=== PATIENT | male | born 1960 | race Caucasian/White ===

== ENCOUNTER 2017-01-22 22:17 | Inpatient (IN) ==
[2017-01-22] MEDS ORDERED: NOREPINEPHRINE 4 MG/4 ML VIAL IV ONE (22:49)
--- NOTE | 2017-01-22 23:06 | Emergency Department Note ---
Hunter Schaffer Brittany, am scribing for, and in the presence of, Storm Gutierrez MD 23:02. Matt Schaffer Robert M, MD, personally performed the services described in this documentation, ascribed by Taina Harrison in my presence, and it is both accurate and complete 304 . Arrival - Arrival Chief Complaint: Urogenital - Male Stated Complaint: Sepsis, UTI ED Nursing Triage Note: transferred from [facility] with diagnosis of sepsis, uti. patient was diagnosed with uti earlier this week and put on bactrim. antibiotic changed yesterday to cipro due to failed treatment. ems reports temp of 100 and given motrin prior to transfer. 97.8 at time of triage. Mode of Arrival: Stretcher Limitations: No Limitations Source: Patient, Significant other, RN Notes Reviewed - History of Present Illness HPI Narrative: Patient is a 56 y/o white male presenting to the ED by EMS from [facility] for further evaluation of Sepsis. Patient states that over the past week he began to experience generalized weakness with which he was bedridden for 3 days. The following Thursday he went to work as scheduled but after becoming dizzy and weaker he left to seek medical attention at primary care clinic. He then left after not being able to get seen. He reports from there he stayed home the following day due to worsening of symptoms even becoming disoriented and experiencing worsening of weakness. He states he had also had some difficulty with urination and considered possible UTI, but due to history of urinary and bowel problems s/p back injury a few years ago he was unsure about etiology of problem. He reports he was seen in clinic later that day and was diagnosed with a UTI after having a WBC count of 17,000 and placed on Bactrim. Patient states two days later he presented back to the clinic due and placed on Cipro due to Bactrim not being effective and was told his WBC count had increased to 19,000. After experiencing an increase in fatigue, weakness, and not feeling any better he presented to [facility] ER and was found to be septic with a WBC count of 29,000. In room patient is hypotensive with a blood pressure of 76/36 mmHg. Patient is mentating clearly and is oriented to person, place, and time He has no other complaint/pain. Allergies/Adverse Reactions: Allergies Allergy/AdvReac Type Severity Reaction Status Date / Time No Known Allergies Allergy Verified 07/24/15 08:32 Review of System - Review of System 12 point system: reviewed and no additional remarkable complaints except as stated - Review of System Constitutional: Present: fever, weakness Genitourinary male: Present: as per HPI, dysuria Medical,Surgical,& Family Hx - Medical History Cardio: History of: Hypertension, Cardiovascular Problems (vena cava implant) Musculoskeletal: History of: Back/Neck Problems (back surgery 2016) - Social History Smoking Status: Never smoker Frequency of Alcohol Use: None Type of Drug Use: None Exam Vital Signs: Vital Signs Temperature 97.8 F 01/22/17 22:17 Pulse Rate 96 H 01/22/17 22:17 Respiratory Rate 20 01/22/17 22:17 Blood Pressure 88/54 01/22/17 22:17 O2 Sat by Pulse Oximetry 95 01/22/17 22:17 - General General appearance: alert, in no apparent distress, obese (morbidly) - Head Head exam: Present: atraumatic, normocephalic, normal inspection - Eye Eye exam: Present: normal appearance, PERRL, EOMI - ENT ENT exam: Present: normal exam, normal oropharynx, mucous membranes moist - Neck Neck exam: Present: normal inspection, full ROM, trachea midline - Chest Chest inspection: Present: normal inspection, symmetric chest wall rise - Respiratory Respiratory exam: Present: normal lung sounds bilaterally. Absent: rales, rhonchi, wheezes - Cardiovascular Cardiovascular exam: Present: regular rate, normal rhythm, normal heart sounds. Absent: murmur, rubs, gallop - Abdominal Exam Abdominal exam: Present: soft, tenderness (dull paraumbilical tenderness), normal bowel sounds. Absent: distention - Extremities Exam Extremities exam: Present: normal inspection - Back Exam Back exam: Present: normal inspection - Neurological Exam Neurological exam: Present: alert, oriented X3 (patient is mentating clearly and is oriented to person, place, and time), CN II-XII intact. Absent: motor sensory deficit - Psychiatric Psychiatric exam: Present: normal affect - Skin Skin exam: Present: warm, dry, intact, normal color. Absent: diaphoresis Course - Consultations Consultation #1: Dr. Monika Jones will evaluate and admit the patient to the hospitalist service. He will be admitted to the ICU. He requests I place a central line. Time: 23:05 Procedures - Central Line Placement Right IJ Consent Obtained: verbal consent Time Out Performed: No Patient Placed on Monitor/Pulse Ox: Yes MD Prep: mask, gown, gloves Central Line Prep: Chlorhexidine scrub Local Anesthetic: lidocaine 1% Amount of anesthesia used (mL): 5 Ultrasound Used for Placement: Yes Central Line Lumen Inserted: triple Post Procedure: sutured in place, good blood return, all ports aspirated, flushed, capped, sterile dressing applied Post Procedure X-Ray: tip of catheter in good position Patient Tolerated Procedure: well, no complications Complications: none Critical Care Time Critical Care Time: Yes Total Critical Care Time: 43 Disposition Clinical Impression: Sepsis, Urinary tract infection Case discussed with: patient, patient's family Disposition: Still a Patient Condition: Stable Time of Disposition: 23:19
[2017-01-22] MEDS ORDERED: MORPHINE 2 MG/1 ML SYRINGE IV PRN (23:52)
[2017-01-22] MEDS ORDERED: ALBUTEROL/IPRATROPIUM 3 ML NEB RESP TX PRN (23:52)
[2017-01-22] MEDS ORDERED: ONDANSETRON 4 MG/2 ML VIAL IV PRN (23:52)
[2017-01-22] MEDS ORDERED: SODIUM CHLORIDE 0.9% 4,500 ML IV ONE (23:58)
[2017-01-23] MEDS: NOREPINEPHRINE 8 MG in SODIUM CHLORIDE 0.9% 242 ML IV SCH
--- NOTE | 2017-01-23 00:14 | Hospitalist History & Physical ---
Assessment and Plan - Time spent with patient Time spent with patient: Greater than 30 minutes (1) Sepsis Status: Acute Assessment and plan: Sepsis secondary to urinary tract infection and prostatitis related to urinary retention. I suspect gram-negative bacteremia given his degree of lactic acidosis and hypotension . The patient has received 4 L of IV fluid resuscitation. A central line was placed in the emergency department. Current Visit: Yes Qualifiers: Sepsis type: sepsis due to unspecified organism Qualified Code(s): A41.9 - Sepsis, unspecified organism (2) Urinary tract infection Status: Acute Assessment and plan: Urine culture and blood culture obtained. Patient started on Merrem and Levaquin. Urology consult. Current Visit: Yes Qualifiers: Urinary tract infection type: site unspecified Hematuria presence: without hematuria Qualified Code(s): N39.0 - Urinary tract infection, site not specified (3) NAJMA (acute kidney injury) Status: Acute Assessment and plan: Due to sepsis and hypotension with prerenal azotemia. IV fluids given. Avoid nephrotoxic medications. Follow-up a.m. labs. Current Visit: Yes (4) Lactic acidosis Status: Acute Current Visit: Yes (5) Prostatitis Status: Acute Assessment and plan: Consult urology. Continue fluoroquinolones and Merrem. Current Visit: Yes Qualifiers: Prostatitis type: acute Qualified Code(s): N41.0 - Acute prostatitis (6) Urinary retention Status: Chronic Assessment and plan: Nursing staff was unable to pass a Caruso despite 2 attempts and a coud catheter. Dr. Cleveland in the emergency department to evaluate patient and perform a dilatation and Caruso placement. The patient has a history of back pain and neuropathy and has an element of chronic urinary retention although not usually this bad. A bladder scan performed in the emergency department showed a residual urine of greater than 1000 cc. Current Visit: Yes (7) Chronic back pain Status: Chronic Current Visit: Yes Qualifiers: Back pain location: low back pain (8) Neuropathy Status: Chronic Current Visit: Yes (9) Hypertension Status: Chronic Current Visit: Yes Qualifiers: Hypertension type: essential hypertension Qualified Code(s): I10 - Essential (primary) hypertension History of Present Illness History of present illness: Mr. Gloria is a 56 year old male Allergies Allergy/AdvReac Type Severity Reaction Status Date / Time No Known Allergies Allergy Verified 07/24/15 08:32 Medical,Surgical,& Family Hx - Medical History Cardio: History of: Hypertension, Cardiovascular Problems (vena cava implant) Musculoskeletal: History of: Back/Neck Problems (back surgery 2016) - Social History Smoking Status: Never smoker Frequency of Alcohol Use: None Type of Drug Use: None 12 point system: reviewed and no additional remarkable complaints except as stated - Constitutional Constitutional: Present: as per HPI, chills, fatigue, fever(s), lethargy, malaise - Genitourinary Genitourinary: Present: as per HPI, difficulty urinating, dysuria, other (Pain in the perineal area posterior to the scrotum.). Absent: hematuria Exam - Constitutional Vitals: Period Temp Pulse Resp BP Sys/Mccray Pulse Ox Last 24 Hr 97.8 F 96 20 88/54 95 Exam: Constitutional System: Severe distress. No tremulousness. Hypotensive and tachycardic. Morbidly obese Head: Normocephalic, atraumatic. Ears, Nose and Throat System: No pain or tenderness. No epistaxis or discharge Eyes System: Pupils equal, round, and reactive. Extraocular muscles intact. Neck: Supple, without adenopathy, No jugular venous distention. No thyromegaly, neck mass, or prior surgery apparent. Respiratory System: Chest clear to auscultation. Cardiovascular System: Heart with regular rate and rhythm. No murmur. GI System: Abdomen soft, nontender. Normo active bowel sounds present. Musculoskeletal System: limbs with no pedal edema. Full distal pulses. Neurological System: No discernable sensory deficit. No aphasia Psychiatric System: Conversation is rational Results - Labs Lab Results: I have reviewed the past 24 hour labs Labs: The labs from the outside facility were reviewed.
[2017-01-23] MEDS ORDERED: PROMETHAZINE 25 MG/1 ML VIAL ONE (01:21)
[2017-01-23] MEDS ORDERED: PROMETHAZINE 25 MG/1 ML VIAL IM ONE (01:22)
[2017-01-23] MEDS ORDERED: MEPERIDINE 50 MG/1 ML VIAL IM ONE (01:22)
[2017-01-23] MEDS ORDERED: MEPERIDINE 50 MG/1 ML VIAL ONE (01:22)
--- NOTE | 2017-01-23 01:59 | Urology Consultation ---
History of Present Illness - Data of Consult Consult date: 01/22/17 - Consult Narrative History of present illness: Mr. Gloria is a 56 year old white male with past history of urethral stricture was seen with Urinary Tract Infection and Sepsis. He was dilated with 22 Turkmen with Baptiste followers and a 16 Anthony was passed. He has a posterior urethral stricture and had over 1000 cc's of residual urine. I will leave anthony in for now. CC: Chloe Vital MD - Home Medications and Allergies Allergies/Adverse Reactions: Allergies Allergy/AdvReac Type Severity Reaction Status Date / Time No Known Allergies Allergy Verified 07/24/15 08:32
[2017-01-23 03:10] LABS: Apearance,Urine CLEAR (Clear); Bacteria,Urine Occasional /HPF (Few); Bilirubin,Urine Negative (Negative); Blood, Urine Small mg/dL (Negative); Glucose,Urine (UA) Negative (Negative); Ketones,Urine Negative (Negative); Mucus,Urine Occasional /LPF (Occasional); Nitrite,Urine Negative (Negative); Protein,Urine Negative; RBC,Urine 27 /HPF (0-4); Urine Color Yellow (Yellow); Urine Specific Gravity 1.018 (1.001-1.035); Urine Urobilinogen < 2.0 EU/DL (0.2-1.0); WBC,Urine 5 /HPF (0-6)
[2017-01-23] MEDS: MEROPENEM 1,000 MG in SODIUM CHLORIDE 0.9% 100 ML IV SCH ×3 (03:49→16:22)
[2017-01-23] MEDS: LEVOFLOXACIN INJ 750 MG in PREMIX 1 EACH IV SCH (03:49)
[2017-01-23] MEDS: SODIUM CHLORIDE 0.9% 1,000 ML IV SCH ×3 (03:50→19:30)
[2017-01-23 04:29] LABS: Basophils # 0.1 10*3/uL (0.0-0.2); Basophils % 0.2 % (0.0-0.8); Eosinophils # 0.1 10*3/uL (0.0-0.87); Eosinophils % 0.3 % (0.00-10.9); Hematocrit 31.7 VOL% (42.0-52.0); Hemoglobin 9.9 GM/DL (14.0-18.0); Immature Granulocytes % 0.9 %; Immature Granulocytes Absolute 0.27 #; Lymphocytes # 0.9 10*3/uL (1.4-4.0); Lymphocytes % 3.2 % (21.2-54.2); Mean Corpuscular HGB Conc 31.2 GM/DL (32-36); Mean Corpuscular Hemoglobin 25 PG (27-34); Mean Corpuscular Volume 81.1 FL (87-102); Mean Platelet Volume 11.6 FL (9.6-12.0); Monocytes % 3.5 % (1.7-12.7); Neutrophils # 26.6 10*3/uL (1.4-7.4); Neutrophils % 91.9 % (38.7-73.9); Platelet Count 273 T/CUMM (130-400); Red Blood Count 3.91 MC/CUMM (3.8-5.5); Red Cell Distribution Width 13.9 % (9.3-17.3)
[2017-01-23 05:03] LABS: Albumin 2.7 G/DL (3.4-5.0); Bilirubin,Total 0.5 MG/DL (0.2-1.0); Calcium 7.6 MG/DL (8.5-10.1); Magnesium 2.1 MG/DL (1.8-2.4); Osmolality,Calculated 282.7 MOS/KG (273-304); Potassium 4.3 MMOL/L (3.5-5.1); Total Protein 5.8 G/DL (6.4-8.3)
[2017-01-23 05:24] LABS: Band Neutrophils 10 % (0-10); Eosinophils 1 % (0-10); Lymphocytes 3 % (20-55); Segmented Neutrophils 83 % (50-85); Total Cells Counted 100
[2017-01-23 05:25] LABS: Elliptocytes Few; Hypochromasia 1+; Platelet Estimate Adequate
--- NOTE | 2017-01-23 07:15 | XRay Report ---
XR chest 1V portable Indication: Catheter placement Comparison: None available Findings: The heart and mediastinum are normal in size and configuration. Right internal jugular catheter is present with tip overlying superior vena cava. The pulmonary vascularity is normal in caliber. No lung infiltrates, effusions, pneumothorax or other abnormality is demonstrated. Impression: Catheter appears within normal limits. No other interval changes. PROCEDURE INTERPRETED AT [facility] [place] DEPARTMENT OF RADIOLOGY Final Report Signed by: Dr. Melvin Santiago
--- NOTE | 2017-01-23 07:39 | Urology Progress Note ---
Urology - PN: Subj Interval history: The patient's urine is clear post urethral dilatation. His creatinine is normal and his urinalysis shows 5 WBCs. He was previously diagnosed in [place] earlier this week with a urinary tract infection is been on antibiotic so that may be the reason that there is no evidence of infection at this time. I will leave the Caruso catheter in for now but it can come out as needed. The patient did have over thousand cc residual urine when catheterized last night Exam - Constitutional Vitals: Period Temp Pulse Resp BP Sys/Mccray Pulse Ox Last 24 Hr 99.7 F-99.9 F 99-112 18-25 68-112/51-68 96-100 Results - Labs CBC & BMP: 01/23/17 04:18 01/23/17 04:18
[2017-01-23] MEDS: ACETAMINOPHEN 325 MG TABLET PO PRN (07:48)
--- NOTE | 2017-01-23 08:32 | Physician Query Form ---
CLICK EDIT DOCUMENT TO SELECT QUERY ANSWER --> OK --> SIGN Amanda Gutierrez RN, CCDS Certified Clinical Senior Product Marketing Manager W) [phone] (f) [phone] [email or web address] PROVIDERS: Make your selection(s) from the choices in EACH section by typing an "x" and enter comments in the comment section. Please use your independent medical judgment in providing your response. This request does not imply that any particular answer is desired or expected. CLINICAL INDICATORS: (Providers should not edit this section) The medical record indicates that the patient was admitted with sepsis due to UTI, BP in the ER was 88/54/ later would drop to 68/53, and "received 4 L of IV fluid resuscitation". Please clarify which, if any, of the following is the etiology of the above symptoms and treatment rendered: (x ) Septic shock ( ) Hypovolemic shock ( ) Cardiogenic shock ( ) Hemorrhagic shock ( ) Traumatic shock ( ) Shock due to, please specify etiology: ( ) Shock, unknown etiology ( ) Drug induced, please specify substance: ( ) Iatrogenic Hypotension ( ) Orthostatic Hypotension ( ) Hypotension, unknown etiology ( ) Other, please specify: ( ) Clinically unable to determine COMMENTS: Use of terms such as suspected, likely, or probable (associated with a specific diagnosis that is being evaluated, monitored, or treated as if it exists) are acceptable and can be restated in the discharge summary if not ruled out. MTDD
[2017-01-23] MEDS: ENOXAPARIN 40 MG/0.4 ML SYRINGE SUBCUT SCH (09:07)
[2017-01-23] MEDS: PANTOPRAZOLE 40 MG TABLET PO SCH (09:08)
--- NOTE | 2017-01-23 12:36 | Hospitalist Progress Note ---
Assessment and Plan - Time spent with patient Time spent with patient: Greater than 30 minutes (1) Sepsis Status: Acute Assessment and plan: Chest x-ray clear, this is felt to be secondary to UTI. UA is not very telling given that he was in previous antibiotics. Continue antibiotics. Will add vancomycin to regimen. Current Visit: Yes Qualifiers: Sepsis type: sepsis due to unspecified organism Qualified Code(s): A41.9 - Sepsis, unspecified organism (2) Urinary tract infection Status: Acute Assessment and plan: Continue antibiotics. Current Visit: Yes Qualifiers: Urinary tract infection type: site unspecified Hematuria presence: without hematuria Qualified Code(s): N39.0 - Urinary tract infection, site not specified (3) Prostatitis Status: Acute Assessment and plan: Urology is on board. Current Visit: Yes Qualifiers: Prostatitis type: acute Qualified Code(s): N41.0 - Acute prostatitis Hospitalist: Subjective Interval history: Patient states he is doing a little better however still very diaphoretic does not feel well. He was admitted overnight with urinary tract infection and sepsis. Blood pressures are soft this morning with the systolics in the upper 80s. Exam - Constitutional Vitals: Period Temp Pulse Resp BP Sys/Mccray Pulse Ox Last 24 Hr 99.5 F-102.0 F 97-112 18-25 68-112/50-68 92-100 General appearance: no acute distress - Head Head exam: Present: normocephalic, atraumatic - Eye Eye exam: Present: EOMI Pupils: Present: WERNER - ENT ENT exam: Present: normal exam - Neck Neck exam: Present: normal inspection - Respiratory Respiratory exam: Present: clear to auscultation bilaterally. Absent: rhonchi, wheezes - Cardiovascular Cardiovascular exam: Present: regular rate and rhythm. Absent: gallop, rubs, systolic murmur - GI/Abdominal GI/Abdominal exam: Present: normal bowel sounds, soft. Absent: distended, firm , guarding, tenderness, rebound - Extremities Exam Extremities exam: Present: normal inspection. Absent: calf tenderness, edema Results - Labs CBC & BMP: 01/23/17 04:18 01/23/17 04:18 Lab Results: I have reviewed the past 24 hour labs
[2017-01-23] MEDS: VANCOMYCIN INJ 2,500 MG in SODIUM CHLORIDE 0.9% 500 ML IV SCH (14:55)
[2017-01-23] MEDS ORDERED: ZALEPLON 5 MG CAPSULE PO PRN (22:16)
[2017-01-24] MEDS: MEROPENEM 1,000 MG in SODIUM CHLORIDE 0.9% 100 ML IV SCH ×4 (00:30→23:30)
[2017-01-24] MEDS: LEVOFLOXACIN INJ 750 MG in PREMIX 1 EACH IV SCH ×2 (00:30→23:00)
[2017-01-24] MEDS: SODIUM CHLORIDE 0.9% 1,000 ML IV SCH ×4 (00:48→20:17)
[2017-01-24] MEDS: NOREPINEPHRINE 8 MG in SODIUM CHLORIDE 0.9% 242 ML IV SCH (00:48)
[2017-01-24] MEDS: VANCOMYCIN INJ 2,500 MG in SODIUM CHLORIDE 0.9% 500 ML IV SCH ×2 (02:23→14:14)
[2017-01-24 08:29] LABS: Basophils # 0.1 10*3/uL (0.0-0.2); Basophils % 0.4 % (0.0-0.8); Eosinophils # 0.2 10*3/uL (0.0-0.87); Eosinophils % 1.1 % (0.00-10.9); Hematocrit 31.4 VOL% (42.0-52.0); Hemoglobin 9.6 GM/DL (14.0-18.0); Immature Granulocytes % 0.5 %; Immature Granulocytes Absolute 0.06 #; Lymphocytes # 0.9 10*3/uL (1.4-4.0); Lymphocytes % 6.8 % (21.2-54.2); Mean Corpuscular HGB Conc 30.6 GM/DL (32-36); Mean Corpuscular Hemoglobin 25 PG (27-34); Mean Corpuscular Volume 82.8 FL (87-102); Monocytes # 0.9 10*3/uL (0.11-0.8); Neutrophils # 11.2 10*3/uL (1.4-7.4); Neutrophils % 84.2 % (38.7-73.9); Platelet Count 207 T/CUMM (130-400); Red Blood Count 3.79 MC/CUMM (3.8-5.5); Red Cell Distribution Width 13.7 % (9.3-17.3); White Blood Count 13.3 T/CUMM (4-12)
[2017-01-24] MEDS: ENOXAPARIN 40 MG/0.4 ML SYRINGE SUBCUT SCH (08:50)
[2017-01-24] MEDS: PANTOPRAZOLE 40 MG TABLET PO SCH (08:50)
[2017-01-24 08:56] LABS: Calcium 7.5 MG/DL (8.5-10.1); Osmolality,Calculated 277.5 MOS/KG (273-304); Potassium 4.2 MMOL/L (3.5-5.1)
--- NOTE | 2017-01-24 10:22 | Hospitalist Progress Note ---
Assessment and Plan - Time spent with patient Time spent with patient: Greater than 30 minutes (1) Sepsis Status: Acute Assessment and plan: Resolved. Cultures are negative thus far. Current Visit: Yes Qualifiers: Sepsis type: sepsis due to unspecified organism Qualified Code(s): A41.9 - Sepsis, unspecified organism (2) Urinary tract infection Status: Acute Assessment and plan: Continue antibiotics. Current Visit: Yes Qualifiers: Urinary tract infection type: site unspecified Hematuria presence: without hematuria Qualified Code(s): N39.0 - Urinary tract infection, site not specified (3) Prostatitis Status: Acute Assessment and plan: Urology is on board. Current Visit: Yes Qualifiers: Prostatitis type: acute Qualified Code(s): N41.0 - Acute prostatitis Hospitalist: Subjective Interval history: Reports feeling a little better. Fever is improving. Blood pressure has normalized. Exam - Constitutional Vitals: Period Temp Pulse Resp BP Sys/Mccray Pulse Ox Last 24 Hr 98.2 F-99.1 F 74-93 12-22 86-135/48-88 92-100 General appearance: no acute distress - Head Head exam: Present: normocephalic, atraumatic - Eye Eye exam: Present: EOMI Pupils: Present: WERNER - ENT ENT exam: Present: normal exam - Neck Neck exam: Present: normal inspection - Respiratory Respiratory exam: Present: clear to auscultation bilaterally. Absent: rhonchi, wheezes - Cardiovascular Cardiovascular exam: Present: regular rate and rhythm. Absent: gallop, rubs, systolic murmur - GI/Abdominal GI/Abdominal exam: Present: normal bowel sounds, soft. Absent: distended, firm , guarding, tenderness, rebound - Extremities Exam Extremities exam: Present: normal inspection. Absent: calf tenderness, edema Results - Labs CBC & BMP: 01/24/17 08:19 01/24/17 08:19 Lab Results: I have reviewed the past 24 hour labs
[2017-01-24] MEDS ORDERED: hydrALAZINE 20 MG/1 ML VIAL IV ONE (11:46)
[2017-01-24] MEDS ORDERED: hydrALAZINE 20 MG/1 ML VIAL IV PRN (11:48)
[2017-01-24] MEDS: GABAPENTIN 600 MG TABLET PO SCH ×2 (12:00→20:05)
[2017-01-24] MEDS: BISACODYL 5 MG TABLET PO PRN (12:00)
[2017-01-25] MEDS: VANCOMYCIN INJ 2,500 MG in SODIUM CHLORIDE 0.9% 500 ML IV SCH ×2 (03:00→14:32)
[2017-01-25] MEDS: GABAPENTIN 600 MG TABLET PO SCH ×3 (03:55→20:45)
[2017-01-25 06:05] LABS: Basophils # 0.1 10*3/uL (0.0-0.2); Basophils % 0.4 % (0.0-0.8); Eosinophils # 0.2 10*3/uL (0.0-0.87); Eosinophils % 1.7 % (0.00-10.9); Hematocrit 29.4 VOL% (42.0-52.0); Hemoglobin 9.1 GM/DL (14.0-18.0); Immature Granulocytes % 0.6 %; Immature Granulocytes Absolute 0.09 #; Lymphocytes # 1.6 10*3/uL (1.4-4.0); Lymphocytes % 11.4 % (21.2-54.2); Mean Corpuscular Hemoglobin 25 PG (27-34); Mean Corpuscular Volume 80.5 FL (87-102); Mean Platelet Volume 12.1 FL (9.6-12.0); Monocytes # 1.2 10*3/uL (0.11-0.8); Monocytes % 8.4 % (1.7-12.7); Neutrophils # 10.9 10*3/uL (1.4-7.4); Neutrophils % 77.5 % (38.7-73.9); Platelet Count 221 T/CUMM (130-400); Red Blood Count 3.65 MC/CUMM (3.8-5.5); Red Cell Distribution Width 13.6 % (9.3-17.3); White Blood Count 14.1 T/CUMM (4-12)
[2017-01-25 06:40] LABS: Calcium 7.5 MG/DL (8.5-10.1); Osmolality,Calculated 277.4 MOS/KG (273-304); Potassium 4.1 MMOL/L (3.5-5.1)
[2017-01-25] MEDS: SODIUM CHLORIDE 0.9% 1,000 ML IV SCH ×4 (08:24→23:48)
[2017-01-25] MEDS: PANTOPRAZOLE 40 MG TABLET PO SCH (08:25)
[2017-01-25] MEDS: ENOXAPARIN 40 MG/0.4 ML SYRINGE SUBCUT SCH (08:25)
[2017-01-25] MEDS: MEROPENEM 1,000 MG in SODIUM CHLORIDE 0.9% 100 ML IV SCH ×3 (09:34→23:45)
--- NOTE | 2017-01-25 12:29 | Hospitalist Progress Note ---
Assessment and Plan - Time spent with patient Time spent with patient: Greater than 30 minutes (1) Sepsis Status: Acute Assessment and plan: Resolved. Cultures are negative thus far. Current Visit: Yes Qualifiers: Sepsis type: sepsis due to unspecified organism Qualified Code(s): A41.9 - Sepsis, unspecified organism (2) Urinary tract infection Status: Acute Assessment and plan: Continue antibiotics. Current Visit: Yes Qualifiers: Urinary tract infection type: site unspecified Hematuria presence: without hematuria Qualified Code(s): N39.0 - Urinary tract infection, site not specified (3) Prostatitis Status: Acute Assessment and plan: Urology is on board. Current Visit: Yes Qualifiers: Prostatitis type: acute Qualified Code(s): N41.0 - Acute prostatitis (4) Testicular abnormality Status: Acute Assessment and plan: Urology is on board in the meantime will order a testicular ultrasound. Current Visit: Yes Hospitalist: Subjective Interval history: Patient reports swelling testicles. Otherwise no complaints. No overnight events and no fevers. Exam - Constitutional Vitals: Period Temp Pulse Resp BP Sys/Mccray Pulse Ox Last 24 Hr 97.5 F-99 F 80-95 18-22 104-144/60-106 93-97 General appearance: normal weight, no acute distress - Head Head exam: Present: normal inspection, normocephalic, atraumatic - Eye Eye exam: Present: EOMI Pupils: Present: WERNER - ENT ENT exam: Present: normal exam - Neck Neck exam: Present: normal inspection - Respiratory Respiratory exam: Present: clear to auscultation bilaterally. Absent: rhonchi, wheezes - Cardiovascular Cardiovascular exam: Present: regular rate and rhythm. Absent: gallop, rubs, systolic murmur - GI/Abdominal GI/Abdominal exam: Present: normal bowel sounds, soft. Absent: distended, firm , guarding, tenderness, rebound - Extremities Exam Extremities exam: Present: normal inspection, other (Testicle left is swollen and tender with erythema surrounding scrotum. Scrotum is general edematous). Absent: calf tenderness, edema Results - Labs CBC & BMP: 01/25/17 04:00 01/25/17 05:46 Lab Results: I have reviewed the past 24 hour labs
--- NOTE | 2017-01-25 13:49 | Ultrasound Report ---
History: Testicular swelling and pain Date: 01/25/2017 Study: Scrotal ultrasound to include duplex Comparison exam: No previous similar study Real-time ultrasound images were captured and archived. Grayscale, color Doppler, and pulse wave Doppler images are submitted. The right testicle measures 31 x 25 x 31 mm; the left measures 44 x 34 x 37 mm. There is no intrinsic testicular mass. There is color Doppler flow to either testicle without evidence of torsion. There is mild to moderate left hydrocele with some internal septation. There is enlargement of the left epididymis compatible with changes of epididymitis. The head of the left epididymis measures 13 x 8 x 16 mm as compared to 10 x 10 x 11 mm on the right. There is soft tissue swelling about the scrotum. Impression: Evidence of epididymitis on the left. Complex mild to moderate left hydrocele. Scrotal soft tissue edema PROCEDURE INTERPRETED AT [facility] DEPARTMENT OF RADIOLOGY Final Report Signed by: Dr. Karina Salinas
--- NOTE | 2017-01-25 14:48 | Urology Progress Note ---
Urology - PN: Subj Interval history: The patient has developed pain and swelling in the left testicle and ultrasound compatible with left epididymitis. The patient's urine culture is negative and this probably reflects the antibiotics he was on prior to admission. I am going to DC his Caruso catheter today and continue Flomax. We will start intermittent catheterization as needed Exam - Constitutional Vitals: Period Temp Pulse Resp BP Sys/Mccray Pulse Ox Last 24 Hr 97.5 F-99 F 80-95 18-20 118-144/69-85 93-97 Results - Labs CBC & BMP: 01/25/17 04:00 01/25/17 05:46
[2017-01-25] MEDS: TAMSULOSIN 0.4 MG CAPSULE PO SCH (20:43)
[2017-01-25] MEDS: LEVOFLOXACIN INJ 750 MG in PREMIX 1 EACH IV SCH (23:44)
[2017-01-26] MEDS: VANCOMYCIN INJ 2,500 MG in SODIUM CHLORIDE 0.9% 500 ML IV SCH ×2 (03:01→15:03)
[2017-01-26] MEDS: GABAPENTIN 600 MG TABLET PO SCH ×3 (03:08→21:32)
--- NOTE | 2017-01-26 07:48 | Urology Progress Note ---
Urology - PN: Subj Interval history: The patient is afebrile but he still has a slightly elevated white count. The catheter was removed yesterday and the patient has incontinence which could be overflow incontinence. He has not been catheterized so on the recommended we start in and out caths for residual urine to evaluate his bladder emptying. The patient's urine culture here is negative and he was originally seen by family doctor in [place] who started him on Bactrim initially and then changed him to Cipro. I am going to contact their office to see if a urine culture was done. Exam - Constitutional Vitals: Period Temp Pulse Resp BP Sys/Mccray Pulse Ox Last 24 Hr 97.5 F-99.5 F 42-93 18-20 109-138/69-82 92-98 Results - Labs CBC & BMP: 01/25/17 04:00 01/25/17 05:46
[2017-01-26] MEDS: MEROPENEM 1,000 MG in SODIUM CHLORIDE 0.9% 100 ML IV SCH ×3 (09:10→23:36)
[2017-01-26] MEDS: TAMSULOSIN 0.4 MG CAPSULE PO SCH ×2 (09:15→21:32)
[2017-01-26] MEDS: FINASTERIDE 5 MG TABLET PO SCH (09:15)
[2017-01-26] MEDS: PANTOPRAZOLE 40 MG TABLET PO SCH (09:15)
[2017-01-26] MEDS: SODIUM CHLORIDE 0.9% 1,000 ML IV SCH ×2 (09:17→16:02)
[2017-01-26] MEDS: ENOXAPARIN 40 MG/0.4 ML SYRINGE SUBCUT SCH (09:17)
[2017-01-26 09:19] LABS: Basophils # 0.1 10*3/uL (0.0-0.2); Basophils % 0.4 % (0.0-0.8); Eosinophils # 0.4 10*3/uL (0.0-0.87); Eosinophils % 2.4 % (0.00-10.9); Hematocrit 32.8 VOL% (42.0-52.0); Immature Granulocytes % 0.8 %; Immature Granulocytes Absolute 0.12 #; Lymphocytes # 1.5 10*3/uL (1.4-4.0); Mean Corpuscular HGB Conc 30.5 GM/DL (32-36); Mean Corpuscular Hemoglobin 25 PG (27-34); Mean Corpuscular Volume 81.6 FL (87-102); Mean Platelet Volume 11.3 FL (9.6-12.0); Monocytes % 6.7 % (1.7-12.7); Neutrophils # 11.8 10*3/uL (1.4-7.4); Neutrophils % 79.7 % (38.7-73.9); Platelet Count 235 T/CUMM (130-400); Red Blood Count 4.02 MC/CUMM (3.8-5.5); Red Cell Distribution Width 13.5 % (9.3-17.3); White Blood Count 14.8 T/CUMM (4-12)
[2017-01-26 09:44] LABS: Osmolality,Calculated 276.8 MOS/KG (273-304)
--- NOTE | 2017-01-26 12:08 | Hospitalist Progress Note ---
Assessment and Plan - Time spent with patient Time spent with patient: Greater than 30 minutes (1) Urinary tract infection Status: Acute Assessment and plan: Continue antibiotics. Current Visit: Yes Qualifiers: Urinary tract infection type: site unspecified Hematuria presence: without hematuria Qualified Code(s): N39.0 - Urinary tract infection, site not specified (2) Prostatitis Status: Acute Assessment and plan: Urology is on board. Current Visit: Yes Qualifiers: Prostatitis type: acute Qualified Code(s): N41.0 - Acute prostatitis (3) Acute epididymitis Status: Acute Assessment and plan: Continue current treatment. Current Visit: Yes Hospitalist: Subjective Interval history: Complains of urine incontinence. Exam - Constitutional Vitals: Period Temp Pulse Resp BP Sys/Mccray Pulse Ox Last 24 Hr 98.0 F-99.5 F 42-93 18-20 109-138/69-87 92-98 General appearance: no acute distress - Head Head exam: Present: normocephalic, atraumatic - Eye Eye exam: Present: EOMI Pupils: Present: WERNER - ENT ENT exam: Present: normal exam - Neck Neck exam: Present: normal inspection - Respiratory Respiratory exam: Present: clear to auscultation bilaterally. Absent: rhonchi, wheezes - Cardiovascular Cardiovascular exam: Present: regular rate and rhythm. Absent: gallop, rubs, systolic murmur - GI/Abdominal GI/Abdominal exam: Present: normal bowel sounds, soft. Absent: distended, firm , guarding, tenderness, rebound - Extremities Exam Extremities exam: Present: normal inspection, other (Testicle swollen however improved from yesterday). Absent: calf tenderness, edema Results - Labs CBC & BMP: 01/26/17 09:07 01/26/17 09:07 Lab Results: I have reviewed the past 24 hour labs
[2017-01-26] MEDS: ACETAMINOPHEN 325 MG TABLET PO PRN (12:42)
[2017-01-27] MEDS: SODIUM CHLORIDE 0.9% 1,000 ML IV SCH ×3 (00:05→16:50)
[2017-01-27] MEDS: VANCOMYCIN INJ 2,500 MG in SODIUM CHLORIDE 0.9% 500 ML IV SCH ×2 (02:36→15:00)
[2017-01-27] MEDS: GABAPENTIN 600 MG TABLET PO SCH ×3 (04:22→20:03)
[2017-01-27 04:32] LABS: Basophils % 0.3 % (0.0-0.8); Eosinophils # 0.5 10*3/uL (0.0-0.87); Eosinophils % 3.2 % (0.00-10.9); Hematocrit 29.5 VOL% (42.0-52.0); Hemoglobin 8.7 GM/DL (14.0-18.0); Immature Granulocytes % 1.3 %; Immature Granulocytes Absolute 0.19 #; Lymphocytes # 2.1 10*3/uL (1.4-4.0); Lymphocytes % 14.5 % (21.2-54.2); Mean Corpuscular HGB Conc 29.5 GM/DL (32-36); Mean Corpuscular Hemoglobin 24 PG (27-34); Mean Corpuscular Volume 82.2 FL (87-102); Mean Platelet Volume 11.6 FL (9.6-12.0); Monocytes # 1.2 10*3/uL (0.11-0.8); Monocytes % 8.5 % (1.7-12.7); Neutrophils # 10.5 10*3/uL (1.4-7.4); Neutrophils % 72.2 % (38.7-73.9); Platelet Count 259 T/CUMM (130-400); Red Blood Count 3.59 MC/CUMM (3.8-5.5); Red Cell Distribution Width 13.6 % (9.3-17.3); White Blood Count 14.6 T/CUMM (4-12)
[2017-01-27 05:27] LABS: Calcium 7.7 MG/DL (8.5-10.1); Osmolality,Calculated 282.1 MOS/KG (273-304)
--- NOTE | 2017-01-27 07:48 | Urology Progress Note ---
Urology - PN: Subj Interval history: The patient is in urinary retention with large residual urines. This could be BPH or neurogenic bladder. The patient needs to learn self-catheterization so he can do this post discharge. I got the records from his family doctor and when he was seen Thursday of last week he had an elevated white count but he had a negative urinalysis negative urine culture and a negative CT of the abdomen without contrast. I think the epididymitis that he has now was due to the dilatation and the Caruso catheter. Exam - Constitutional Vitals: Period Temp Pulse Resp BP Sys/Mccray Pulse Ox Last 24 Hr 97.2 F-98.9 F 82-92 18-20 124-148/68-89 93-99 Results - Labs CBC & BMP: 01/27/17 04:00 01/27/17 04:00
[2017-01-27] MEDS: MEROPENEM 1,000 MG in SODIUM CHLORIDE 0.9% 100 ML IV SCH ×2 (08:34→17:48)
[2017-01-27] MEDS: TAMSULOSIN 0.4 MG CAPSULE PO SCH ×2 (08:35→20:03)
[2017-01-27] MEDS: FINASTERIDE 5 MG TABLET PO SCH (08:35)
[2017-01-27] MEDS: PANTOPRAZOLE 40 MG TABLET PO SCH (08:35)
[2017-01-27] MEDS: ENOXAPARIN 40 MG/0.4 ML SYRINGE SUBCUT SCH (08:35)
--- NOTE | 2017-01-27 11:59 | Hospitalist Progress Note ---
Assessment and Plan - Time spent with patient Time spent with patient: Greater than 30 minutes (1) Urinary tract infection Status: Acute Assessment and plan: Continue antibiotics. Current Visit: Yes Qualifiers: Urinary tract infection type: site unspecified Hematuria presence: without hematuria Qualified Code(s): N39.0 - Urinary tract infection, site not specified (2) Prostatitis Status: Acute Assessment and plan: Urology is on board. Current Visit: Yes Qualifiers: Prostatitis type: acute Qualified Code(s): N41.0 - Acute prostatitis (3) Acute epididymitis Status: Acute Assessment and plan: Continue current treatment. Current Visit: Yes Hospitalist: Subjective Interval history: Complains of continued pain in his scrotum. No overnight events. Exam - Constitutional Vitals: Period Temp Pulse Resp BP Sys/Mccray Pulse Ox Last 24 Hr 97.2 F-98.9 F 69-89 18-20 126-148/68-89 93-99 General appearance: no acute distress - Head Head exam: Present: normocephalic, atraumatic - Eye Eye exam: Present: EOMI Pupils: Present: WERNER - ENT ENT exam: Present: normal exam - Neck Neck exam: Present: normal inspection - Respiratory Respiratory exam: Present: clear to auscultation bilaterally. Absent: rhonchi, wheezes - Cardiovascular Cardiovascular exam: Present: regular rate and rhythm. Absent: gallop, rubs, systolic murmur - GI/Abdominal GI/Abdominal exam: Present: normal bowel sounds, soft. Absent: distended, firm , guarding, tenderness, rebound - Extremities Exam Extremities exam: Present: normal inspection, other (Swollen scrotum). Absent: calf tenderness, edema Results - Labs CBC & BMP: 01/27/17 04:00 01/27/17 04:00 Lab Results: I have reviewed the past 24 hour labs
[2017-01-27] MEDS: BISACODYL 5 MG TABLET PO PRN (17:49)
[2017-01-27] MEDS: LEVOFLOXACIN INJ 750 MG in PREMIX 1 EACH IV SCH ×2 (23:52)
[2017-01-28] MEDS: MEROPENEM 1,000 MG in SODIUM CHLORIDE 0.9% 100 ML IV SCH ×2 (02:20→09:11)
[2017-01-28] MEDS: VANCOMYCIN INJ 2,500 MG in SODIUM CHLORIDE 0.9% 500 ML IV SCH (02:21)
[2017-01-28] MEDS: GABAPENTIN 600 MG TABLET PO SCH ×3 (04:16→20:26)
--- NOTE | 2017-01-28 08:04 | Urology Progress Note ---
Urology - PN: Subj Interval history: The patient is afebrile but still has a slightly elevated white count. The patient is having trouble with self-catheterization because of his obesity and his is going to come to the hospital today so the nurses can instruct her. Intermittent catheters have been ordered to be sent to his house. The patient 's urine cultures negative as was his urine culture prior to admission. He has one blood culture that is positive for gram-negative rods and I would recommend that we use this culture to select antibiotic therapy for epididymitis post discharge. Whenever the patient can do self-catheterization and we have the final blood blood culture report is okay with me to discharge the patient Exam - Constitutional Vitals: Period Temp Pulse Resp BP Sys/Mccray Pulse Ox Last 24 Hr 7.9 F-98.9 F 74-95 17-20 133-144/73-90 92-100 Results - Labs CBC & BMP: 01/27/17 04:00 01/27/17 04:00
[2017-01-28] MEDS: ENOXAPARIN 40 MG/0.4 ML SYRINGE SUBCUT SCH (09:01)
[2017-01-28] MEDS: PANTOPRAZOLE 40 MG TABLET PO SCH (09:01)
[2017-01-28] MEDS: TAMSULOSIN 0.4 MG CAPSULE PO SCH ×2 (09:01→20:21)
[2017-01-28] MEDS: FINASTERIDE 5 MG TABLET PO SCH (09:01)
[2017-01-28] MEDS ORDERED: CELECOXIB 200 MG CAPSULE PO PRN (17:45)
[2017-01-28] MEDS ORDERED: traMADol 50 MG TABLET PO PRN (17:45)
[2017-01-28] MEDS ORDERED: KETOROLAC 30 MG/1 ML VIAL IV PRN (17:48)
--- NOTE | 2017-01-28 17:52 | Hospitalist Progress Note ---
Assessment and Plan (1) Sepsis Status: Resolved Assessment and plan: Sepsis secondary to urinary tract infection and prostatitis related to urinary retention. I suspect gram-negative bacteremia given his degree of lactic acidosis and hypotension Final cultures are pending. The patient has improved since admission with IV fluids and IV antibiotics. Current Visit: Yes Qualifiers: Sepsis type: sepsis due to unspecified organism Qualified Code(s): A41.9 - Sepsis, unspecified organism (2) Urinary tract infection Status: Acute Assessment and plan: Urine culture and blood culture obtained. Patient started on Merrem and Levaquin. Seen in consultation by urology. Change antibiotics to oral Cipro. Follow final cultures. Current Visit: Yes Qualifiers: Urinary tract infection type: site unspecified Hematuria presence: without hematuria Qualified Code(s): N39.0 - Urinary tract infection, site not specified (3) NAJMA (acute kidney injury) Status: Resolved Current Visit: Yes (4) Lactic acidosis Status: Resolved Current Visit: Yes (5) Prostatitis Status: Acute Assessment and plan: Continue antibiotics Current Visit: Yes Qualifiers: Prostatitis type: acute Qualified Code(s): N41.0 - Acute prostatitis (6) Urinary retention Status: Chronic Assessment and plan: The patient is unable to perform self catheterization within and out caths. He has significantly high residuals of close to 1000 cc with each catheterization. He had his is elected for indwelling Caruso catheter placement with clamping and unclamping to simulate bladder training at home. He will follow- up as an outpatient with urology. Current Visit: Yes (7) Chronic back pain Status: Chronic Current Visit: Yes Qualifiers: Back pain location: low back pain (8) Neuropathy Status: Chronic Current Visit: Yes (9) Hypertension Status: Chronic Current Visit: Yes Qualifiers: Hypertension type: essential hypertension Qualified Code(s): I10 - Essential (primary) hypertension Hospitalist: Subjective Interval history: Patient seen and examined. No acute events overnight. Case discussed with nursing staff. Labs reviewed. Case D/W patient and at the bedside. They expressed a fear and discomfort with being discharged home today. The patient is unable to self cath himself and his works a full-time job. I do not think self in and out cathing at home will be a good option for this patient who is morbidly obese and is unable to see his penis. They have elected for an indwelling Caruso catheter placement with bladder training and clamping and unclamping education. They plan to follow-up with urology after this hospitalization. Antibiotics will be switched to oral route. Final cultures to be resulted tomorrow. The patient had gram negative rods on preliminary cultures. He no longer has a fever but his white count has persisted at 14,000. Exam - Constitutional Vitals: Period Temp Pulse Resp BP Sys/Mccray Pulse Ox Last 24 Hr 7.9 F-98.9 F 80-95 18-20 133-147/73-93 92-95 Exam: Constitutional System: No distress. No tremulousness. Head: Normocephalic, atraumatic. Ears, Nose and Throat System: No pain or tenderness. No epistaxis or discharge Eyes System: Pupils equal, round, and reactive. Extraocular muscles intact. Neck: Supple, without adenopathy, No jugular venous distention. No thyromegaly, neck mass, or prior surgery apparent. Respiratory System: Chest clear to auscultation. Cardiovascular System: Heart with regular rate and rhythm. No murmur. GI System: Abdomen soft, nontender. Normo active bowel sounds present. Musculoskeletal System: limbs with no pedal edema. Full distal pulses. Neurological System: No discernable sensory deficit. No aphasia Psychiatric System: Conversation is rational Genitourinary: Swollen scrotum and firm left epididymis with swelling and pain. Results - Labs CBC & BMP: 01/27/17 04:00 01/27/17 04:00 Lab Results: I have reviewed the past 24 hour labs Specialty Discharge - Follow Up or Referrals Follow up with: Storm Cleveland MD [Physician] - (Follow up in 3 weeks)
[2017-01-28] MEDS ORDERED: GABAPENTIN 300 MG CAPSULE PO SCH (18:00)
[2017-01-28] MEDS: FUROSEMIDE 40 MG/4 ML VIAL IV SCH (18:09)
[2017-01-28] MEDS: CIPROFLOXACIN 500 MG TABLET PO SCH (20:21)
[2017-01-28] MEDS: METHOCARBAMOL 750 MG TABLET PO SCH (20:21)
[2017-01-28] MEDS: POTASSIUM CHLORIDE 20 MEQ TABLET PO SCH (20:21)
[2017-01-28] MEDS: OMEGA 3 ACID ETHYL ESTERS 1 GM CAPSULE PO SCH (20:21)
[2017-01-29] MEDS: GABAPENTIN 600 MG TABLET PO SCH ×2 (05:28→12:57)
--- NOTE | 2017-01-29 07:41 | Urology Progress Note ---
Urology - PN: Subj Interval history: The patient has a Caruso catheter in now and wants to go home with the Caruso rather than intermittent catheterization. I think his will be able to help him with intermittent catheterization. Catheters have been ordered and should be at his home. Patient will call me when he wants to remove the Caruso and go back to intermittent catheterization and I will have a home health nurse go out and take his Caruso out and help him with intermittent catheterization. He reports the testicular swelling has decreased. The patient has a positive blood culture with gram-negative rods and this final culture report is still pending. I would recommend that we use this report to guide antibiotic therapy as this was the only culture that was positive. It is okay with me to discharge the patient as needed Exam - Constitutional Vitals: Period Temp Pulse Resp BP Sys/Mccray Pulse Ox Last 24 Hr 97.0 F-99.1 F 75-98 20-20 110-147/55-93 91-94 Results - Labs CBC & BMP: 01/27/17 04:00 01/27/17 04:00 Specialty Discharge - Follow Up or Referrals Follow up with: Storm Cleveland MD [Physician] - (Follow up in 3 weeks)
[2017-01-29] MEDS ORDERED: LISINOPRIL/HCTZ 20-12.5 MG TABLET PO SCH (09:00)
[2017-01-29] MEDS ORDERED: FINASTERIDE 5 MG TABLET PO SCH (09:00)
[2017-01-29] MEDS ORDERED: ATORVASTATIN 40 MG TABLET PO SCH (09:00)
[2017-01-29] MEDS: ENOXAPARIN 40 MG/0.4 ML SYRINGE SUBCUT SCH (09:40)
[2017-01-29] MEDS: POTASSIUM CHLORIDE 20 MEQ TABLET PO SCH (09:41)
[2017-01-29] MEDS: FUROSEMIDE 40 MG/4 ML VIAL IV SCH (09:41)
[2017-01-29] MEDS: CIPROFLOXACIN 500 MG TABLET PO SCH (09:41)
[2017-01-29] MEDS: FINASTERIDE 5 MG TABLET PO SCH (09:41)
[2017-01-29] MEDS: TAMSULOSIN 0.4 MG CAPSULE PO SCH (09:41)
[2017-01-29] MEDS: METHOCARBAMOL 750 MG TABLET PO SCH (09:42)
[2017-01-29] MEDS: PANTOPRAZOLE 40 MG TABLET PO SCH (09:42)
[2017-01-29] MEDS: OMEGA 3 ACID ETHYL ESTERS 1 GM CAPSULE PO SCH (09:42)
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
[2017-01-29 14:01] VITALS: BP 128/78
== END 2017-01-29 15:12 | disposition home or self-care (01) | DRG 871 ==
LOC: N.ED 22:17 → N.EDINP 23:52 → SUATTDRO 23:52 → N.CC 01-23 01:20 → N.2E 01-24 12:44
PROVIDERS: ADMIT Internal Medicine; ATTEND Family Medicine

== ENCOUNTER 2017-02-16 19:15 | Inpatient (IN) ==
[2017-02-16] MEDS ORDERED: ONDANSETRON 4 MG/2 ML VIAL IV STA (19:37)
[2017-02-16] MEDS ORDERED: SODIUM CHLORIDE 0.9% 1,000 ML IV STA (19:37)
[2017-02-16] MEDS ORDERED: LEVOFLOXACIN INJ 750 MG in PREMIX 1 EACH IV STA (19:40)
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
[2017-02-16 20:11] LABS: Basophils # 0.1 10*3/uL (0.0-0.2); Basophils % 0.6 % (0.0-0.8); Eosinophils # 0.5 10*3/uL (0.0-0.87); Eosinophils % 3.2 % (0.00-10.9); Hematocrit 32.7 VOL% (42.0-52.0); Hemoglobin 10.1 GM/DL (14.0-18.0); Immature Granulocytes % 0.6 %; Immature Granulocytes Absolute 0.09 #; Lymphocytes # 1.5 10*3/uL (1.4-4.0); Lymphocytes % 9.5 % (21.2-54.2); Mean Corpuscular HGB Conc 30.9 GM/DL (32-36); Mean Corpuscular Hemoglobin 24 PG (27-34); Mean Platelet Volume 11.3 FL (9.6-12.0); Monocytes # 1.2 10*3/uL (0.11-0.8); Monocytes % 7.5 % (1.7-12.7); Neutrophils # 12.6 10*3/uL (1.4-7.4); Neutrophils % 78.6 % (38.7-73.9); Platelet Count 385 T/CUMM (130-400); Red Blood Count 4.14 MC/CUMM (3.8-5.5); Red Cell Distribution Width 13.6 % (9.3-17.3); White Blood Count 16.1 T/CUMM (4-12)
--- NOTE | 2017-02-16 20:14 | EKG Report ---
Stationary ECG Study [facility] ER Test Date: 02/16/2017 8:13:11 PM Pat Name: ALEJANDRO MENA Department: Room: Gender: M [employer]: : 1960 Requested by: Jeferson Valiente Order Number: [id number] Reading MD: MEDHAT MCCLURE Intervals [place] Rate: 92 P: 41 MD: 177 QRS: 7 QRSD: 114 T: 14 QT: 347 QTc: 396 Interpretive Statements SINUS RHYTHM INFERIOR MYOCARDIAL INFARCTION, PROBABLY OLD Electronically Signed On 02-17-17 18:16:26 CDT by MEDHAT MCCLURE [email or web address]
[2017-02-16 20:19] LABS: Apearance,Urine CLOUDY (Clear); Bacteria,Urine Few /HPF (Few); Bilirubin,Urine Small mg/dL (Negative); Blood, Urine Large mg/dL (Negative); Glucose,Urine (UA) Negative (Negative); Ketones,Urine Negative (Negative); Nitrite,Urine Negative (Negative); Protein,Urine 30 MG/DL; RBC,Urine 175 /HPF (0-4); Urine Color Yellow (Yellow); Urine Specific Gravity 1.028 (1.001-1.035); WBC,Urine 53 /HPF (0-6)
[2017-02-16 20:29] LABS: Alanine Aminotransferase 28 U/L (16-61); Alkaline Phosphatase 75 U/L (45-117); Amylase 19 U/L (25-115); Aspartate Amino Transferase 14 U/L (0-37); Blood Urea Nitrogen 17 MG/DL (7-18); Calcium 8.7 MG/DL (8.5-10.1); Glucose 108 MG/DL (74-106); Osmolality,Calculated 279.5 MOS/KG (273-304); Potassium 4.4 MMOL/L (3.5-5.1); Sodium 139 MMOL/L (136-145); Troponin I Only < 0.015 NG/ML (0.00-0.045)
[2017-02-16 20:57] LABS: Lactic Acid 0.9 MMOL/L (0.4-2.0)
[2017-02-16] MEDS ORDERED: ONDANSETRON 4 MG/2 ML VIAL ONE (21:08)
[2017-02-16] MEDS ORDERED: LEVOFLOXACIN INJ 150 ML IV ONE (21:08)
[2017-02-16] MEDS ORDERED: DEXTROSE 50% 25 GM/50 ML VIAL IV PRN (21:13)
[2017-02-16] MEDS ORDERED: ONDANSETRON 4 MG/2 ML VIAL IV PRN (21:13)
[2017-02-16] MEDS ORDERED: ACETAMINOPHEN 325 MG TABLET PO PRN (21:13)
[2017-02-16] MEDS ORDERED: GLUCAGON 1 MG VIAL IM PRN (21:13)
[2017-02-16] MEDS ORDERED: ENOXAPARIN 40 MG/0.4 ML SYRINGE SUBCUT SCH (21:30)
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
[2017-02-16] MEDS: SODIUM CHLORIDE 0.9% 1,000 ML IV SCH (23:33)
[2017-02-17] MEDS ORDERED: MORPHINE 2 MG/1 ML SYRINGE IV PRN (00:27)
[2017-02-17] MEDS ORDERED: traMADol 50 MG TABLET PO PRN (04:25)
[2017-02-17] MEDS: GABAPENTIN 600 MG TABLET PO SCH ×4 (04:45→21:39)
[2017-02-17 06:42] LABS: Basophils # 0.1 10*3/uL (0.0-0.2); Basophils % 0.6 % (0.0-0.8); Eosinophils # 0.5 10*3/uL (0.0-0.87); Eosinophils % 3.7 % (0.00-10.9); Hematocrit 29.3 VOL% (42.0-52.0); Hemoglobin 8.7 GM/DL (14.0-18.0); Immature Granulocytes % 0.4 %; Immature Granulocytes Absolute 0.06 #; Lymphocytes # 1.7 10*3/uL (1.4-4.0); Lymphocytes % 12.6 % (21.2-54.2); Mean Corpuscular HGB Conc 29.7 GM/DL (32-36); Mean Corpuscular Hemoglobin 24 PG (27-34); Mean Corpuscular Volume 80.9 FL (87-102); Mean Platelet Volume 11.5 FL (9.6-12.0); Monocytes # 1.2 10*3/uL (0.11-0.8); Neutrophils # 9.8 10*3/uL (1.4-7.4); Neutrophils % 73.7 % (38.7-73.9); Platelet Count 340 T/CUMM (130-400); Red Blood Count 3.62 MC/CUMM (3.8-5.5); Red Cell Distribution Width 13.6 % (9.3-17.3); White Blood Count 13.3 T/CUMM (4-12)
[2017-02-17 07:25] LABS: Albumin 2.4 G/DL (3.4-5.0); Bilirubin,Total 0.9 MG/DL (0.2-1.0); Calcium 8.2 MG/DL (8.5-10.1); Osmolality,Calculated 279.4 MOS/KG (273-304); Potassium 4.3 MMOL/L (3.5-5.1); Total Protein 5.8 G/DL (6.4-8.3)
[2017-02-17] MEDS ORDERED: INSULIN LISPRO 100 UNIT/ML SUBCUT SCH (07:30)
--- NOTE | 2017-02-17 08:04 | Urology Consultation ---
History of Present Illness - Consult Narrative History of present illness: Mr. Gloria is a 56 year old male The patient is known to me. He has a past history of BPH and urinary retention and he has been at home on Flomax twice a day and Proscar. Catheters were delivered to his house in a home health nurse was supposed to go to the patient' s home remove the Caruso and instructed on intermittent catheterization but he says that she never arrived he has had a Caruso catheter and is now developed a left epididymitis. The Caruso is out and he continues medical management and will start intermittent catheterization patient needs a urine culture and continue present antibiotics until this resolves his back. He does have an elevated white count CC: Domitila Bernardo MD - Home Medications and Allergies Home Medications: Home Medications Medication Instructions Recorded Confirmed Type Acetaminophen Tab [Tylenol Tab] 500 mg PO Q6HR PRN 01/23/17 02/16/17 History Atorvastatin [Lipitor] 40 mg PO DAILY 01/23/17 02/16/17 History Celecoxib [Celebrex] 200 mg PO DAILY PRN 01/23/17 02/16/17 History Furosemide 20 mg PO DAILY 01/23/17 02/16/17 History Lisinopril/Hydrochlorothiazide 1 each PO DAILY 01/23/17 02/16/17 History [Lisinopril-Hctz 20-12.5 mg Tab] Methocarbamol Tab [Robaxin Tab] 750 mg PO TID 01/23/17 02/16/17 History [place] 3 Acid Ethyl Esters [Lovaza] 2 gm PO BID 01/23/17 02/16/17 History Tramadol HCl [Tramadol Tab] 1 tablet PO TID PRN 01/23/17 02/16/17 History Finasteride [Proscar] 5 mg PO DAILY tablet 01/29/17 02/16/17 Rx Gabapentin Cap/Tab [Neurontin 600 mg PO Q8H tablet 01/29/17 02/16/17 Rx Cap/Tab] Tamsulosin [Flomax] 0.4 mg PO BID capsule 01/29/17 02/16/17 Rx Allergies/Adverse Reactions: Allergies Allergy/AdvReac Type Severity Reaction Status Date / Time No Known Allergies Allergy Verified 07/24/15 08:32 Exam - Constitutional Vitals: Period Temp Pulse Resp BP Sys/Mccray Pulse Ox Last 24 Hr 98.4 F-99.7 F 77-90 18-20 132-150/84-94 94-94 Results - Labs CBC & BMP: 02/17/17 05:44 02/17/17 05:44
[2017-02-17] MEDS: TAMSULOSIN 0.4 MG CAPSULE PO SCH ×2 (08:54→21:39)
[2017-02-17] MEDS: OMEGA 3 ACID ETHYL ESTERS 1 GM CAPSULE PO SCH ×2 (08:54→21:38)
[2017-02-17] MEDS: SODIUM CHLORIDE 0.9% 1,000 ML IV SCH ×2 (08:54→17:22)
[2017-02-17] MEDS: FINASTERIDE 5 MG TABLET PO SCH (08:54)
[2017-02-17] MEDS: METHOCARBAMOL 750 MG TABLET PO SCH ×3 (08:54→21:39)
[2017-02-17] MEDS: ATORVASTATIN 40 MG TABLET PO SCH (08:54)
[2017-02-17] MEDS: metroNIDAZOLE 500 MG TABLET PO SCH ×3 (08:54→21:38)
--- NOTE | 2017-02-17 12:14 | Hospitalist Progress Note ---
Assessment and Plan (1) Antibiotic-associated diarrhea Status: Acute Assessment and plan: C. difficile-negative .This is slowly resolving Will get x3 of the test Current Visit: Yes (2) Urinary tract infection Status: Acute Assessment and plan: UC-negative so far. Urology wants him to do In and Out cath continue current management follow BC Current Visit: No Qualifiers: Urinary tract infection type: site unspecified Hematuria presence: without hematuria Qualified Code(s): N39.0 - Urinary tract infection, site not specified (3) Urinary retention Status: Chronic Assessment and plan: due to BPH -Urology is following. In and Out catheter Current Visit: No (4) Chronic back pain Status: Chronic Assessment and plan: on meds. will consult PT and pain management Current Visit: No Qualifiers: Back pain location: low back pain (5) Neuropathy Status: Chronic Assessment and plan: continue with meds and PT Current Visit: No Hospitalist: Subjective Interval history: Patient seen, he looked diaphoretic, complained of some chills but no fever.His last episode of diarrhea was around 2am. Stool for C. difficile was negative.He states he didnt have a good night and was hurting all over. Exam - Constitutional Vitals: Period Temp Pulse Resp BP Sys/Mccray Pulse Ox Last 24 Hr 97.6 F-99.7 F 77-90 18-20 117-150/70-94 94-99 General appearance: no acute distress, other (sweaty) - Respiratory Respiratory exam: Present: clear to auscultation bilaterally - Cardiovascular Cardiovascular exam: Present: regular rate and rhythm - GI/Abdominal GI/Abdominal exam: Present: normal bowel sounds - Extremities Exam Extremities exam: Present: normal inspection Results - Labs CBC & BMP: 02/17/17 05:44 02/17/17 05:44 Lab Results: I have reviewed the past 24 hour labs
[2017-02-17] MEDS ORDERED: ENOXAPARIN 40 MG/0.4 ML SYRINGE SUBCUT SCH (12:30)
[2017-02-17] MEDS: LEVOFLOXACIN INJ 750 MG in PREMIX 1 EACH IV SCH (21:39)
[2017-02-18] MEDS: GABAPENTIN 600 MG TABLET PO SCH ×4 (05:46→19:33)
[2017-02-18] MEDS: SODIUM CHLORIDE 0.9% 1,000 ML IV SCH ×3 (05:50→23:05)
[2017-02-18 06:06] LABS: Basophils # 0.1 10*3/uL (0.0-0.2); Basophils % 0.5 % (0.0-0.8); Eosinophils # 0.5 10*3/uL (0.0-0.87); Eosinophils % 3.3 % (0.00-10.9); Hematocrit 28.6 VOL% (42.0-52.0); Hemoglobin 8.7 GM/DL (14.0-18.0); Immature Granulocytes % 0.6 %; Immature Granulocytes Absolute 0.08 #; Lymphocytes # 1.7 10*3/uL (1.4-4.0); Lymphocytes % 11.9 % (21.2-54.2); Mean Corpuscular HGB Conc 30.4 GM/DL (32-36); Mean Corpuscular Hemoglobin 24 PG (27-34); Mean Corpuscular Volume 80.1 FL (87-102); Mean Platelet Volume 11.1 FL (9.6-12.0); Monocytes # 1.3 10*3/uL (0.11-0.8); Monocytes % 8.8 % (1.7-12.7); Neutrophils # 10.8 10*3/uL (1.4-7.4); Neutrophils % 74.9 % (38.7-73.9); Platelet Count 310 T/CUMM (130-400); Red Blood Count 3.57 MC/CUMM (3.8-5.5); Red Cell Distribution Width 13.6 % (9.3-17.3); White Blood Count 14.4 T/CUMM (4-12)
[2017-02-18 06:32] LABS: Calcium 8.1 MG/DL (8.5-10.1); Osmolality,Calculated 280.3 MOS/KG (273-304); Potassium 4.5 MMOL/L (3.5-5.1)
--- NOTE | 2017-02-18 07:44 | Urology Progress Note ---
Urology - PN: Subj Interval history: The patient is voiding very little on his own but I think you will be able to do self-catheterization and can go home without a Caruso. Preliminary urine culture is negative at 12 hours. Final report is pending. He has no fever but his white count is still elevated. Recommended we do a scrotal ultrasound and continue present antibiotics pending final urine culture report. Blood cultures are negative Exam - Constitutional Vitals: Period Temp Pulse Resp BP Sys/Mccray Pulse Ox Last 24 Hr 97.6 F-99.7 F 78-90 20-20 110-131/58-75 94-99 Results - Labs CBC & BMP: 02/18/17 05:16 02/18/17 05:16
[2017-02-18] MEDS: OMEGA 3 ACID ETHYL ESTERS 1 GM CAPSULE PO SCH ×2 (09:10→21:35)
[2017-02-18] MEDS: FINASTERIDE 5 MG TABLET PO SCH (09:10)
[2017-02-18] MEDS: METHOCARBAMOL 750 MG TABLET PO SCH ×3 (09:10→21:35)
[2017-02-18] MEDS: TAMSULOSIN 0.4 MG CAPSULE PO SCH ×2 (09:10→21:35)
[2017-02-18] MEDS: CELECOXIB 200 MG CAPSULE PO PRN (09:10)
[2017-02-18] MEDS: ATORVASTATIN 40 MG TABLET PO SCH (09:10)
[2017-02-18] MEDS: metroNIDAZOLE 500 MG TABLET PO SCH ×3 (09:10→21:35)
--- NOTE | 2017-02-18 09:12 | Ultrasound Report ---
Exam: US scrotum Date: 02/18/2017 7:44 AM Comparison: 01/25/2017 Indication: Testicular pain and swelling Technique:[Duplex scanning of the scrotum using B-mode/Craven scale imaging and Doppler spectral analysis and color flow. Ultrasound images were captured and stored.] Findings: The right testicle measures 45 x 21 x 21 mm. The left testicle measures 46 x 25 x 23 mm. Color flow documented in the testicles with no testicular masses. Right head of epididymis measures 8 x 11 mm. Left head of the epididymis measures 8 x 11 mm. Increased blood flow noted in the enlarged epididymis and left testicle. Smaller left hydrocele. Impression: Persistent left epididymo-orchitis. Smaller left hydrocele. PROCEDURE INTERPRETED AT [facility] DEPARTMENT OF RADIOLOGY Final Report Signed by: Dr. Angie Gutierrez
--- NOTE | 2017-02-18 19:08 | Hospitalist Progress Note ---
Assessment and Plan (1) Antibiotic-associated diarrhea Status: Acute Assessment and plan: C. difficile-negative .This is slowly resolving.Follow test GI to see Current Visit: Yes (2) Urinary tract infection Status: Acute Assessment and plan: UC and BC -negative so far. Urology wants him to do In and Out cath continue current management Current Visit: No Qualifiers: Urinary tract infection type: site unspecified Hematuria presence: without hematuria Qualified Code(s): N39.0 - Urinary tract infection, site not specified (3) Urinary retention Status: Chronic Assessment and plan: due to BPH -Urology is following. In and Out catheter Current Visit: No (4) Chronic back pain Status: Chronic Assessment and plan: on meds. will consult PT and pain management to see Xrays of the back Current Visit: No Qualifiers: Back pain location: low back pain (5) Neuropathy Status: Chronic Assessment and plan: continue with meds and PT Current Visit: No (6) Rectal bleed Status: Acute Assessment and plan: GI to see, continue to hold Lovenox CBC in am Current Visit: Yes Hospitalist: Subjective Interval history: Patient seen. He had an episode of rectal bleed this afternoon. Exam - Constitutional Vitals: Period Temp Pulse Resp BP Sys/Mccray Pulse Ox Last 24 Hr 97.9 F-99.7 F 77-90 18-20 102-123/58-73 94-98 General appearance: no acute distress - Head Head exam: Present: normal inspection - Respiratory Respiratory exam: Present: clear to auscultation bilaterally - Cardiovascular Cardiovascular exam: Present: regular rate and rhythm - GI/Abdominal GI/Abdominal exam: Present: normal bowel sounds - Extremities Exam Extremities exam: Present: normal inspection Results - Labs CBC & BMP: 02/18/17 05:16 02/18/17 05:16 Lab Results: I have reviewed the past 24 hour labs
--- NOTE | 2017-02-18 20:05 | XRay Report ---
XR lumbar spine AP/LAT Indication: Back pain Comparison: None available Findings: No fracture is seen. Vertebral body heights and alignment are normal. There is fusion from L3 through L5. Remaining disc space heights are well-maintained. No significant degenerative change is present. Impression: Lumbar fusion appears within normal limits. No other significant abnormality. PROCEDURE INTERPRETED AT [facility] DEPARTMENT OF RADIOLOGY Final Report Signed by: Dr. Melvin Santiago
[2017-02-18] MEDS: LEVOFLOXACIN INJ 750 MG in PREMIX 1 EACH IV SCH (21:32)
[2017-02-18] MEDS: ZALEPLON 5 MG CAPSULE PO PRN ×2 (22:42→23:41)
[2017-02-19] MEDS: GABAPENTIN 600 MG TABLET PO SCH ×4 (03:30→20:27)
[2017-02-19 05:52] LABS: Basophils # 0.1 10*3/uL (0.0-0.2); Basophils % 0.5 % (0.0-0.8); Eosinophils # 0.5 10*3/uL (0.0-0.87); Eosinophils % 3.4 % (0.00-10.9); Hematocrit 27.8 VOL% (42.0-52.0); Hemoglobin 8.4 GM/DL (14.0-18.0); Immature Granulocytes % 0.6 %; Immature Granulocytes Absolute 0.08 #; Lymphocytes # 1.4 10*3/uL (1.4-4.0); Lymphocytes % 9.4 % (21.2-54.2); Mean Corpuscular HGB Conc 30.2 GM/DL (32-36); Mean Corpuscular Hemoglobin 24 PG (27-34); Mean Corpuscular Volume 79.7 FL (87-102); Mean Platelet Volume 11.5 FL (9.6-12.0); Monocytes # 1.3 10*3/uL (0.11-0.8); Monocytes % 8.8 % (1.7-12.7); Neutrophils # 11.1 10*3/uL (1.4-7.4); Neutrophils % 77.3 % (38.7-73.9); Platelet Count 304 T/CUMM (130-400); Red Blood Count 3.49 MC/CUMM (3.8-5.5); Red Cell Distribution Width 13.6 % (9.3-17.3); White Blood Count 14.4 T/CUMM (4-12)
[2017-02-19 06:24] LABS: Osmolality,Calculated 280.3 MOS/KG (273-304); Potassium 3.9 MMOL/L (3.5-5.1)
--- NOTE | 2017-02-19 07:46 | Urology Progress Note ---
Urology - PN: Subj Interval history: The patient has a low-grade temperature and continues to have slightly elevated white count. Scrotal ultrasound shows epididymoorchitis with no evidence of abscess. His scrotal swelling seems to be worse today and his urine cultures negative. I am going to consult infectious disease for antibiotic selection in view of his negative culture Exam - Constitutional Vitals: Period Temp Pulse Resp BP Sys/Mccray Pulse Ox Last 24 Hr 98.2 F-100.4 F 77-100 18-20 102-131/58-81 94-97 Results - Labs CBC & BMP: 02/19/17 05:04 02/19/17 05:04
[2017-02-19] MEDS: FINASTERIDE 5 MG TABLET PO SCH (09:11)
[2017-02-19] MEDS: TAMSULOSIN 0.4 MG CAPSULE PO SCH ×2 (09:11→20:24)
[2017-02-19] MEDS: METHOCARBAMOL 750 MG TABLET PO SCH ×3 (09:11→20:24)
[2017-02-19] MEDS: OMEGA 3 ACID ETHYL ESTERS 1 GM CAPSULE PO SCH ×2 (09:11→20:24)
[2017-02-19] MEDS: ATORVASTATIN 40 MG TABLET PO SCH (09:11)
[2017-02-19] MEDS: metroNIDAZOLE 500 MG TABLET PO SCH (09:11)
[2017-02-19] MEDS: CELECOXIB 200 MG CAPSULE PO PRN (09:11)
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
[2017-02-19] MEDS: SODIUM CHLORIDE 0.9% 1,000 ML IV SCH ×2 (10:14→19:15)
[2017-02-19] MEDS: PIPERACILLIN/TAZOBACTAM 3,375 MG in SODIUM CHLORIDE 0.9% 100 ML IV SCH ×2 (10:15→18:31)
--- NOTE | 2017-02-19 12:07 | Pain Management Progress Note ---
Pain - Subjective Interval history: 56 yo admitted with UTI, chronic low back pain. Developed GI bleed 02/18/17. Has not seen Dr Galindo since 06/2015. Meds: Ultram Neurontin Robaxin Prescriptions written by Teresa Armando SUPERVISOR SUNGLASSE[employer]arun Winters MS. Discussed with Sun Larry DIRECTOR OF RETAIL ANALYTICS with [facility]. Recommend for this acute setting to start Duragesic 12ug/hr, change patch every [address] Galindo will see patient Thursday 02/22. Exam - Constitutional Vitals: Period Temp Pulse Resp BP Sys/Mccray Pulse Ox Last 24 Hr 98.2 F-100.4 F 75-100 18-20 106-131/68-81 92-97 Results - Labs CBC & BMP: 02/19/17 05:04 02/19/17 05:04
--- NOTE | 2017-02-19 13:05 | Hospitalist Progress Note ---
Assessment and Plan (1) Antibiotic-associated diarrhea Status: Acute Assessment and plan: C. difficile-negative . Diarrhea is resolving.Continue Flagyl Current Visit: Yes (2) Urinary tract infection Status: Acute Assessment and plan: UC and BC -negative so far. Urology wants him to do In and Out cath continue current management Current Visit: No Qualifiers: Urinary tract infection type: site unspecified Hematuria presence: without hematuria Qualified Code(s): N39.0 - Urinary tract infection, site not specified (3) Urinary retention Status: Chronic Assessment and plan: due to BPH -Urology is following. In and Out catheter Current Visit: No (4) Chronic back pain Status: Chronic Assessment and plan: Xrays showed lumbar fusion with no acute changes. will continue with PT and follow pain management's recommendations Current Visit: No Qualifiers: Back pain location: low back pain (5) Neuropathy Status: Chronic Assessment and plan: continue with meds and PT Current Visit: No (6) Rectal bleed Status: Acute Assessment and plan: GI to see, continue to hold Lovenox. Monitor CBC, will transfuse with Hb less than 8.0 CBC in am Current Visit: Yes (7) Acute epididymo-orchitis Status: Acute Assessment and plan: Patient spiked a temp of 100.4 this am Scrotal USS showed persistent left epididymo-orchitis and smaller left hydrocoele. Plan Switch IV Levaquin to Zosyn Follow repeat cultures Current Visit: Yes Hospitalist: Subjective Interval history: Patient seen this am. He states he had a horrible night, he couldnt sleep all night. He was given some pills that didnt help but states that trazodone has helped in the past.Xray of his lumbar spine showed fusion with no acute changes. Scrotal USS showed persistent left epididymo-orchitis and smaller left hydrocoele.He spiked a temp of 100.4 this am, his Levaquin has been switched to Zosyn and blood has been sent again for cultures. Exam - Constitutional Vitals: Period Temp Pulse Resp BP Sys/Mccray Pulse Ox Last 24 Hr 98.2 F-100.4 F 75-100 18-20 107-131/68-81 92-97 General appearance: no acute distress - Head Head exam: Present: normal inspection - Respiratory Respiratory exam: Present: clear to auscultation bilaterally - Cardiovascular Cardiovascular exam: Present: regular rate and rhythm - GI/Abdominal GI/Abdominal exam: Present: normal bowel sounds, other (swollen and red scrotom) - Extremities Exam Extremities exam: Present: normal inspection Results - Labs CBC & BMP: 02/19/17 05:04 02/19/17 05:04 Lab Results: I have reviewed the past 24 hour labs
[2017-02-19] MEDS ORDERED: POLYETHYLENE GLYCOL POWDER 255 GM BOTTLE PO ONE (18:00)
[2017-02-20] MEDS: ACETAMINOPHEN 500 MG TABLET PO PRN
[2017-02-20] MEDS: PIPERACILLIN/TAZOBACTAM 3,375 MG in SODIUM CHLORIDE 0.9% 100 ML IV SCH ×3 (01:11→18:28)
[2017-02-20] MEDS ORDERED: MAGNESIUM CITRATE 300 ML BOTTLE PO ONE ×3 (02:30→06:11)
[2017-02-20] MEDS: GABAPENTIN 600 MG TABLET PO SCH ×3 (03:51→20:55)
[2017-02-20 07:42] LABS: Basophils # 0.1 10*3/uL (0.0-0.2); Basophils % 0.4 % (0.0-0.8); Eosinophils # 0.6 10*3/uL (0.0-0.87); Hematocrit 30.5 VOL% (42.0-52.0); Hemoglobin 9.4 GM/DL (14.0-18.0); Immature Granulocytes % 0.6 %; Immature Granulocytes Absolute 0.12 #; Lymphocytes # 1.3 10*3/uL (1.4-4.0); Lymphocytes % 6.8 % (21.2-54.2); Mean Corpuscular HGB Conc 30.8 GM/DL (32-36); Mean Corpuscular Hemoglobin 24 PG (27-34); Mean Platelet Volume 11.7 FL (9.6-12.0); Monocytes # 1.4 10*3/uL (0.11-0.8); Monocytes % 7.6 % (1.7-12.7); Neutrophils # 15.3 10*3/uL (1.4-7.4); Neutrophils % 81.6 % (38.7-73.9); Platelet Count 363 T/CUMM (130-400); Red Blood Count 3.91 MC/CUMM (3.8-5.5); Red Cell Distribution Width 13.7 % (9.3-17.3); White Blood Count 18.8 T/CUMM (4-12)
--- NOTE | 2017-02-20 07:50 | Urology Progress Note ---
Urology - PN: Subj Interval history: The patient still has low-grade temperature of 100. His white count is elevated. Scrotal swelling is about the same. Infectious disease consultation is pending for antibiotic selection in view of negative cultures Exam - Constitutional Vitals: Period Temp Pulse Resp BP Sys/Mccray Pulse Ox Last 24 Hr 98.0 F-100.9 F 75-105 18-20 117-145/69-91 92-98 Results - Labs CBC & BMP: 02/20/17 06:40 02/19/17 05:04
[2017-02-20] MEDS: SODIUM CHLORIDE 0.9% 1,000 ML IV SCH (08:00)
[2017-02-20] MEDS: TAMSULOSIN 0.4 MG CAPSULE PO SCH ×2 (09:44→20:54)
[2017-02-20] MEDS: ATORVASTATIN 40 MG TABLET PO SCH (09:45)
[2017-02-20] MEDS: METHOCARBAMOL 750 MG TABLET PO SCH ×3 (09:45→20:55)
[2017-02-20] MEDS: OMEGA 3 ACID ETHYL ESTERS 1 GM CAPSULE PO SCH ×2 (09:45→20:55)
[2017-02-20] MEDS: FINASTERIDE 5 MG TABLET PO SCH (09:45)
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
--- NOTE | 2017-02-20 13:12 | Gastrointestinal Progress Note ---
Assessment and Plan (1) Rectal bleed Status: Acute Assessment and plan: 02/20-colonoscopy to be rescheduled until Thursday due to poor prep. Continue a clear liquid diet throughout the weekend and reprepped on Thursday. Plan an addendum to followed by Dr. Salinas. 02/19-sudden onset on yesterday of bright red rectal bleeding mixed in with dark red clots. Also rectal bleeding/oozing without bowel movement. Abdominal pain to epigastric region as well as lower quadrants. Hemoglobin trending down from 10.1 on admission to 8.4 nail. Stool studies negative for Clostridium difficile. Daily Celebrex use. Plan an addendum to followed by Dr. Salinas Current Visit: Yes Gastroenterology - PN: Subj Interval history: CC: Rectal bleed Patient seen awake and alert with at bedside. He is for colonoscopy this morning however his prep was incomplete. We will continue patient at this time a clear liquid diet and reprepped him on Thursday afternoon for colonoscopy on Thursday unless he begins to rebleed again. At that point will reevaluate. Patient's and nursing staff bedside and they have not seen any further bleeding during the colon prep. Hemoglobin is stable at 9.4. He has required no blood products at this time. Denies any abdominal pain however he is having some nausea. Abdomen is soft, nontender. ROS: Denies shortness of breath or chest pain Exam (Progress Note) - Constitutional Vitals: Period Temp Pulse Resp BP Sys/Mccray Pulse Ox Last 24 Hr 98.0 F-100.9 F 79-105 18-20 117-145/68-91 90-98 - Other Additional findings: General appearance: no acute distress, over weight - Head Head exam: Present: normal inspection, normocephalic - Eye Eye exam: Present: other (Lids and conjunctive are unremarkable). Absent: scleral icterus - ENT ENT exam: Present: normal exam, normal oropharynx - Neck Neck exam: Present: normal inspection - Respiratory Respiratory exam: Present: clear to auscultation bilaterally. Absent: rales, rhonchi, wheezes - Cardiovascular Cardiovascular exam: Present: regular rate and rhythm. Absent: diastolic murmur , JVD, systolic murmur - GI/Abdominal GI/Abdominal exam: Present: normal bowel sounds, soft. Absent: ascites, distended, mass, organomegaly, tenderness - Extremities Exam Extremities exam: Present: normal inspection, full ROM - Back Exam Back exam: Present: normal inspection - Neurological Exam Neurological exam: Present: alert, oriented X3 - Psychiatric Psychiatric exam: Present: normal affect, normal mood - Skin Skin exam: Present: normal color, warm, dry Results - Labs CBC & BMP: 02/20/17 06:40 02/19/17 05:04 Lab Results: I have reviewed the past 24 hour labs
--- NOTE | 2017-02-20 14:09 | Hospitalist Progress Note ---
Assessment and Plan (1) Urinary tract infection Status: Acute Assessment and plan: Patient is current on Zosyn and Levaquin. Because of fear of C. difficile the regular been driven by a quinolone which usually are very restive strains, I will discontinue the Levaquin. Azithromycin 500 mg IV once a day would be good placement especially since there is concern about a possible Campylobacter causing enteritis. Continue the Zosyn typical infection according causing epididymitis including Ureaplasma mycoplasma etc. will succumbed to azithromycin Current Visit: No Qualifiers: Urinary tract infection type: site unspecified Hematuria presence: without hematuria Qualified Code(s): N39.0 - Urinary tract infection, site not specified (2) Antibiotic-associated diarrhea Status: Acute Assessment and plan: Repeat C. difficile on the stool besides the other stool workup ordered. Current Visit: Yes (3) Acute epididymo-orchitis Status: Acute Assessment and plan: Give patient azithromycin as mentioned above. Outpatient clinic. May need to do an ultrasound of the scrotal contents if nothing changes. Current Visit: Yes Hospitalist: Subjective Interval history: Patient has been seen interviewed and examined and chart has been reviewed. Surface encounter with the patient a 56-year-old gentleman who controls in the hospital with what he described as septic shock secondary to urinary tract infection. He also did have a epididymal information at that time. Patient was sent home on ciprofloxacin because but this time with diarrhea what is thought to be antibiotic associated colitis. What I noticed that the first C. difficile was negative obtained yesterday. Plan to repeat it today. To check for white cells and stool. He is being prepped for colonoscopy looked at his stools that were left in the diaper that he seemed to be loose stools are not bloody. Will check for blood repeat his C. difficile on this and because he is having exquisite abdominal pain thing should also be looking for a typical infections including Campylobacter. Stool cultures also be sent to evaluate for typical pathogens. Given to me that he still did not look bloody. Exam - Constitutional Vitals: Period Temp Pulse Resp BP Sys/Mccray Pulse Ox Last 24 Hr 98.0 F-100.9 F 79-105 18-20 117-145/68-91 90-98 General appearance: normal weight - Head Head exam: Present: normocephalic, atraumatic - Eye Eye exam: Present: EOMI Pupils: Present: WERNER - ENT ENT exam: Present: normal exam - Neck Neck exam: Present: normal inspection - Respiratory Respiratory exam: Present: clear to auscultation bilaterally - Cardiovascular Cardiovascular exam: Present: regular rate and rhythm - GI/Abdominal GI/Abdominal exam: Present: other (Generalized tenderness in the pelvic this tenderness proceeded the diarrhea) - Extremities Exam Extremities exam: Present: full ROM - Neurological Exam Neurological exam: Present: alert, oriented X3, CN II-XII intact - Psychiatric Psychiatric exam: Present: normal affect - Skin Skin exam: Present: normal color, warm, dry Results - Labs CBC & BMP: 02/20/17 06:40 02/19/17 05:04 Lab Results: I have reviewed the past 24 hour labs (Noted leukocytosis may be secondary to the infection or colitis, electrolytes are optimal)
[2017-02-20 14:48] LABS: HIV Antigen/Antibody Result Nonreactive (Nonreactive)
[2017-02-20] MEDS: AZITHROMYCIN INJ 500 MG in SODIUM CHLORIDE 0.9% 250 ML IV SCH (14:57)
[2017-02-20 15:33] LABS: Apearance,Urine CLEAR (Clear); Bilirubin,Urine Negative (Negative); Blood, Urine Small mg/dL (Negative); Glucose,Urine (UA) Negative (Negative); Ketones,Urine Negative (Negative); Mucus,Urine Occasional /LPF (Occasional); Nitrite,Urine Negative (Negative); Protein,Urine Negative; RBC,Urine <1 /HPF (0-4); Urine Color Yellow (Yellow); Urine Specific Gravity 1.006 (1.001-1.035); Urine Urobilinogen < 2.0 EU/DL (0.2-1.0); WBC,Urine 2 /HPF (0-6)
--- NOTE | 2017-02-20 15:59 | Pain Management Progress Note ---
Pain - Subjective Interval history: Visited with patient. He stated that Duragesic not started. Stated [place] is relieving pain. Took once today. Recommend pain management remain as is unless he complains of pain 7/10, not relieved by po pain meds or pt needs to stop po pain meds due to GI condition. Exam - Constitutional Vitals: Period Temp Pulse Resp BP Sys/Mccray Pulse Ox Last 24 Hr 98.0 F-100.9 F 79-105 18-20 117-145/68-91 90-98 Results - Labs CBC & BMP: 02/20/17 06:40 02/19/17 05:04
[2017-02-21] MEDS: SODIUM CHLORIDE 0.9% 1,000 ML IV SCH ×2 (02:12→22:22)
[2017-02-21] MEDS: PIPERACILLIN/TAZOBACTAM 3,375 MG in SODIUM CHLORIDE 0.9% 100 ML IV SCH ×3 (02:13→18:31)
[2017-02-21] MEDS: OMEGA 3 ACID ETHYL ESTERS 1 GM CAPSULE PO SCH ×2 (08:39→21:24)
[2017-02-21] MEDS: METHOCARBAMOL 750 MG TABLET PO SCH ×3 (08:39→21:24)
[2017-02-21] MEDS: FINASTERIDE 5 MG TABLET PO SCH (08:39)
[2017-02-21] MEDS: GABAPENTIN 600 MG TABLET PO SCH ×3 (08:39→21:24)
[2017-02-21] MEDS: TAMSULOSIN 0.4 MG CAPSULE PO SCH ×2 (08:39→21:24)
[2017-02-21] MEDS: ATORVASTATIN 40 MG TABLET PO SCH (08:39)
--- NOTE | 2017-02-21 13:54 | Urology Progress Note ---
Urology - PN: Subj Interval history: The patient is afebrile but his white count is up. Examination testicles shows no improvement Exam - Constitutional Vitals: Period Temp Pulse Resp BP Sys/Mccray Pulse Ox Last 24 Hr 97.8 F-99.7 F 86-99 18-20 110-147/58-76 92-98 Results - Labs CBC & BMP: 02/20/17 06:40 02/19/17 05:04
[2017-02-21] MEDS: AZITHROMYCIN INJ 500 MG in SODIUM CHLORIDE 0.9% 250 ML IV SCH (15:13)
--- NOTE | 2017-02-21 15:43 | Hospitalist Progress Note ---
Assessment and Plan (1) Urinary tract infection Status: Acute Assessment and plan: Patient is current on Zosyn and Levaquin. Because of fear of C. difficile the regular been driven by a quinolone which usually are very restive strains, I will discontinue the Levaquin. Azithromycin 500 mg IV once a day would be good placement especially since there is concern about a possible Campylobacter causing enteritis. Continue the Zosyn typical infection according causing epididymitis including Ureaplasma mycoplasma etc. will succumbed to azithromycin Current Visit: No Qualifiers: Urinary tract infection type: site unspecified Hematuria presence: without hematuria Qualified Code(s): N39.0 - Urinary tract infection, site not specified (2) Antibiotic-associated diarrhea Status: Acute Assessment and plan: Repeat C. difficile on the stool besides the other stool workup ordered. Current Visit: Yes (3) Acute epididymo-orchitis Status: Acute Assessment and plan: Give patient azithromycin as mentioned above. Outpatient clinic. May need to do an ultrasound of the scrotal contents if nothing changes. Current Visit: Yes Hospitalist: Subjective Interval history: Patient seen interviewed and examined. I noticed that the patient is incontinent of stool. Those plans to screen his colon for colonoscopy yesterday. However does have problems of dyscontrol of his rectal sphincter is his back surgery and has had stool incontinence. The diarrhea that he has now since GoLYTELY making it worse. This is my second encounter with this gentleman who is a 56-year-old gentleman admitted to the hospital with what is described as septic shock due to urinary tract infection. Has a history of epididymitis and UTI a few weeks prior to this admission and was sent home with ciprofloxacin wanted to come back to the hospital to perfuse diarrhea was suspected to be secondary to C. difficile however C difficile antigens have been negative twice. He was planned for colonoscopy yesterday however he was not cleaned well so that was postponed. Patient still has significant abdominal pain that is diffuse in location. Stool culture was sent yesterday alongside C. difficile and WBC evaluation. He has scrotal swelling, and ultrasound was done on the unfortunately I cannot locate the report on that. I put him on azithromycin and continued P penicillin tazobactam yesterday. Exam - Constitutional Vitals: Period Temp Pulse Resp BP Sys/Mccray Pulse Ox Last 24 Hr 97.8 F-99.7 F 86-99 18-20 110-147/58-76 92-98 General appearance: over weight - Head Head exam: Present: normocephalic, atraumatic - Eye Eye exam: Present: EOMI Pupils: Present: WERNER - ENT ENT exam: Present: normal exam - Neck Neck exam: Present: normal inspection - Cardiovascular Cardiovascular exam: Present: regular rate and rhythm - GI/Abdominal GI/Abdominal exam: Present: normal bowel sounds, soft, other (Diffuse tendon) - Extremities Exam Extremities exam: Present: full ROM - Neurological Exam Neurological exam: Present: alert, oriented X3, CN II-XII intact - Skin Skin exam: Present: warm, dry (Scrotal edema) Results - Labs CBC & BMP: 02/20/17 06:40 02/19/17 05:04 Lab Results: I have reviewed the past 24 hour labs (Noted leukocytosis remains, no fevers)
[2017-02-22] MEDS: SODIUM CHLORIDE 0.9% 1,000 ML IV SCH ×3 (01:25→06:48)
[2017-02-22] MEDS: PIPERACILLIN/TAZOBACTAM 3,375 MG in SODIUM CHLORIDE 0.9% 100 ML IV SCH ×3 (01:25→18:51)
[2017-02-22] MEDS: GABAPENTIN 600 MG TABLET PO SCH ×3 (04:03→20:32)
[2017-02-22] MEDS: ACETAMINOPHEN 500 MG TABLET PO PRN (06:47)
[2017-02-22] MEDS: METHOCARBAMOL 750 MG TABLET PO SCH ×3 (08:20→20:32)
[2017-02-22] MEDS: OMEGA 3 ACID ETHYL ESTERS 1 GM CAPSULE PO SCH ×2 (08:20→20:42)
[2017-02-22] MEDS: TAMSULOSIN 0.4 MG CAPSULE PO SCH ×2 (08:20→20:33)
[2017-02-22] MEDS: ATORVASTATIN 40 MG TABLET PO SCH (08:20)
[2017-02-22] MEDS: FINASTERIDE 5 MG TABLET PO SCH (08:20)
--- NOTE | 2017-02-22 10:36 | Urology Progress Note ---
Urology - PN: Subj Interval history: The patient had no temperature elevation yesterday. Continue present IV antibiotics Exam - Constitutional Vitals: Period Temp Pulse Resp BP Sys/Mccray Pulse Ox Last 24 Hr 98.2 F-99.2 F 84-95 18-95 118-143/65-74 92-94 Results - Labs CBC & BMP: 02/20/17 06:40 02/19/17 05:04
[2017-02-22] MEDS ORDERED: BISACODYL 5 MG TABLET PO ONE (12:00)
[2017-02-22] MEDS ORDERED: POLYETHYLENE GLYCOL POWDER 255 GM BOTTLE PO ONE ×2 (12:00→18:00)
--- NOTE | 2017-02-22 12:20 | Hospitalist Progress Note ---
Assessment and Plan (1) Urinary tract infection Status: Acute Assessment and plan: Patient is current on Zosyn. I will repeat a urinalysis and urine culture. Patient has finished a course of azithromycin. C. difficile was negative; admission is concerned about use of quinolones invasive diarrhea and suspicion of C. difficile for that reason Levaquin was discontinued. Gentleman has a history of prostatitis most likely chronic prostatitis. May need to be on a typical coverage for long time (approximately 3 weeks). Have to invoke use of Levaquin again. If urine is positive this will have to be an antibiotic to be included. Did grow an anaerobic gram-negative dorothy on previous admission however the system could not pursue identifying that organism because it was "nonviable growth" it is possible that this was a fastidious gram-negative organism that he may need more treatment. Will therefore resume use of levofloxacin and follow the patient clinically. Current Visit: No Qualifiers: Urinary tract infection type: site unspecified Hematuria presence: without hematuria Qualified Code(s): N39.0 - Urinary tract infection, site not specified (2) Antibiotic-associated diarrhea Status: Acute Assessment and plan: C. difficile analysis is negative twice. Doubt this is C. difficile infection. Stool cultures also nondiagnostic there was an element of information to the still with presence of white cells. Is interesting that in the background of use of azithromycin the abdominal pain has subsided; Campylobacter will therefore be suggested. Specifically check for Campylobacter antigen on the stool. Current Visit: Yes (3) Acute epididymo-orchitis Status: Acute Assessment and plan: I spoke to the patient at length today. He was informed that on the previous admission did have acute prostatitis. With that there was swelling of the scrotum subsequently. Had been admitted to the hospital with septic shock he did grow a gram-negative dorothy that was identified as an anaerobic gram-negative dorothy. Cannot subsequently identify this organism fully because it was nonviable. I have elected to resume use of levofloxacin and follow the patient clinically. Is being planned for a colonoscopy tomorrow. And in the process status of the prostate may be assessed. Ultrasound of the scrotum done on 18 February shows persistent epididymoorchitis. Current Visit: Yes Hospitalist: Subjective Interval history: Patient has been seen interviewed and examined and chart has been reviewed. He states that he still having significant swelling in his scrotal area. Gentleman was admitted to the hospital this time with diarrhea he has been C. difficile negative. Because of the stool is negative for stool pathogen. Has a prior to admission on the late part of January with what looked like a lower infection" involving the prostate but then he developed swelling of the scrotal contents at that time. What I noticed now is mostly edema. On the previous admission he did grow an anaerobic gram-negative dorothy that could not be identified subsequently. Notation is that "there was nonviable growth." Exam - Constitutional Vitals: Period Temp Pulse Resp BP Sys/Mccray Pulse Ox Last 24 Hr 98.2 F-99.2 F 84-95 18-95 121-143/65-74 92-94 General appearance: over weight - Head Head exam: Present: normocephalic - Eye Eye exam: Present: EOMI Pupils: Present: WERNER - ENT ENT exam: Present: normal exam - Neck Neck exam: Present: normal inspection - Cardiovascular Cardiovascular exam: Present: regular rate and rhythm - GI/Abdominal GI/Abdominal exam: Present: normal bowel sounds, soft, other (There is tender to palpate) - Extremities Exam Extremities exam: Present: other (This could not be done well with the patient just lies down he says he cannot sit up due to pain in the prostate area) - Neurological Exam Neurological exam: Present: alert, oriented X3, CN II-XII intact - Psychiatric Psychiatric exam: Present: normal affect, normal mood - Skin Skin exam: Present: normal color, warm, dry, other (Scrotal edema) Results - Labs CBC & BMP: 02/20/17 06:40 02/19/17 05:04 Lab Results: I have reviewed the past 24 hour labs (Morning labs will be done tomorrow)
[2017-02-22] MEDS: LEVOFLOXACIN INJ 750 MG in PREMIX 1 EACH IV SCH (14:06)
[2017-02-22] MEDS ORDERED: MAGNESIUM CITRATE 300 ML BOTTLE PO ONE (22:30)
[2017-02-23] MEDS: PIPERACILLIN/TAZOBACTAM 3,375 MG in SODIUM CHLORIDE 0.9% 100 ML IV SCH ×3 (02:32→17:22)
[2017-02-23] MEDS: ACETAMINOPHEN 500 MG TABLET PO PRN (04:10)
[2017-02-23] MEDS: GABAPENTIN 600 MG TABLET PO SCH ×3 (05:02→21:21)
[2017-02-23] MEDS ORDERED: MAGNESIUM CITRATE 300 ML BOTTLE PO ONE ×2 (06:00→07:56)
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
[2017-02-23 06:22] LABS: Basophils # 0.1 10*3/uL (0.0-0.2); Basophils % 0.4 % (0.0-0.8); Eosinophils # 0.7 10*3/uL (0.0-0.87); Eosinophils % 4.4 % (0.00-10.9); Hematocrit 28.7 VOL% (42.0-52.0); Hemoglobin 8.6 GM/DL (14.0-18.0); Immature Granulocytes % 0.8 %; Immature Granulocytes Absolute 0.12 #; Lymphocytes # 1.5 10*3/uL (1.4-4.0); Lymphocytes % 9.6 % (21.2-54.2); Mean Corpuscular Hemoglobin 24 PG (27-34); Mean Corpuscular Volume 79.3 FL (87-102); Mean Platelet Volume 11.2 FL (9.6-12.0); Monocytes % 6.6 % (1.7-12.7); Neutrophils # 11.9 10*3/uL (1.4-7.4); Neutrophils % 78.2 % (38.7-73.9); Platelet Count 358 T/CUMM (130-400); Red Blood Count 3.62 MC/CUMM (3.8-5.5); Red Cell Distribution Width 13.8 % (9.3-17.3); White Blood Count 15.3 T/CUMM (4-12)
[2017-02-23 06:39] LABS: Calcium 8.2 MG/DL (8.5-10.1); Magnesium 2.5 MG/DL (1.8-2.4); Osmolality,Calculated 278.3 MOS/KG (273-304); Potassium 3.9 MMOL/L (3.5-5.1)
--- NOTE | 2017-02-23 07:32 | Urology Progress Note ---
Urology - PN: Subj Interval history: The patient is afebrile. His white count is down and the testicle feels less indurated Exam - Constitutional Vitals: Period Temp Pulse Resp BP Sys/Mccray Pulse Ox Last 24 Hr 98.4 F-98.6 F 83-104 18-21 114-140/65-87 92-97 Results - Labs CBC & BMP: 02/23/17 05:35 02/23/17 05:35
[2017-02-23] MEDS ORDERED: BISACODYL 5 MG TABLET PO ONE (07:35)
--- NOTE | 2017-02-23 09:49 | Gastrointestinal Progress Note ---
Assessment and Plan (1) Rectal bleed Status: Acute Assessment and plan: 02/23-Continued poor prep, reschedule colonoscopy for tomorrow. Continue prep today. No reports of bleeding. Hgb down at 8.6. Plan and addendum to follow by Dr Salinas. 02/20-colonoscopy to be rescheduled until Thursday due to poor prep. Continue a clear liquid diet throughout the weekend and reprepped on Thursday afternoon. Plan an addendum to followed by Dr. Salinas. 02/19-sudden onset on yesterday of bright red rectal bleeding mixed in with dark red clots. Also rectal bleeding/oozing without bowel movement. Abdominal pain to epigastric region as well as lower quadrants. Hemoglobin trending down from 10.1 on admission to 8.4 nail. Stool studies negative for Clostridium difficile. Daily Celebrex use. Plan an addendum to followed by Dr. Salinas Current Visit: Yes Gastroenterology - PN: Subj Interval history: CC: Rectal bleed, diarrhea Patient is seen awake, alert lying in bed. He was scheduled for colonoscopy today however he continues to have a poor prep with thick brown stools reported. He has had an additional prep ordered for this morning however at this time he has not completed this. He denies any further rectal bleeding with his prep on yesterday and this morning. Hemoglobin is noted to be down today at 8.6 and absence of overt bleeding. Abdomen is soft, nontender. ROS: Denies shortness of breath or chest pain Exam (Progress Note) - Constitutional Vitals: Period Temp Pulse Resp BP Sys/Mccray Pulse Ox Last 24 Hr 98.4 F-98.6 F 83-104 18-20 114-140/67-87 92-97 General appearance: normal weight, no acute distress - Head Head exam: Present: normal inspection, normocephalic - Eye Eye exam: Present: other (lids and conjunctiva unremarkable). Absent: scleral icterus - ENT ENT exam: Present: normal exam, normal oropharynx - Neck Neck exam: Present: normal inspection - Respiratory Respiratory exam: Present: clear to auscultation bilaterally. Absent: rales, rhonchi, wheezes - Cardiovascular Cardiovascular exam: Present: regular rate and rhythm. Absent: diastolic murmur , JVD, systolic murmur - GI/Abdominal GI/Abdominal exam: Present: normal bowel sounds, soft. Absent: ascites, distended, mass, organomegaly, tenderness - Extremities Exam Extremities exam: Present: normal inspection, full ROM - Back Exam Back exam: Present: normal inspection - Neurological Exam Neurological exam: Present: alert, oriented X3 - Psychiatric Psychiatric exam: Present: normal affect, normal mood - Skin Skin exam: Present: normal color, warm, dry Results - Labs CBC & BMP: 02/23/17 05:35 02/23/17 05:35 Lab Results: I have reviewed the past 24 hour labs
[2017-02-23] MEDS: TAMSULOSIN 0.4 MG CAPSULE PO SCH ×2 (09:52→21:21)
[2017-02-23] MEDS: ATORVASTATIN 40 MG TABLET PO SCH (09:53)
[2017-02-23] MEDS: FINASTERIDE 5 MG TABLET PO SCH (09:53)
[2017-02-23] MEDS: OMEGA 3 ACID ETHYL ESTERS 1 GM CAPSULE PO SCH ×2 (09:53→21:21)
[2017-02-23] MEDS: DESITIN 4OZ/NYSTATIN 15 GRAM MIXTURE PASTE TOP SCH ×2 (09:54→21:24)
[2017-02-23] MEDS: METHOCARBAMOL 750 MG TABLET PO SCH ×3 (09:54→21:20)
[2017-02-23] MEDS ORDERED: POLYETHYLENE GLYCOL POWDER 255 GM BOTTLE PO ONE (10:59)
--- NOTE | 2017-02-23 12:04 | Hospitalist Progress Note ---
Assessment and Plan (1) Urinary tract infection Status: Acute Assessment and plan: Patient is current on Zosyn. I will repeat a urinalysis and urine culture. Patient has finished a course of azithromycin. C. difficile was negative; admission is concerned about use of quinolones invasive diarrhea and suspicion of C. difficile for that reason Levaquin was discontinued. Gentleman has a history of prostatitis most likely chronic prostatitis. May need to be on a typical coverage for long time (approximately 3 weeks). Have to invoke use of Levaquin again. If urine is positive this will have to be an antibiotic to be included. Did grow an anaerobic gram-negative dorothy on previous admission however the system could not pursue identifying that organism because it was "nonviable growth" it is possible that this was a fastidious gram-negative organism that he may need more treatment. Will therefore resume use of levofloxacin and follow the patient clinically. Current Visit: No Qualifiers: Urinary tract infection type: site unspecified Hematuria presence: without hematuria Qualified Code(s): N39.0 - Urinary tract infection, site not specified (2) Antibiotic-associated diarrhea Status: Acute Assessment and plan: C. difficile analysis is negative twice. Doubt this is C. difficile infection. Stool cultures also nondiagnostic there was an element of information to the still with presence of white cells. Is interesting that in the background of use of azithromycin the abdominal pain has subsided; Campylobacter will therefore be suggested. Specifically check for Campylobacter antigen on the stool. Current Visit: Yes (3) Acute epididymo-orchitis Status: Acute Assessment and plan: I spoke to the patient at length today. He was informed that on the previous admission did have acute prostatitis. With that there was swelling of the scrotum subsequently. Had been admitted to the hospital with septic shock he did grow a gram-negative dorothy that was identified as an anaerobic gram-negative dorothy. Cannot subsequently identify this organism fully because it was nonviable. I have elected to resume use of levofloxacin and follow the patient clinically. Is being planned for a colonoscopy tomorrow. And in the process status of the prostate may be assessed. Ultrasound of the scrotum done on 18 February shows persistent epididymoorchitis. Current Visit: Yes Hospitalist: Subjective Interval history: Patient has been seen interviewed and examined and chart has been reviewed. He acknowledges that the diarrhea is less than abdominal pain is less. Pain in the area of his pudendal is also in decreased. Colonoscopy has been postponed again because we cannot clean him. He is not actively bleeding at this time. Was admitted to the hospital with active bleeding with bright red blood per rectum. This is a recent admission to the intensive care unit with what is described as septic shock about 3 weeks prior. Blood cultures from that time grew gram-negative rods and anaerobic specimen that could not be pursued fairly because there was no growth on reculturing. It is described as "nonviable growth." Documentation also has development of prostatitis during the hospitalization and subsequently he developed significant swelling of his scrotum and scrotal contents that by ultrasound to been described as epididymal orchitis. Repeat ultrasound on this admission shows persistence of this process. He is not very febrile but complains of a lot of pain to where he is unwilling to sit in the chair and stand for long time because of that. All the time of come to review him and talk to him he is lying in bed on his sides. Scrotal swelling reportedly is less than before. Today the first time he reported decrease in pain. Resumed his levofloxacin yesterday for fear of a typical infection associated with urethro-prostatic and possibly epidydmao-orchitic infections including mycoplasma and Ureaplasma. Exam - Constitutional Vitals: Period Temp Pulse Resp BP Sys/Mccray Pulse Ox Last 24 Hr 98.2 F-98.6 F 81-104 18-20 114-140/67-87 91-97 General appearance: over weight - Head Head exam: Present: normocephalic, atraumatic - Eye Eye exam: Present: EOMI Pupils: Present: WERNER - ENT ENT exam: Present: normal exam - Neck Neck exam: Present: normal inspection - Respiratory Respiratory exam: Present: clear to auscultation bilaterally - Cardiovascular Cardiovascular exam: Present: regular rate and rhythm - GI/Abdominal GI/Abdominal exam: Present: normal bowel sounds - Extremities Exam Extremities exam: Present: full ROM, other (Movement is limited by the pain in his groin) - Neurological Exam Neurological exam: Present: alert, oriented X3, CN II-XII intact - Psychiatric Psychiatric exam: Present: normal affect, normal mood - Skin Skin exam: Present: normal color, warm, dry, other (Scrotal edema) Results - Labs CBC & BMP: 02/23/17 05:35 02/23/17 05:35 Lab Results: I have reviewed the past 24 hour labs
[2017-02-23] MEDS: LEVOFLOXACIN INJ 750 MG in PREMIX 1 EACH IV SCH (12:26)
[2017-02-23] MEDS: BISACODYL 5 MG TABLET PO SCH ×3 (12:26→23:53)
[2017-02-23] MEDS: SODIUM CHLORIDE 0.9% 1,000 ML IV SCH ×3 (15:03→22:50)
--- NOTE | 2017-02-23 16:25 | Infectious Disease Progress ---
Assessment and Plan (1) Antibiotic-associated diarrhea Status: Acute Assessment and plan: 2 stool samples negative for C. difficile. C. difficile infection is unlikely. No other infectious cause of diarrhea identified. Current Visit: Yes (2) Acute epididymo-orchitis Status: Acute Assessment and plan: We do not have an organism for this infection; he may be incrementally better on current antibiotic therapy. Recommendations: Continue current antibiotics. Discussed with Dr. Monge and levofloxacin has been re-added. The patient will need prolonged antibiotic therapy for epididymoorchitis plus or minus prostatitis. 3-4 weeks is standard treatment duration. Discussed with at bedside. Current Visit: Yes (3) Bacteriuria Status: Acute Current Visit: Yes (4) Hypertension Status: Chronic Current Visit: No Qualifiers: Hypertension type: essential hypertension Qualified Code(s): I10 - Essential (primary) hypertension (5) Urinary retention Status: Chronic Current Visit: No Infectious Disease - PN: Subj Interval history: Patient is doing fair, he has less abdominal pain. No recurrence of fever for 3 days. Feels like his left scrotum may be a little less swollen. Is still passing stool with the bowel prep which is ongoing for the colonoscopy. Infectious Disease Exam (PN) - Constitutional Vitals: Temp Pulse Resp BP Pulse Ox 98.2 F 79 20 137/78 98 02/23/17 15:39 02/23/17 15:39 02/23/17 15:39 02/23/17 15:39 02/23/17 15:39 General appearance: over weight Exam: General appearance: no acute distress but still looks unwell in general - Eye Eye exam: Present: EOMI. no icterus Pupils: Present: WERNER - ENT ENT exam: no oral exudates - Respiratory Respiratory exam: vesicular BS, no crepitations or wheezes - Cardiovascular Cardiovascular exam: regular rate and rhythm, no murmurs - GI/Abdominal GI/Abdominal exam: normal bowel sounds, obese, soft, non-tender, unable to appreciate organomegaly or mass due to obesity - Still with erythema and induration to left side of scrotum, but possibly a little less than last week, soft brown stool soiling perineum - Extremities Exam Extremities exam: no edema - Skin Skin exam: no rash Results - Labs CBC & BMP: 02/23/17 05:35 02/23/17 05:35 Lab Results: I have reviewed the past 24 hour labs (Cultures remain negative)
[2017-02-23 17:05] LABS: Calcium 8.2 MG/DL (8.5-10.1); Osmolality,Calculated 275.7 MOS/KG (273-304); Potassium 4.3 MMOL/L (3.5-5.1)
[2017-02-23] MEDS: traZODone 50 MG TABLET PO PRN (21:25)
[2017-02-23] MEDS: MAGNESIUM CITRATE 300 ML BOTTLE PO SCH (21:58)
[2017-02-24] MEDS: PIPERACILLIN/TAZOBACTAM 3,375 MG in SODIUM CHLORIDE 0.9% 100 ML IV SCH ×3 (01:08→18:27)
[2017-02-24] MEDS: GABAPENTIN 600 MG TABLET PO SCH ×3 (04:09→20:57)
--- NOTE | 2017-02-24 05:55 | Pain Management Progress Note ---
Assessment and Plan (1) Chronic back pain Status: Chronic Assessment and plan: continue current medications for pain 02/24 patient to continue current medications for pain at this time Current Visit: No Qualifiers: Back pain location: low back pain Pain - Subjective Interval history: Patient has been stable the last 24 hours. Patient is still undergoing GI prep so he can have a scope. The nurse reports he still not clear may not be able to have the scope today patient has rested well overnight and no new complaints of pain are noted Exam - Constitutional Vitals: Period Temp Pulse Resp BP Sys/Mccray Pulse Ox Last 24 Hr 98 F-98.8 F 79-98 18-20 130-140/72-81 91-98 General appearance: no acute distress - Head Head exam: Present: normal inspection - Eye Eye exam: Present: EOMI Pupils: Present: WERNER - ENT ENT exam: Present: normal exam Ear exam: Present: intact Mouth exam: Present: normal external inspection - Neck Neck exam: Present: normal inspection - Respiratory Respiratory exam: Present: clear to auscultation bilaterally - Cardiovascular Cardiovascular exam: Present: RRR - GI/Abdominal GI/Abdominal exam: Present: tenderness - Extremities Exam Extremities exam: Present: normal inspection - Back Exam Back exam: Present: vertebral tenderness - Neurological Exam Neurological exam: Present: alert - Skin Skin exam: Present: normal color Results - Labs CBC & BMP: 02/23/17 05:35 02/23/17 16:31 Lab Results: I have reviewed the past 24 hour labs
[2017-02-24] MEDS ORDERED: MAGNESIUM CITRATE 300 ML BOTTLE PO ONE ×2 (06:06→07:02)
[2017-02-24] MEDS: BISACODYL 5 MG TABLET PO SCH ×2 (06:15→11:20)
[2017-02-24 06:53] LABS: Basophils # 0.1 10*3/uL (0.0-0.2); Basophils % 0.4 % (0.0-0.8); Eosinophils # 0.6 10*3/uL (0.0-0.87); Eosinophils % 3.8 % (0.00-10.9); Hematocrit 29.3 VOL% (42.0-52.0); Immature Granulocytes % 0.7 %; Immature Granulocytes Absolute 0.11 #; Lymphocytes # 1.7 10*3/uL (1.4-4.0); Lymphocytes % 11.5 % (21.2-54.2); Mean Corpuscular HGB Conc 30.7 GM/DL (32-36); Mean Corpuscular Hemoglobin 24 PG (27-34); Mean Corpuscular Volume 77.9 FL (87-102); Mean Platelet Volume 11.1 FL (9.6-12.0); Monocytes # 1.1 10*3/uL (0.11-0.8); Monocytes % 7.5 % (1.7-12.7); Neutrophils # 11.3 10*3/uL (1.4-7.4); Neutrophils % 76.1 % (38.7-73.9); Platelet Count 365 T/CUMM (130-400); Red Blood Count 3.76 MC/CUMM (3.8-5.5); Red Cell Distribution Width 13.7 % (9.3-17.3); White Blood Count 14.9 T/CUMM (4-12)
[2017-02-24 07:24] LABS: Calcium 8.1 MG/DL (8.5-10.1); Magnesium 2.8 MG/DL (1.8-2.4); Osmolality,Calculated 274.5 MOS/KG (273-304)
--- NOTE | 2017-02-24 07:34 | Urology Progress Note ---
Urology - PN: Subj Interval history: The patient is afebrile and I think that the induration and swelling in the left testicle is slowly improving Exam - Constitutional Vitals: Period Temp Pulse Resp BP Sys/Mccray Pulse Ox Last 24 Hr 98 F-98.8 F 79-98 18-20 130-140/72-81 91-98 Results - Labs CBC & BMP: 02/24/17 06:14 02/24/17 06:14
[2017-02-24] MEDS: MAGNESIUM CITRATE 300 ML BOTTLE PO SCH (11:01)
[2017-02-24] MEDS: TAMSULOSIN 0.4 MG CAPSULE PO SCH ×2 (11:01→20:58)
[2017-02-24] MEDS: ATORVASTATIN 40 MG TABLET PO SCH (11:01)
[2017-02-24] MEDS: FINASTERIDE 5 MG TABLET PO SCH (11:01)
[2017-02-24] MEDS: OMEGA 3 ACID ETHYL ESTERS 1 GM CAPSULE PO SCH ×2 (11:01→20:57)
[2017-02-24] MEDS: METHOCARBAMOL 750 MG TABLET PO SCH ×3 (11:02→20:57)
[2017-02-24] MEDS: DESITIN 4OZ/NYSTATIN 15 GRAM MIXTURE PASTE TOP SCH ×2 (11:02→21:00)
[2017-02-24] MEDS ORDERED: LIDOCAINE 100 MG/5 ML SYRINGE ONE (11:28)
[2017-02-24] MEDS ORDERED: PROPOFOL 200 MG/20 ML VIAL IV ONE (11:28)
--- NOTE | 2017-02-24 11:28 | History and Physical Update ---
History and Physical Update - History and Physical H&P was reviewed, the patient examined and there: are no changes in the patients condition since last H&P was completed. - Physical Exam Mental Status: alert and oriented Heart: regular rate and rhythm Lung: clear to auscultation Abdomen: within normal limits Vitals: within normal limits
--- NOTE | 2017-02-24 11:30 | Hospitalist Progress Note ---
Assessment and Plan (1) Urinary tract infection Status: Acute Assessment and plan: Patient is current on Zosyn. I will repeat a urinalysis and urine culture. Patient has finished a course of azithromycin. C. difficile was negative; admission is concerned about use of quinolones invasive diarrhea and suspicion of C. difficile for that reason Levaquin was discontinued. Gentleman has a history of prostatitis most likely chronic prostatitis. May need to be on a typical coverage for long time (approximately 3 weeks). Have to invoke use of Levaquin again. If urine is positive this will have to be an antibiotic to be included. Did grow an anaerobic gram-negative dorothy on previous admission however the system could not pursue identifying that organism because it was "nonviable growth" it is possible that this was a fastidious gram-negative organism that he may need more treatment. Will therefore resume use of levofloxacin and follow the patient clinically. Current Visit: No Qualifiers: Urinary tract infection type: site unspecified Hematuria presence: without hematuria Qualified Code(s): N39.0 - Urinary tract infection, site not specified (2) Antibiotic-associated diarrhea Status: Acute Assessment and plan: C. difficile analysis is negative twice. Doubt this is C. difficile infection. Stool cultures also nondiagnostic there was an element of information to the still with presence of white cells. Is interesting that in the background of use of azithromycin the abdominal pain has subsided; Campylobacter will therefore be suggested. Campylobacter assessment is negative. Current Visit: Yes (3) Acute epididymo-orchitis Status: Acute Assessment and plan: I spoke to the patient at length today. He was informed that on the previous admission did have acute prostatitis. With that there was swelling of the scrotum subsequently. Had been admitted to the hospital with septic shock he did grow a gram-negative dorothy that was identified as an anaerobic gram-negative dorothy. Cannot subsequently identify this organism fully because it was nonviable. I have elected to resume use of levofloxacin and follow the patient clinically. Is being planned for a colonoscopy tomorrow. And in the process status of the prostate may be assessed. Ultrasound of the scrotum done on 18 February shows persistent epididymoorchitis. Current Visit: Yes Hospitalist: Subjective Interval history: Patient has been seen interviewed and examined chart has been reviewed. Is complaining of being very tired because we went after him again try to clean his colon for colonoscopy overnight. This is the third goal trying to do this. Gentleman admitted to the hospital with reported hematochezia some diarrhea. History of stool incontinence subsequent to lower back surgeries or neurologic problems with the rectal sphincter. Also has history of being admitted to the hospital few days after this readmission with "prostatitis"'s and septic shock. During that hospital stay he had developed epididymitis with orchitis. Patient was sent home on ciprofloxacin wanted to return for this readmission with profound diarrhea. C. difficile workup has been negative. He has exquisite pain in the pudendal area where he cannot sit in the chair. Have urology involved in his case and both my and the urology evaluation notices reduce swelling in the scrotal area. His white count is now coming down. Have infectious disease involved in the case HIV assessment was done is negative evaluation for syphilis also negative. Exam - Constitutional Vitals: Period Temp Pulse Resp BP Sys/Mccray Pulse Ox Last 24 Hr 98 F-99.3 F 79-98 16-24 127-140/72-81 91-98 General appearance: over weight - Head Head exam: Present: normocephalic, atraumatic - Eye Eye exam: Present: EOMI Pupils: Present: WERNER - ENT ENT exam: Present: normal exam, normal oropharynx - Neck Neck exam: Present: normal inspection, other (Supple neck no adenopathy midline trachea no JVD) - Respiratory Respiratory exam: Present: clear to auscultation bilaterally - Cardiovascular Cardiovascular exam: Present: regular rate and rhythm - GI/Abdominal GI/Abdominal exam: Present: normal bowel sounds, soft, other (He has a rotund abdomen) - Extremities Exam Extremities exam: Present: other (He can move extremities without limitation but is in bed all the time) - Back Exam Back exam: Present: normal inspection - Neurological Exam Neurological exam: Present: alert, oriented X3, CN II-XII intact - Psychiatric Psychiatric exam: Present: normal affect - Skin Skin exam: Present: normal color, warm, dry Results - Labs CBC & BMP: 02/24/17 06:14 02/24/17 06:14 Lab Results: I have reviewed the past 24 hour labs
--- NOTE | 2017-02-24 11:51 | Operative Note ---
Date of procedure: 02/24/17 Pre-op diagnosis: Diarrhea, blood in stool Procedure: Procedure note: Colonoscopy with biopsies rectal mass Physician: Dr. Angelito Salinas Brief clinical abstract: Patient is a 56-year-old male admitted with sepsis 2 weeks ago thought to be of genitourinary origin.. He has had persistent diarrhea with fecal incontinence for approximately 1 week. Several episodes have been noted with bright red blood in his stool. Stool studies for infectious cause of been negative. Endoscopic findings: After informed consent was obtained, the patient was placed in the left lateral decubitus position. Digital rectal exam was performed with firm mass palpable just inside the anal verge along the posterior wall of the rectum. Pediatric videocolonoscope was inserted in the rectum. There was an ulcerated mass extending from distal rectum up into the mid rectum at least 10 cm in length. This occupied around 60% of the luminal circumference. Multiple biopsies were obtained from this for pathologic examination. Bowel prep was of rather poor quality with semisolid stool scattered throughout much of the colon. A few scattered diverticuli were noted in the colon. I was able to reach the mid ascending colon but there was quite a bit of looping in the endoscope which could not be fully reduced and bowel prep more proximal to this level was noted to have solid stool present. I elected to withdrawal the endoscope. No other masses or polyps are seen. The endoscope was withdrawn and patient appeared to tolerate the procedure well. Impression: #1 rectal mass-consistent with adenocarcinoma #2 diverticulosis coli Plan: CT abdomen/pelvis, serum CEA, and will need surgery and oncology consults. Anesthesia: MAC Surgeon / Physician: Joce Salinas Estimated blood loss: minimal Specimens: other (Rectal mass) Condition: stable Disposition: post procedure unit Results - Labs CBC & BMP: 02/24/17 06:14 02/24/17 06:14 Discharge Plan - Discharge Medications No Action [place] 3 Acid Ethyl Esters [Lovaza] 2 gm PO BID Gabapentin Cap/Tab [Neurontin Cap/Tab] 600 mg PO Q8H tablet Tamsulosin [Flomax] 0.4 mg PO BID capsule Methocarbamol Tab [Robaxin Tab] 750 mg PO TID Atorvastatin [Lipitor] 40 mg PO DAILY Tramadol HCl [Tramadol Tab] 1 tablet PO TID PRN PRN Reason: Pain Lisinopril/Hydrochlorothiazide [Lisinopril-Hctz 20-12.5 mg Tab] 1 each PO DAILY Furosemide 20 mg PO DAILY Acetaminophen Tab [Tylenol Tab] 500 mg PO Q6HR PRN PRN Reason: Pain Celecoxib [Celebrex] 200 mg PO DAILY PRN PRN Reason: arthritis Finasteride [Proscar] 5 mg PO DAILY tablet - Follow Up or Referral - Forms/Instructions
--- NOTE | 2017-02-24 12:17 | Anesthesia Post-Op ---
Anesthesia Post OP - Post Ansesthetic Evaluation Patient seen in post op: Yes Resp: within normal limits CV: within normal limits Mental: within normal limits Temp: within normal limits Ckan-Ya-Zeruftuox: within normal limits Nausea and Vomiting: within normal limits Pain: within normal limits
[2017-02-24] MEDS: LEVOFLOXACIN INJ 750 MG in PREMIX 1 EACH IV SCH (12:19)
--- NOTE | 2017-02-24 16:41 | Infectious Disease Progress ---
Assessment and Plan (1) Antibiotic-associated diarrhea Status: Acute Assessment and plan: 2 stool samples negative for C. difficile. C. difficile infection is unlikely. No other infectious cause of diarrhea identified. Current Visit: Yes (2) Acute epididymo-orchitis Status: Acute Assessment and plan: We do not have an organism for this infection; he seems better today. He has not been diagnosed with colon cancer and this may have been contributing to some of the perineal pain he is having as the cancer mass is apparently quite large. Recommendations: Continue current antibiotics. He is going to be evaluated by surgery and oncology regarding the colon cancer. Current Visit: Yes (3) Bacteriuria Status: Acute Current Visit: Yes (4) Hypertension Status: Chronic Current Visit: No Qualifiers: Hypertension type: essential hypertension Qualified Code(s): I10 - Essential (primary) hypertension (5) Urinary retention Status: Chronic Current Visit: No Infectious Disease - PN: Subj Interval history: Patient had colonoscopy finally and the large tumor was found in the rectum. No fever for the past 4 days. Says scrotal swelling is less. He says he is much better today and has been able to eat. Infectious Disease Exam (PN) - Constitutional Vitals: Temp Pulse Resp BP Pulse Ox 99.3 F 81 18 156/100 98 02/24/17 08:00 02/24/17 12:20 02/24/17 12:20 02/24/17 12:20 02/24/17 12:20 General appearance: over weight Exam: General appearance: no acute distress and looks much better than when I previously saw him - Eye Eye exam: Present: EOMI. no icterus Pupils: Present: WERNER - ENT ENT exam: no oral exudates - Respiratory Respiratory exam: vesicular BS, no crepitations or wheezes - Cardiovascular Cardiovascular exam: regular rate and rhythm, no murmurs - GI/Abdominal GI/Abdominal exam: normal bowel sounds, obese, soft, non-tender, unable to appreciate organomegaly or mass due to obesity - Still with erythema and induration to left side of scrotum but significantly improved compared to yesterday - Extremities Exam Extremities exam: no edema - Skin Skin exam: no rash Results - Labs CBC & BMP: 02/24/17 06:14 02/24/17 06:14 Lab Results: I have reviewed the past 24 hour labs
[2017-02-24] MEDS: SODIUM CHLORIDE 0.9% 1,000 ML IV SCH ×2 (18:27→20:58)
[2017-02-24] MEDS: ACETAMINOPHEN 500 MG TABLET PO PRN (20:57)
[2017-02-24] MEDS: traZODone 50 MG TABLET PO PRN (20:58)
[2017-02-25] MEDS: PIPERACILLIN/TAZOBACTAM 3,375 MG in SODIUM CHLORIDE 0.9% 100 ML IV SCH ×3 (01:08→18:59)
[2017-02-25] MEDS: GABAPENTIN 600 MG TABLET PO SCH ×3 (03:35→23:04)
[2017-02-25] MEDS: SODIUM CHLORIDE 0.9% 1,000 ML IV SCH (05:05)
--- NOTE | 2017-02-25 06:36 | Event Note ---
results of the colonoscopy were reviewed and noted. i will continue his current pain management regimen at this time. I will keep following to ensure appropriate pain management
--- NOTE | 2017-02-25 07:38 | CT Report ---
Referring physician: Av Monge MD EXAM: CT abdomen and pelvis with contrast DATE: February 25, 2017 COMPARISON: None REASON: Rectal mass TECHNIQUE: Axial images of the abdomen and pelvis were obtained after administration of 100 cc of Omnipaque 350 IV contrast. Oral contrast was also administered. Coronal and sagittal reformatted images were also provided. Total DLP is 3768.7 mGy*cm. FINDINGS: Lower thorax: There are mild scattered opacities within both lower lung zones. This likely represents atelectasis, but there could also be mild pneumonia within the right lower lobe. A follow-up chest x-ray would be helpful. ABDOMEN: Liver: There is a 2.7 cm ill-defined hypodense lesion within the anterior right hepatic lobe near the dome on image 25, series 2. There is also a similar ill-defined hypodense 3.1 cm lesion within the lateral left hepatic lobe on image 39. These lesions are nonspecific but could represent a neoplastic process such as metastatic disease. Gallbladder and bile ducts: The gallbladder is unremarkable. No biliary duct dilatation is present. Pancreas: Unremarkable. Spleen: Unremarkable. Adrenals: The right adrenal gland is unremarkable. There is a 2 cm fat density lesion at the lateral limb of the left adrenal gland. This likely represents a myelolipoma. Kidneys and ureters: No hydronephrosis is present. There is a 0.6 cm hypodensity within the mid left kidney on image 93, series 2. This may represent a cyst but is too small to well characterize. The ureters are unremarkable as visualized. PELVIS: Bladder: Unremarkable. Reproductive: The prostate is not enlarged. However, it abuts the rectum where there is wall thickening. ABDOMEN AND PELVIS: Bowel: There is diffuse wall thickening at the rectum and mid/distal sigmoid colon. This could represent a neoplastic process. Other considerations include an infectious or nonspecific inflammatory process. This wall thickening abuts the posterior margin of the prostate as mentioned above. There is no evidence of bowel obstruction. Appendix: There is no evidence of appendicitis. Vasculature: The abdominal aorta is normal in size. An IVC filter is in place.. Peritoneum/retroperitoneum: No free air or ascites is seen. There is nonspecific mild diffuse fat stranding within the pelvis, which could reflect mild inflammation or scarring. Lymph nodes: There is a prominent portacaval lymph node on image 59, measuring 1.6 cm in short axis diameter. There are also several borderline prominent retroperitoneal lymph nodes. An aortocaval lymph node on image 99 measures 0.9 cm in short axis diameter. Mildly prominent lymph nodes are also seen along the iliac chains bilaterally and in the inguinal regions bilaterally. A left inguinal lymph node on image 183 measures 1.8 cm in short axis diameter. There may be a few borderline prominent right perirectal lymph nodes, but evaluation is limited by artifact from surgical hardware and the previously mentioned fat stranding within the pelvis. This could represent metastatic adenopathy. Abdominal/pelvic wall: There is minimal fat within the inguinal canals bilaterally. Bones: There is deformity of the pelvis, consistent with multiple remote fractures. This mainly involves the right parasymphyseal region, right acetabulum and right iliac bone. There has been internal fixation of the posterior right acetabulum and right ilium. Heterotopic calcification is noted in these regions. There is also surgical change at the lumbar spine with surgical fusion of L3, L4 and L5. No acute osseous process is seen. IMPRESSION: 1. The patient has a history of a rectal mass. There is diffuse wall thickening at the rectum and mid/distal sigmoid colon. This could represent a neoplastic process, but other considerations include an infectious or nonspecific inflammatory process. 2. There are mildly enlarged lymph nodes in the portacaval region, along the iliac chains bilaterally and in the bilateral inguinal regions. There are also multiple borderline prominent retroperitoneal lymph nodes and questionable borderline prominent right perirectal lymph nodes. This could represent metastatic adenopathy. 3. Two ill-defined hypodense lesions are seen within the liver, one within the anterior right hepatic lobe and the other within the lateral left hepatic lobe. They are nonspecific but could represent a neoplastic process such as metastatic disease. 4. There is mild fat stranding throughout the pelvis. This could reflect scarring or mild inflammation. 5. There are mild scattered opacities within both lower lung zones. This likely represents atelectasis, but there could also be mild pneumonia within the right lower lobe. 6. Remote pelvic fractures. 7. IVC filter. The CT exam was performed using one or more of the following dose reduction techniques: Automated exposure control and adjustment of the mA and/or kV according to patient size. PROCEDURE INTERPRETED AT [facility] DEPARTMENT OF RADIOLOGY Final Report Signed by: Dr. Di Buitrago
--- NOTE | 2017-02-25 07:50 | Urology Progress Note ---
Urology - PN: Subj Interval history: The patient has developed a superficial scrotal abscess that is draining pus. I will I&D this today and hopefully can get a culture that may shed some light on the infectious organism. Exam - Constitutional Vitals: Period Temp Pulse Resp BP Sys/Mccray Pulse Ox Last 24 Hr 97.3 F-99.3 F 70-98 15-24 125-160/71-106 93-98 Results - Labs CBC & BMP: 02/24/17 06:14 02/24/17 06:14
[2017-02-25] MEDS ORDERED: FAMOTIDINE 20 MG TABLET PO ONE (08:27)
[2017-02-25] MEDS ORDERED: DIAZEPAM 5 MG TABLET PO ONE (08:27)
--- NOTE | 2017-02-25 08:50 | Gastrointestinal Progress Note ---
Assessment and Plan (1) Rectal bleed Status: Acute Assessment and plan: 02/25-C scope findings noted with path report pending. CT findings today noted. CEA unremarkable at 0.9. Surgery consult pending. Plan an addendum to followed by Dr. Salinas. 02/23-Continued poor prep, reschedule colonoscopy for tomorrow. Continue prep today. No reports of bleeding. Hgb down at 8.6. Plan and addendum to follow by Dr Salinas. 02/20-colonoscopy to be rescheduled until Thursday due to poor prep. Continue a clear liquid diet throughout the weekend and reprepped on Thursday afternoon. Plan an addendum to followed by Dr. Salinas. 02/19-sudden onset on yesterday of bright red rectal bleeding mixed in with dark red clots. Also rectal bleeding/oozing without bowel movement. Abdominal pain to epigastric region as well as lower quadrants. Hemoglobin trending down from 10.1 on admission to 8.4 nail. Stool studies negative for Clostridium difficile. Daily Celebrex use. Plan an addendum to followed by Dr. Salinas Current Visit: Yes Gastroenterology - PN: Subj Interval history: CC: Rectal bleed, rectal mass Patient is seen awake and alert lying in bed. He is going for I&D of scrotum with Dr. Cleveland this morning. Colonoscopy report findings noted. CT of abdomen this morning shows diffuse wall thickening at rectum and mid distal sigmoid colon, enlarged lymph nodes at portal caval region with borderline prominent retroperitoneal lymph nodes, 2 ill-defined hypodense lesions in the anterior right hepatic lobe and lateral left hepatic lobe. CEA unremarkable at 0.9. Surgery consult is pending. Abdomen is soft, nontender. States she is still having some rectal bleeding with his bowel movements. Hemoglobin is stable at 9.0 ROS: Denies shortness of breath or chest pain Exam (Progress Note) - Constitutional Vitals: Period Temp Pulse Resp BP Sys/Mccray Pulse Ox Last 24 Hr 97.3 F-98.4 F 70-98 15-24 125-160/71-106 93-98 General appearance: no acute distress, over weight - Head Head exam: Present: normal inspection, normocephalic - Eye Eye exam: Present: other (Lids and conjunctive are unremarkable). Absent: scleral icterus - ENT ENT exam: Present: normal exam, normal oropharynx - Neck Neck exam: Present: normal inspection - Respiratory Respiratory exam: Present: clear to auscultation bilaterally. Absent: rales, rhonchi, wheezes - Cardiovascular Cardiovascular exam: Present: regular rate and rhythm. Absent: diastolic murmur , JVD, systolic murmur - GI/Abdominal GI/Abdominal exam: Present: normal bowel sounds, soft. Absent: ascites, distended, mass, organomegaly, tenderness - Extremities Exam Extremities exam: Present: normal inspection, full ROM - Back Exam Back exam: Present: normal inspection - Neurological Exam Neurological exam: Present: alert, oriented X3 - Psychiatric Psychiatric exam: Present: normal affect, normal mood - Skin Skin exam: Present: normal color, warm, dry Results - Labs CBC & BMP: 02/24/17 06:14 02/24/17 06:14 Lab Results: I have reviewed the past 24 hour labs
[2017-02-25] MEDS: OMEGA 3 ACID ETHYL ESTERS 1 GM CAPSULE PO SCH ×2 (11:18→23:04)
[2017-02-25] MEDS: TAMSULOSIN 0.4 MG CAPSULE PO SCH ×2 (11:18→23:04)
[2017-02-25] MEDS: DESITIN 4OZ/NYSTATIN 15 GRAM MIXTURE PASTE TOP SCH ×2 (11:19→23:05)
[2017-02-25] MEDS: METHOCARBAMOL 750 MG TABLET PO SCH ×3 (11:19→23:04)
--- NOTE | 2017-02-25 11:26 | Infectious Disease Progress ---
Assessment and Plan (1) Antibiotic-associated diarrhea Status: Acute Assessment and plan: 2 stool samples negative for C. difficile. C. difficile infection is unlikely. No other infectious cause of diarrhea identified. It is likely incontinence related to the rectal mass. Current Visit: Yes (2) Acute epididymo-orchitis Status: Acute Assessment and plan: We do not have an organism for this infection. He has has some purulent drainage from the scrotum and I think he actually had scrotal cellulitis and now this is organized into an abscess. Recommendations: Continue current antibiotics. Swab taken from pus and sent for Gram stain and culture. Current Visit: Yes (3) Bacteriuria Status: Acute Current Visit: Yes (4) Hypertension Status: Chronic Current Visit: No Qualifiers: Hypertension type: essential hypertension Qualified Code(s): I10 - Essential (primary) hypertension (5) Urinary retention Status: Chronic Current Visit: No Infectious Disease - PN: Subj Interval history: Patient doing fair, says he started having drainage from the left side of the scrotum yesterday. He has not had fever. No other new complaints. Infectious Disease Exam (PN) - Constitutional Vitals: Temp Pulse Resp BP Pulse Ox 98.9 F 86 20 131/70 91 L 02/25/17 07:40 02/25/17 07:40 02/25/17 07:40 02/25/17 07:40 02/25/17 07:40 General appearance: no acute distress, over weight Exam: General appearance: no acute distress - Eye Eye exam: Present: EOMI. no icterus Pupils: Present: WERNER - ENT ENT exam: no oral exudates - Respiratory Respiratory exam: vesicular BS, no crepitations or wheezes - Cardiovascular Cardiovascular exam: regular rate and rhythm, no murmurs - GI/Abdominal GI/Abdominal exam: normal bowel sounds, obese, soft, non-tender, unable to appreciate organomegaly or mass due to obesity - Still with erythema and induration to left side of scrotum but significantly improved compared to yesterday, now there is drainage of quite a bit of bloody purulent material - Extremities Exam Extremities exam: no edema - Skin Skin exam: no rash Results - Labs CBC & BMP: 02/24/17 06:14 02/24/17 06:14 Lab Results: I have reviewed the past 24 hour labs
--- NOTE | 2017-02-25 12:48 | Pathology Report from [facility] ---
[facility] ACCESSION # : [id number] PATIENT NAME : Aric Mena ORDERING DR : BABAR OWENS MD CLINICAL HX: Diarrhea, blood in stool POST-OP DX: Same SPECIMEN INFO: Rectal mass GROSS DESCRIPTION: Received in formalin labeled ARIC MENA are fragments of pink savage mucosal tissue and yellow brown colonic mucosa measuring collectively 0.9 x 0.5 cm submitted in one cassette. DIAGNOSIS FOR ARIC MENA: RECTAL MASS BIOPSY: Invasive adenocarcinoma. COLLECTED DATE: 02/24/2017 [facility] REPORT DATE: 02/25/2017 ELECTRONICALLY SIGNED BY: Doroteo Parra M.D. 02/25/2017 - 9:29:08 [facility]PITALRosamaria
[2017-02-25] MEDS ORDERED: PROPOFOL 200 MG/20 ML VIAL IV ONE (12:51)
[2017-02-25] MEDS ORDERED: ONDANSETRON 4 MG/2 ML VIAL ONE ×2 (12:51→13:33)
[2017-02-25] MEDS ORDERED: LIDOCAINE 1% 5 ML VIAL ONE (12:51)
--- NOTE | 2017-02-25 13:23 | Operative Note ---
Date of procedure: 02/25/17 Pre-op diagnosis: Left scrotal abscess Post-op diagnosis: same Procedure: Under an adequate preop medication the patient was taken to the operating room placed on the table in supine position. General anesthesia was administered and the patient was turned into the lithotomy position prepped and draped in the usual manner. A timeout procedure was done. Incision was made over the fluctuant area and a moderate to large amount of purulent material was drained and appropriate cultures were taken. A finger was inserted into the abscess cavity and all loculations were broken up. The abscess did not appear to involve the testicle. The abscess cavity was then copiously irrigated with saline and Betadine and packed with iodoform gauze soaked in Betadine. Estimated blood loss was minimal. The patient tolerated procedure well and returned to the recovery room in good condition. Anesthesia: ALEXEYA Surgeon / Physician: Storm Cleveland Estimated blood loss: minimal Specimens: none sent Condition: stable Disposition: floor Results - Labs CBC & BMP: 02/24/17 06:14 02/24/17 06:14 Discharge Plan - Discharge Medications No Action [place] 3 Acid Ethyl Esters [Lovaza] 2 gm PO BID Gabapentin Cap/Tab [Neurontin Cap/Tab] 600 mg PO Q8H tablet Tamsulosin [Flomax] 0.4 mg PO BID capsule Methocarbamol Tab [Robaxin Tab] 750 mg PO TID Atorvastatin [Lipitor] 40 mg PO DAILY Tramadol HCl [Tramadol Tab] 1 tablet PO TID PRN PRN Reason: Pain Lisinopril/Hydrochlorothiazide [Lisinopril-Hctz 20-12.5 mg Tab] 1 each PO DAILY Furosemide 20 mg PO DAILY Acetaminophen Tab [Tylenol Tab] 500 mg PO Q6HR PRN PRN Reason: Pain Celecoxib [Celebrex] 200 mg PO DAILY PRN PRN Reason: arthritis Finasteride [Proscar] 5 mg PO DAILY tablet - Follow Up or Referral - Forms/Instructions
[2017-02-25] MEDS ORDERED: ONDANSETRON 4 MG/2 ML VIAL IV PRN (13:32)
[2017-02-25] MEDS: HYDROmorphone 2 MG/1 ML VIAL IV PRN ×2 (13:33→13:42)
[2017-02-25] MEDS ORDERED: HYDROmorphone 2 MG/1 ML VIAL ONE (13:33)
[2017-02-25] MEDS ORDERED: MIDAZOLAM 2 MG/2 ML VIAL ONE (13:52)
[2017-02-25] MEDS ORDERED: fentaNYL 100 MCG/2 ML VIAL ONE (13:53)
--- NOTE | 2017-02-25 13:54 | Hospitalist Progress Note ---
Assessment and Plan (1) Urinary tract infection Status: Acute Assessment and plan: Patient is current on Zosyn. I will repeat a urinalysis and urine culture. Patient has finished a course of azithromycin. C. difficile was negative; admission is concerned about use of quinolones invasive diarrhea and suspicion of C. difficile for that reason Levaquin was discontinued. Gentleman has a history of prostatitis most likely chronic prostatitis. May need to be on a typical coverage for long time (approximately 3 weeks). Have to invoke use of Levaquin again. If urine is positive this will have to be an antibiotic to be included. Did grow an anaerobic gram-negative dorothy on previous admission however the system could not pursue identifying that organism because it was "nonviable growth" it is possible that this was a fastidious gram-negative organism that he may need more treatment. Will therefore resume use of levofloxacin and follow the patient clinically. Current Visit: No Qualifiers: Urinary tract infection type: site unspecified Hematuria presence: without hematuria Qualified Code(s): N39.0 - Urinary tract infection, site not specified (2) Antibiotic-associated diarrhea Status: Acute Assessment and plan: Resolved. C. difficile assessments were negative. Current Visit: Yes (3) Acute epididymo-orchitis Status: Acute Assessment and plan: The scrotal swelling today was followed by spontaneous drainage of pus from it. Patient was taken to the operating room where he was explored and the drained abscess was irrigated specimen was sent to the laboratory for Gram stain and culture. Will follow and treat appropriately. Reportedly this abscess did not involve the testicle Current Visit: Yes Hospitalist: Subjective Interval history: Patient seen and interviewed. He did not say much today most likely affected by the finding on his colonoscopy of the tumor in his colorectal area. His was available by the bedside. Issues of today include spontaneous drainage of his scrotal abscess that has now been drained by urology assessment was sent to the laboratory for cultures and further evaluation. Reportedly this infection did not involve his testicle. Exam - Constitutional Vitals: Period Temp Pulse Resp BP Sys/Mccray Pulse Ox Last 24 Hr 97.3 F-98.9 F 70-98 16-22 122-136/70-91 91-100 General appearance: over weight - Head Head exam: Present: normocephalic - Eye Eye exam: Present: EOMI Pupils: Present: WERNER - ENT ENT exam: Present: normal exam - Neck Neck exam: Present: normal inspection, thyromegaly - Respiratory Respiratory exam: Present: clear to auscultation bilaterally - Cardiovascular Cardiovascular exam: Present: regular rate and rhythm - GI/Abdominal GI/Abdominal exam: Present: normal bowel sounds, soft - Extremities Exam Extremities exam: Present: full ROM - Back Exam Back exam: Present: normal inspection - Neurological Exam Neurological exam: Present: alert, oriented X3, CN II-XII intact - Psychiatric Psychiatric exam: Present: other (Subdued affect appropriate mood) - Skin Skin exam: Present: normal color, warm, dry Results - Labs CBC & BMP: 02/24/17 06:14 02/24/17 06:14 Lab Results: I have reviewed the past 24 hour labs (We will repeat CBC BMP and magnesium in the morning)
--- NOTE | 2017-02-25 14:09 | Anesthesia Post-Op ---
Anesthesia Post OP - Post Ansesthetic Evaluation Patient seen in post op: Yes Resp: within normal limits CV: within normal limits Mental: within normal limits Temp: within normal limits [id number]: within normal limits Nausea and Vomiting: within normal limits Pain: within normal limits
--- NOTE | 2017-02-25 15:32 | Ultrasound Report ---
History: Liver masses. Rectal adenocarcinoma Date: 02/25/2017 Study: Hepatic ultrasound Comparison exam: CT abdomen February 25, 2017 Real-time ultrasound images are captured and archived. There is an equivocal lobular area of decreased echogenicity along the left lateral margin of the lateral segment of the left lobe of the liver, measuring 31 mm length. This does not represent a simple cyst but could represent focal fat variation rather than neoplasm, as vessels are not displaced in this region. The more superior CT abnormality noted earlier the same day is not identified on today's exam, though the region of liver and interest cannot be visualized because of body habitus, superior peripheral location, and shadowing from the lungs. There is no intrahepatic biliary dilatation. There is no focal hepatic mass otherwise. The pancreas is obscured by bowel gas. The right kidney measures 10.6 cm length and appears normal. The gallbladder is normal in appearance. Impression: 31 mm lobular area of decreased echogenicity along left lateral margin of the lateral segment of the left lobe of the liver which could represent localized fat variation rather than neoplasm. This does not represent a simple cyst. The second CT lesion of interest, superiorly in the medial segment of the left lobe, cannot be visualized by this modality because of patient body habitus and peripheral location of the lesion. This radiologist recommends MRI liver for further evaluation. The lesion in the medial segment left lobe which is not visualized by ultrasound is the more ominous of the 2 lesions and is not a good candidate for CT guided biopsy. The lesion in the lateral segment of the left lobe could be biopsied by CT, but could very well represent benign fatty change. PROCEDURE INTERPRETED AT [facility] DEPARTMENT OF RADIOLOGY Final Report Signed by: Dr. Karina Salinas
[2017-02-25] MEDS: FINASTERIDE 5 MG TABLET PO SCH (16:14)
[2017-02-25] MEDS: ATORVASTATIN 40 MG TABLET PO SCH (16:15)
[2017-02-25] MEDS: POLYETHYLENE GLYCOL POWDER 17 GM PACK PO SCH (16:15)
[2017-02-25] MEDS: LEVOFLOXACIN INJ 750 MG in PREMIX 1 EACH IV SCH (16:15)
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
[2017-02-25] MEDS ORDERED: HYDROmorphone 2 MG/1 ML VIAL IV PRN ×2 (21:52→21:53)
--- NOTE | 2017-02-25 22:27 | XRay Report ---
XR chest 2V Indication: History of rectal cancer. Clinical concern for pulmonary metastatic disease. Comparison: Chest x-ray 01/23/2017. Technique: PA and lateral chest x-ray was performed. Findings: Heart size, mediastinal contour, and hilar structures demonstrate no significant abnormalities. The lung parenchyma is clear. Bones and soft tissues demonstrate no significant abnormalities. Impression: 1. No active cardiopulmonary disease. CT may be useful for further exclusion of pulmonary metastatic disease. 02/25/2017 10:24 PM PROCEDURE INTERPRETED AT [facility] DEPARTMENT OF RADIOLOGY Final Report Signed by: Dr. Freddie Gutierrez
[2017-02-26] MEDS: PIPERACILLIN/TAZOBACTAM 3,375 MG in SODIUM CHLORIDE 0.9% 100 ML IV SCH ×3 (02:05→18:14)
[2017-02-26 06:35] LABS: Calcium 7.8 MG/DL (8.5-10.1); Magnesium 2.3 MG/DL (1.8-2.4); Osmolality,Calculated 281.1 MOS/KG (273-304); Potassium 3.6 MMOL/L (3.5-5.1)
[2017-02-26 06:47] LABS: Basophils # 0.1 10*3/uL (0.0-0.2); Basophils % 0.5 % (0.0-0.8); Eosinophils # 0.6 10*3/uL (0.0-0.87); Eosinophils % 4.3 % (0.00-10.9); Hematocrit 27.9 VOL% (42.0-52.0); Hemoglobin 8.6 GM/DL (14.0-18.0); Immature Granulocytes % 1.6 %; Immature Granulocytes Absolute 0.23 #; Lymphocytes # 2.3 10*3/uL (1.4-4.0); Lymphocytes % 16.2 % (21.2-54.2); Mean Corpuscular HGB Conc 30.8 GM/DL (32-36); Mean Corpuscular Hemoglobin 24 PG (27-34); Mean Platelet Volume 10.5 FL (9.6-12.0); Monocytes # 0.9 10*3/uL (0.11-0.8); Monocytes % 6.2 % (1.7-12.7); Neutrophils % 71.2 % (38.7-73.9); Platelet Count 377 T/CUMM (130-400); Red Blood Count 3.53 MC/CUMM (3.8-5.5); Red Cell Distribution Width 13.9 % (9.3-17.3)
[2017-02-26] MEDS: SODIUM CHLORIDE 0.9% 1,000 ML IV SCH ×3 (07:00→22:00)
[2017-02-26] MEDS: TAMSULOSIN 0.4 MG CAPSULE PO SCH ×2 (08:58→20:10)
[2017-02-26] MEDS: METHOCARBAMOL 750 MG TABLET PO SCH ×3 (08:58→20:10)
[2017-02-26] MEDS: FINASTERIDE 5 MG TABLET PO SCH (08:58)
[2017-02-26] MEDS: OMEGA 3 ACID ETHYL ESTERS 1 GM CAPSULE PO SCH ×2 (08:58→20:10)
[2017-02-26] MEDS: ATORVASTATIN 40 MG TABLET PO SCH (08:58)
[2017-02-26] MEDS: GABAPENTIN 600 MG TABLET PO SCH ×3 (08:59→20:11)
[2017-02-26] MEDS: POLYETHYLENE GLYCOL POWDER 17 GM PACK PO SCH (08:59)
[2017-02-26] MEDS: DESITIN 4OZ/NYSTATIN 15 GRAM MIXTURE PASTE TOP SCH ×2 (08:59→20:12)
--- NOTE | 2017-02-26 12:14 | Pain Management Progress Note ---
Assessment and Plan (1) Chronic back pain Status: Chronic Assessment and plan: continue current medications for pain 02/24 patient to continue current medications for pain at this time 02/26 continue current medications for pain Current Visit: No Qualifiers: Back pain location: low back pain Pain - Subjective Interval history: Patient reports his pain is currently well-controlled on the current pain treatment regimen. Patient does not seem depressed regarding his recent diagnosis of rectal adenocarcinoma and possible liver metastasis. I have reassured the patient that I will work with him as much as needed to control his pain as he goes through further cancer treatment Exam - Constitutional Vitals: Period Temp Pulse Resp BP Sys/Mccray Pulse Ox Last 24 Hr 97.5 F-98.9 F 74-90 14-22 99-138/56-93 91-100 General appearance: no acute distress - Head Head exam: Present: normal inspection - Eye Eye exam: Present: EOMI Pupils: Present: WERNER - ENT ENT exam: Present: normal exam Ear exam: Present: intact Mouth exam: Present: normal external inspection - Neck Neck exam: Present: normal inspection - Respiratory Respiratory exam: Present: clear to auscultation bilaterally - Cardiovascular Cardiovascular exam: Present: RRR - GI/Abdominal GI/Abdominal exam: Present: tenderness - Extremities Exam Extremities exam: Present: normal inspection - Back Exam Back exam: Present: vertebral tenderness Results - Labs CBC & BMP: 02/24/17 06:14 02/24/17 06:14 Lab Results: I have reviewed the past 24 hour labs
--- NOTE | 2017-02-26 12:15 | General Surgery Progress Note ---
Assessment and Plan (1) Rectal bleed Status: Acute Assessment and plan: The patient has no evidence of pulmonary metastatic disease. I will continue to follow but I agree with the plans for PET scan and chemoradiation Current Visit: Yes Subjective Patient reports: Present: no new complaints, afebrile Exam - Constitutional Vitals: Period Temp Pulse Resp BP Sys/Mccray Pulse Ox Last 24 Hr 97.5 F-98.9 F 74-90 14-22 99-138/56-93 91-100 General appearance: no acute distress, morbidly obese - Head Head exam: Present: normal inspection, normocephalic - Eye Eye exam: Present: EOMI Pupils: Present: WERNER - ENT ENT exam: Present: normal exam Mouth exam: Present: normal external inspection, normal voice - Neck Neck exam: Present: normal inspection, trachea midline - Respiratory Respiratory exam: Present: clear to auscultation bilaterally. Absent: accessory muscle use, chest wall tenderness - Cardiovascular Cardiovascular exam: Present: RRR. Absent: systolic murmur, tachycardia - GI/Abdominal GI/Abdominal exam: Present: normal bowel sounds, soft. Absent: tenderness, rebound - Extremities Exam Extremities exam: Present: normal inspection, normal capillary refill - Back Exam Back exam: Present: normal inspection - Neurological Exam Neurological exam: Present: alert, oriented X3 Speech: Present: normal - Skin Skin exam: Present: normal color, warm Results - Labs CBC & BMP: 02/26/17 04:00 02/24/17 06:14 - Diagnostic Findings Procedure: Chest x-ray: image reviewed by me, report reviewed by me (No pulmonary metastatic disease)
--- NOTE | 2017-02-26 12:15 | Urology Progress Note ---
Urology - PN: Subj Interval history: The patient had drainage of superficial scrotal abscess yesterday. The testicle was not involved. Cultures were taken and hopefully will get a report that will help direct antibiotic therapy. Will start local wound care of the abscess today Exam - Constitutional Vitals: Period Temp Pulse Resp BP Sys/Mccray Pulse Ox Last 24 Hr 97.5 F-98.9 F 74-90 14-22 99-138/56-93 91-100 Results - Labs CBC & BMP: 02/26/17 04:00 02/26/17 04:00
--- NOTE | 2017-02-26 12:19 | Infectious Disease Progress ---
Assessment and Plan (1) Antibiotic-associated diarrhea Status: Acute Assessment and plan: Resolved Current Visit: Yes (2) Acute epididymo-orchitis Status: Acute Assessment and plan: He has significant scrotal abscess now and that was drained yesterday. We are awaiting cultures. Recommendations: Continue current antibiotics. Current Visit: Yes (3) Bacteriuria Status: Acute Current Visit: Yes (4) Hypertension Status: Chronic Current Visit: No Qualifiers: Qualified Code(s): I10 - Essential (primary) hypertension (5) Urinary retention Status: Chronic Current Visit: No Infectious Disease - PN: Subj Interval history: Patient doing well today seems to be in good spirits. His appetite is back completely. He had I&D of a scrotal abscess yesterday and a lot of purulent material was removed. He has less pain in the area. No fever. Infectious Disease Exam (PN) - Constitutional Vitals: Temp Pulse Resp BP Pulse Ox 98.4 F 75 18 108/60 96 02/26/17 04:10 02/26/17 04:10 02/26/17 04:10 02/26/17 04:10 02/26/17 04:10 General appearance: no acute distress, morbidly obese Exam: General appearance: no acute distress - Eye Eye exam: Present: EOMI. no icterus Pupils: Present: WERNER - ENT ENT exam: no oral exudates - Respiratory Respiratory exam: vesicular BS, no crepitations or wheezes - Cardiovascular Cardiovascular exam: regular rate and rhythm, no murmurs - GI/Abdominal GI/Abdominal exam: normal bowel sounds, obese, soft, non-tender, unable to appreciate organomegaly or mass due to obesity - Scrotal wound bandaged - Extremities Exam Extremities exam: no edema - Skin Skin exam: no rash Results - Labs CBC & BMP: 02/26/17 04:00 02/26/17 04:00 Lab Results: I have reviewed the past 24 hour labs
--- NOTE | 2017-02-26 12:20 | Gastrointestinal Progress Note ---
Assessment and Plan (1) Rectal bleed Status: Acute Assessment and plan: 02/26-pathology report returned as invasive adenocarcinoma. Oncology follow-up scheduled upon discharge. Hemoglobin 8.6. Plan an addendum to followed by Dr. Salinas. 02/25-C scope findings noted with path report pending. CT findings today noted. CEA unremarkable at 0.9. Surgery consult pending. Plan an addendum to followed by Dr. Salinas. 02/23-Continued poor prep, reschedule colonoscopy for tomorrow. Continue prep today. No reports of bleeding. Hgb down at 8.6. Plan and addendum to follow by Dr Salinas. 02/20-colonoscopy to be rescheduled until Thursday due to poor prep. Continue a clear liquid diet throughout the weekend and reprepped on Thursday afternoon. Plan an addendum to followed by Dr. Salinas. 02/19-sudden onset on yesterday of bright red rectal bleeding mixed in with dark red clots. Also rectal bleeding/oozing without bowel movement. Abdominal pain to epigastric region as well as lower quadrants. Hemoglobin trending down from 10.1 on admission to 8.4 nail. Stool studies negative for Clostridium difficile. Daily Celebrex use. Plan an addendum to followed by Dr. Salinas Current Visit: Yes Gastroenterology - PN: Subj Interval history: CC: Rectal bleed Patient is seen lying in bed awake and alert. States he had a restful night. He denies any abdominal pain, nausea or vomiting at present. States he is having continued diarrhea with small amount of bleeding at times. Dr. Akbar and Dr. Ramirez have consulted with patient. Patient is to follow-up with Dr. Akbar in clinic on March 16 to discuss further treatment pending PET scan after discharge. Abdomen soft, nontender. Hemoglobin is down slightly at 8.6. Pathology report noted to return as invasive adenocarcinoma. ROS: Denies shortness of breath or chest pain Exam (Progress Note) - Constitutional Vitals: Period Temp Pulse Resp BP Sys/Mccray Pulse Ox Last 24 Hr 97.5 F-98.4 F 74-90 14-22 99-138/56-93 93-100 General appearance: no acute distress, over weight - Head Head exam: Present: normal inspection, normocephalic - Eye Eye exam: Present: other (Lids and conjunctive are unremarkable). Absent: scleral icterus - ENT ENT exam: Present: normal exam, normal oropharynx - Neck Neck exam: Present: normal inspection - Respiratory Respiratory exam: Present: clear to auscultation bilaterally. Absent: rales, rhonchi, wheezes - Cardiovascular Cardiovascular exam: Present: regular rate and rhythm. Absent: diastolic murmur , JVD, systolic murmur - GI/Abdominal GI/Abdominal exam: Present: normal bowel sounds, soft. Absent: ascites, distended, mass, organomegaly, tenderness - Extremities Exam Extremities exam: Present: normal inspection, full ROM - Back Exam Back exam: Present: normal inspection - Neurological Exam Neurological exam: Present: alert, oriented X3 - Psychiatric Psychiatric exam: Present: normal affect, normal mood - Skin Skin exam: Present: normal color, warm, dry Results - Labs CBC & BMP: 02/26/17 04:00 02/26/17 04:00 Lab Results: I have reviewed the past 24 hour labs
--- NOTE | 2017-02-26 14:09 | Hospitalist Progress Note ---
Assessment and Plan (1) Urinary tract infection Status: Acute Assessment and plan: Patient is current on Zosyn. I will repeat a urinalysis and urine culture. Patient has finished a course of azithromycin. C. difficile was negative; admission is concerned about use of quinolones invasive diarrhea and suspicion of C. difficile for that reason Levaquin was discontinued. Gentleman has a history of prostatitis most likely chronic prostatitis. May need to be on a typical coverage for long time (approximately 3 weeks). Have to invoke use of Levaquin again. If urine is positive this will have to be an antibiotic to be included. Did grow an anaerobic gram-negative dorothy on previous admission however the system could not pursue identifying that organism because it was "nonviable growth" it is possible that this was a fastidious gram-negative organism that he may need more treatment. Will therefore resume use of levofloxacin and follow the patient clinically. Current Visit: No Qualifiers: Urinary tract infection type: site unspecified Hematuria presence: without hematuria Qualified Code(s): N39.0 - Urinary tract infection, site not specified (2) Antibiotic-associated diarrhea Status: Acute Assessment and plan: Resolved. C. difficile assessments were negative. Current Visit: Yes (3) Acute epididymo-orchitis Status: Acute Assessment and plan: The scrotal swelling today was followed by spontaneous drainage of pus from it. Patient was taken to the operating room where he was explored and the drained abscess was irrigated specimen was sent to the laboratory for Gram stain and culture. Will follow and treat appropriately. Reportedly this abscess did not involve the testicle. Check with microbiology laboratory specimen from the operating room was pulled in thio broth. There is nothing to Gram stain. Will await growth on the media to define what is was the cause of the abscess. Current Visit: Yes Hospitalist: Subjective Interval history: Patient has been seen interviewed and examined and chart has been reviewed. He is complaining of pain on sitting in the pudendal area. He has had incision and drainage of a scrotal abscess and also colonoscopy. There is no mention of advancing cellulitis or fasciitis in the pudendal area. I did inspect him on that that did not notice it either. Patient will be given some analgesia Exam - Constitutional Vitals: Period Temp Pulse Resp BP Sys/Mccray Pulse Ox Last 24 Hr 97.5 F-98.4 F 72-90 18-21 94-138/55-93 93-98 General appearance: over weight - Head Head exam: Present: normal inspection, normocephalic - Eye Eye exam: Present: EOMI Pupils: Present: WERNER - ENT ENT exam: Present: normal exam, normal oropharynx - Neck Neck exam: Present: normal inspection - Respiratory Respiratory exam: Present: clear to auscultation bilaterally - Cardiovascular Cardiovascular exam: Present: regular rate and rhythm - GI/Abdominal GI/Abdominal exam: Present: normal bowel sounds, soft, other - Extremities Exam Extremities exam: Present: full ROM (Rotund abdomen), other (Generalized with) - Neurological Exam Neurological exam: Present: alert, oriented X3, CN II-XII intact - Psychiatric Psychiatric exam: Present: normal affect, normal mood - Skin Skin exam: Present: normal color, warm, dry Results - Labs CBC & BMP: 02/26/17 04:00 02/26/17 04:00 Lab Results: I have reviewed the past 24 hour labs (Count is slowly improving)
[2017-02-26] MEDS: LEVOFLOXACIN INJ 750 MG in PREMIX 1 EACH IV SCH (15:23)
[2017-02-26] MEDS: traZODone 50 MG TABLET PO PRN (20:11)
[2017-02-27] MEDS: PIPERACILLIN/TAZOBACTAM 3,375 MG in SODIUM CHLORIDE 0.9% 100 ML IV SCH ×3 (02:29→20:29)
[2017-02-27] MEDS: GABAPENTIN 600 MG TABLET PO SCH ×3 (05:30→20:30)
--- NOTE | 2017-02-27 06:21 | Pain Management Progress Note ---
Assessment and Plan (1) Chronic back pain Status: Chronic Assessment and plan: continue current medications for pain 02/24 patient to continue current medications for pain at this time 02/26 continue current medications for pain 02/27 recommend to continue current plan of pain management. I will be available as needed for pain management concerns Current Visit: No Qualifiers: Back pain location: low back pain Pain - Subjective Interval history: Patient has been stable for pain management issues over the last 24 hours. Has no new questions or concerns Exam - Constitutional Vitals: Period Temp Pulse Resp BP Sys/Mccray Pulse Ox Last 24 Hr 96.7 F-99.0 F 72-84 18-20 94-134/55-76 91-97 General appearance: no acute distress - Head Head exam: Present: normal inspection - Eye Eye exam: Present: EOMI Pupils: Present: WERNER - ENT ENT exam: Present: normal exam Ear exam: Present: intact Mouth exam: Present: normal external inspection - Neck Neck exam: Present: normal inspection - Respiratory Respiratory exam: Present: clear to auscultation bilaterally - Cardiovascular Cardiovascular exam: Present: RRR - GI/Abdominal GI/Abdominal exam: Present: tenderness - Extremities Exam Extremities exam: Present: normal inspection - Back Exam Back exam: Present: vertebral tenderness - Neurological Exam Neurological exam: Present: alert - Skin Skin exam: Present: normal color Results - Labs CBC & BMP: 02/26/17 04:00 02/26/17 04:00 Lab Results: I have reviewed the past 24 hour labs
--- NOTE | 2017-02-27 07:37 | Urology Progress Note ---
Urology - PN: Subj Interval history: The patient is afebrile. I am going to remove the pack from the abscess today and start local care twice a day. We will arrange for home health nurse to see the patient to assist with abscess management post discharge. 1 abscess cultures is negative negative the other is growing gram-positive organism. The patient will also go home on intermittent self-catheterization. It is okay with me to discharge the patient as needed and I will let Dr. Romero make a decision about antibiotic therapy post discharge Exam - Constitutional Vitals: Period Temp Pulse Resp BP Sys/Mccray Pulse Ox Last 24 Hr 96.7 F-99.0 F 72-84 18-20 94-134/55-76 91-97 Results - Labs CBC & BMP: 02/26/17 04:00 02/26/17 04:00
[2017-02-27] MEDS: SODIUM CHLORIDE 0.9% 1,000 ML IV SCH ×2 (09:00→16:39)
[2017-02-27] MEDS: METHOCARBAMOL 750 MG TABLET PO SCH ×3 (09:03→20:30)
[2017-02-27] MEDS: TAMSULOSIN 0.4 MG CAPSULE PO SCH ×2 (09:03→20:30)
[2017-02-27] MEDS: DESITIN 4OZ/NYSTATIN 15 GRAM MIXTURE PASTE TOP SCH ×2 (09:04→20:30)
[2017-02-27] MEDS: OMEGA 3 ACID ETHYL ESTERS 1 GM CAPSULE PO SCH ×2 (09:04→20:30)
[2017-02-27] MEDS: POLYETHYLENE GLYCOL POWDER 17 GM PACK PO SCH (09:04)
[2017-02-27] MEDS: FINASTERIDE 5 MG TABLET PO SCH (09:04)
[2017-02-27] MEDS: ATORVASTATIN 40 MG TABLET PO SCH (09:04)
--- NOTE | 2017-02-27 10:17 | General Surgery Progress Note ---
Assessment and Plan (1) Rectal bleed Status: Acute Assessment and plan: This patient has locally advanced rectal cancer that is fixed to the sphincter muscles. There is some concern of metastatic disease with a large portacaval lymph node and some liver lesions that are indeterminate. There are no plans for acute surgical intervention. The surgical team will follow him as needed over the weekend and I will be back on Thursday. He still here I will check on him then. If not he can follow-up with Dr. Villalba for the initial treatment he will receive and I can see him back after he receives chemoradiation and any other treatment for metastatic disease to see if anything will need to be done with his primary. Current Visit: Yes Subjective Patient reports: Present: no new complaints Exam - Constitutional Vitals: Period Temp Pulse Resp BP Sys/Mccray Pulse Ox Last 24 Hr 96.7 F-99.0 F 75-84 18-20 94-134/55-76 91-97 Results - Labs CBC & BMP: 02/26/17 04:00 02/26/17 04:00
--- NOTE | 2017-02-27 11:09 | Infectious Disease Progress ---
Assessment and Plan (1) Antibiotic-associated diarrhea Status: Acute Assessment and plan: Resolved Current Visit: Yes (2) Acute epididymo-orchitis Status: Acute Assessment and plan: He has significant scrotal abscess now and that was drained yesterday. We are awaiting cultures. Recommendations: Vancomycin added for GPC's which could very well be MRSA. Continue other antibiotics. The patient goes over for the cultures come back I would let him have doxycycline to cover possible MRSA and then he could continue the Levaquin for epididymoorchitis. Discussed with Dr. Monge Current Visit: Yes (3) Bacteriuria Status: Acute Current Visit: Yes (4) Hypertension Status: Chronic Current Visit: No Qualifiers: Hypertension type: essential hypertension Qualified Code(s): I10 - Essential (primary) hypertension (5) Urinary retention Status: Chronic Current Visit: No Infectious Disease - PN: Subj Interval history: Patient feeling much better he says, but he still has significant pain to the scrotal area and perineum. No fever. He is eating well, no vomiting or any more diarrhea, no cough or shortness of breath. Infectious Disease Exam (PN) - Constitutional Vitals: Temp Pulse Resp BP Pulse Ox 97.7 F 73 18 118/67 92 L 02/27/17 08:00 02/27/17 08:00 02/27/17 08:00 02/27/17 08:00 02/27/17 08:00 General appearance: no acute distress Exam: General appearance: no acute distress - Eye Eye exam: Present: EOMI. no icterus Pupils: Present: WERNER - ENT ENT exam: no oral exudates - Respiratory Respiratory exam: vesicular BS, no crepitations or wheezes - Cardiovascular Cardiovascular exam: regular rate and rhythm, no murmurs - GI/Abdominal GI/Abdominal exam: normal bowel sounds, obese, soft, non-tender, unable to appreciate organomegaly or mass due to obesity - Scrotal wound noted with packing, this is surrounding induration but significantly less erythema and the swelling overall has decreased some - Extremities Exam Extremities exam: no edema - Skin Skin exam: no rash Results - Labs CBC & BMP: 02/26/17 04:00 02/26/17 04:00 Lab Results: I have reviewed the past 24 hour labs (GPC's going from scrotal wound)
--- NOTE | 2017-02-27 13:46 | Hospitalist Progress Note ---
Assessment and Plan (1) Urinary tract infection Status: Acute Assessment and plan: Patient is current on Zosyn. I will repeat a urinalysis and urine culture. Patient has finished a course of azithromycin. C. difficile was negative; admission is concerned about use of quinolones invasive diarrhea and suspicion of C. difficile for that reason Levaquin was discontinued. Gentleman has a history of prostatitis most likely chronic prostatitis. May need to be on a typical coverage for long time (approximately 3 weeks). Have to invoke use of Levaquin again. If urine is positive this will have to be an antibiotic to be included. Did grow an anaerobic gram-negative dorothy on previous admission however the system could not pursue identifying that organism because it was "nonviable growth" it is possible that this was a fastidious gram-negative organism that he may need more treatment. Will therefore resume use of levofloxacin and follow the patient clinically. Current Visit: No Qualifiers: Urinary tract infection type: site unspecified Hematuria presence: without hematuria Qualified Code(s): N39.0 - Urinary tract infection, site not specified (2) Antibiotic-associated diarrhea Status: Acute Assessment and plan: Resolved. C. difficile assessments were negative. Current Visit: Yes (3) Acute epididymo-orchitis Status: Acute Assessment and plan: Incision and drainage specimen is growing gram-positive cocci. For the evaluation for antibiogram is pending she should be started on vancomycin in anticipation that this may be staph species. The meantime continue Zosyn and levofloxacin. Current Visit: Yes Hospitalist: Subjective Interval history: Patient has been seen interviewed and examined and chart has been reviewed. This is a relatively long hospital stay in a gentleman who had been admitted to the hospital On 16 February with diarrhea and follicular and infected urine. Patient had been sent home 19 days prior management of sepsis and ICU. He had developed swelling of his scrotum at that time which at the time of return to the hospital did look like a full-blown infection. Ultrasound was done that did show epididymoorchitis. When it took over the care of the patient will continue broad-spectrum antibiotics did have a short course of azithromycin besides the Zosyn and subsequently put him back on levofloxacin. 3 days ago patient had spontaneous rupture of this abscess on the scrotum which was incised and drained. Surgical report states that his testicle was not involved in the infection. Cultures from that specimen is growing gram-positive cocci identity and sensitivities pending at this point. And is interested in going home and feels better he still does have leukocytosis but no fever. My concern is that he would need to know this organism for his before sending him home with an oral antibiotic because of the chest would be treated with methicillin- resistant staph aureus. In order to further assess his pudendal region patient had a CT scan of the pelvis region that incidentally found thickening of the wall of the colorectal area. A colonoscopy was done that reveals locally invasive adenocarcinoma. Oncology has been consulted and elected to await for staging of this disease before the comment on treatment. He can go home after no blood in infection and be treated outpatient. Hopefully there will be an oral antibiotic he can use. Exam - Constitutional Vitals: Period Temp Pulse Resp BP Sys/Mccray Pulse Ox Last 24 Hr 96.7 F-99.0 F 73-82 18-20 118-136/67-85 91-97 General appearance: over weight - Head Head exam: Present: normocephalic, atraumatic - Eye Eye exam: Present: EOMI Pupils: Present: WERNER - ENT ENT exam: Present: normal exam - Neck Neck exam: Present: normal inspection - Respiratory Respiratory exam: Present: clear to auscultation bilaterally - Cardiovascular Cardiovascular exam: Present: regular rate and rhythm - GI/Abdominal GI/Abdominal exam: Present: normal bowel sounds, soft - Extremities Exam Extremities exam: Present: full ROM - Neurological Exam Neurological exam: Present: alert, oriented X3, CN II-XII intact - Psychiatric Psychiatric exam: Present: normal affect, normal mood - Skin Skin exam: Present: normal color, warm, dry Results - Labs CBC & BMP: 02/26/17 04:00 02/26/17 04:00 Lab Results: I have reviewed the past 24 hour labs (Culture of the scrotal infection is gram-positive cocci pending identification is sensitive)
[2017-02-27] MEDS: LEVOFLOXACIN INJ 750 MG in PREMIX 1 EACH IV SCH (14:11)
[2017-02-27] MEDS: VANCOMYCIN INJ 2,000 MG in SODIUM CHLORIDE 0.9% 500 ML IV SCH ×2 (15:39→23:27)
[2017-02-27] MEDS: traZODone 50 MG TABLET PO PRN (20:31)
[2017-02-28] MEDS: PIPERACILLIN/TAZOBACTAM 3,375 MG in SODIUM CHLORIDE 0.9% 100 ML IV SCH ×2 (02:01→11:19)
[2017-02-28] MEDS: SODIUM CHLORIDE 0.9% 1,000 ML IV SCH ×2 (02:02→16:24)
[2017-02-28] MEDS: GABAPENTIN 600 MG TABLET PO SCH ×3 (03:24→14:16)
--- NOTE | 2017-02-28 07:01 | Urology Progress Note ---
Urology - PN: Subj Interval history: Abscess culture shows Staphylococcus and is sensitive to vancomycin which he is on. The patient has a swollen area in the lower part of the scrotum that is indurated but nontender and I do not think this represents residual abscess. Continue local wound care and antibiotics Exam - Constitutional Vitals: Period Temp Pulse Resp BP Sys/Mccray Pulse Ox Last 24 Hr 97.5 F-98.6 F 73-96 18-20 114-147/64-85 92-96 Results - Labs CBC & BMP: 02/26/17 04:00 02/26/17 04:00
[2017-02-28] MEDS: OMEGA 3 ACID ETHYL ESTERS 1 GM CAPSULE PO SCH (08:44)
[2017-02-28] MEDS: DESITIN 4OZ/NYSTATIN 15 GRAM MIXTURE PASTE TOP SCH (08:44)
[2017-02-28] MEDS: POLYETHYLENE GLYCOL POWDER 17 GM PACK PO SCH (08:44)
[2017-02-28] MEDS: TAMSULOSIN 0.4 MG CAPSULE PO SCH (08:44)
[2017-02-28] MEDS: METHOCARBAMOL 750 MG TABLET PO SCH ×2 (08:44→14:16)
[2017-02-28] MEDS: ATORVASTATIN 40 MG TABLET PO SCH (08:44)
[2017-02-28] MEDS: FINASTERIDE 5 MG TABLET PO SCH (08:44)
[2017-02-28] MEDS: VANCOMYCIN INJ 2,000 MG in SODIUM CHLORIDE 0.9% 500 ML IV SCH (09:27)
--- NOTE | 2017-02-28 10:09 | Hospitalist Progress Note ---
Assessment and Plan - Time spent with patient Time spent with patient: Less than 30 minutes (1) Acute epididymo-orchitis Status: Acute Assessment and plan: Patient had a scrotal abscess which is been indeed by urology. He is okay for discharge from their standpoint. Cultures are noted. Will discuss further with ID about appropriate antibiotic coverage and discharge planning. Current Visit: Yes (2) Hypertension Status: Chronic Current Visit: No Qualifiers: Hypertension type: essential hypertension Qualified Code(s): I10 - Essential (primary) hypertension (3) Antibiotic-associated diarrhea Status: Resolved Current Visit: Yes (4) Colorectal cancer Status: Acute Assessment and plan: Patient has rectal carcinoma which is being followed by Dr. navarrete. Will arrange for follow-up as an outpatient. Current Visit: Yes Hospitalist: Subjective Interval history: Patient has no complaints at this time. He states that Dr. Cleveland said that he could be discharged from his standpoint. He is continuing to require in and out caths for which he states he has home health and his has been trained as well. Exam - Constitutional Vitals: Period Temp Pulse Resp BP Sys/Mccray Pulse Ox Last 24 Hr 97.4 F-98.6 F 76-96 18-20 114-147/64-85 92-96 General appearance: no acute distress - Head Head exam: Present: normocephalic, atraumatic - Eye Eye exam: Present: EOMI Pupils: Present: WERNER - ENT ENT exam: Present: normal exam - Neck Neck exam: Present: normal inspection - Respiratory Respiratory exam: Present: clear to auscultation bilaterally - Cardiovascular Cardiovascular exam: Present: regular rate and rhythm - GI/Abdominal GI/Abdominal exam: Present: normal bowel sounds, soft. Absent: mass, rebound - Extremities Exam Extremities exam: Absent: calf tenderness, edema - Back Exam Back exam: Present: normal inspection - Neurological Exam Neurological exam: Present: alert, oriented X3, CN II-XII intact. Absent: motor sensory deficit - Psychiatric Psychiatric exam: Present: normal affect, normal mood. Absent: agitated, anxious - Skin Skin exam: Present: warm, dry. Absent: erythema Results - Labs CBC & BMP: 02/26/17 04:00 02/26/17 04:00 Lab Results: I have reviewed the past 24 hour labs
[2017-02-28 12:03] VITALS: BP 112/70
--- NOTE | 2017-02-28 12:09 | Discharge Summary ---
Hospital Course - Hospital Course Hospital Course: Mr. Gloria is a 56-year-old male who was originally admitted for sepsis secondary to presumed urinary tract infection. He was known to have a neurogenic bladder and prostatic enlargement. He required IV pressors IV antibiotics and was seen in consultation by Dr. Cleveland and subsequently discharged home with in and out caths. He had been home for approximately 19 days and re-presented for this admission on 02/16/17. He has some abdominal discomfort with diarrhea and sweats with nausea but no vomiting. He was placed on IV fluids Flagyl and Levaquin at that time after appropriate cultures and stool studies were obtained. He was also seen by infectious disease who further evaluated for possible C. difficile. Gastroenterology saw in consultation and the patient underwent colonoscopy which revealed rectal carcinoma. Patient was seen by Dr. Akbar of oncology who explained that he had rectal carcinoma that would require further evaluation. He did have some lesions on his liver which raise concern for metastatic disease and he recommended initiation of workup by PET scanning which was scheduled for an outpatient on March 16. He did have a scrotal abscess which was also seen by urology and drained and treated with appropriate IV antibiotic therapy. He was felt from an oncology standpoint he could be discharged home with resumption of outpatient care and follow-up. He was also seen by general surgery, Dr. Ramirez, who noted there were no plans for acute surgical intervention. He could follow- up after further evaluation for metastatic disease. Patient is now afebrile, hemodynamically stable, tolerating oral diet and medications and it is felt that he is ready for discharge. After discussio with Dr Nieto, it was felt he could be discharged on 10 days of oral levaquin and zyvox. - Time spent with patient Time with patient DS: Greater than 30 minutes Diagnosis - Discharge Diagnosis (1) Acute epididymo-orchitis Status: Acute (2) Hypertension Status: Chronic (3) Antibiotic-associated diarrhea Status: Resolved (4) Colorectal cancer Status: Acute Specialty Discharge - Follow Up or Referrals Follow up with: Sebastián Ramirez MD [Physician] - Malcolm Akbar MD [Physician] - 2 Weeks Storm Cleveland MD [Physician] - Discharge Plan - Discharge Data Disposition: Home Health Service Condition at Discharge: Stable Discharge Diet: advance to your usual diet Activity: resume usual activities as tolerated Contact your physician if you experience:: fever over 101, Bleeding, pain uncontrolled by pain medications - Discharge Medications New Levofloxacin Tab [Levaquin Tab] 500 mg PO Q24H #10 tablet HYDROcodone/ACETAMIN 10-325 [[place] 10-325] 1 tablet PO Q4H PRN #20 tablet PRN Reason: Pain Moderate (4-7) Linezolid Tab [Zyvox Tab] 600 mg PO Q12HR #20 tablet Polyethylene Glycol Powder [Miralax] 17 gm PO DAILY #30 traZODone [Desyrel] 50 mg PO BEDTIME PRN #30 tablet PRN Reason: Insomnia Continue [place] 3 Acid Ethyl Esters [Lovaza] 2 gm PO BID Gabapentin Cap/Tab [Neurontin Cap/Tab] 600 mg PO Q8H tablet Tamsulosin [Flomax] 0.4 mg PO BID capsule Methocarbamol Tab [Robaxin Tab] 750 mg PO TID Atorvastatin [Lipitor] 40 mg PO DAILY Acetaminophen Tab [Tylenol Tab] 500 mg PO Q6HR PRN PRN Reason: Pain Celecoxib [Celebrex] 200 mg PO DAILY PRN PRN Reason: arthritis Finasteride [Proscar] 5 mg PO DAILY tablet Discontinued Tramadol HCl [Tramadol Tab] 1 tablet PO TID PRN PRN Reason: Pain Lisinopril/Hydrochlorothiazide [Lisinopril-Hctz 20-12.5 mg Tab] 1 each PO DAILY Furosemide 20 mg PO DAILY - Follow Up or Referral Follow Up: Sebastián Ramirez MD [Physician] - Malcolm Akbar MD [Physician] - 2 Weeks Storm Cleveland MD [Physician] - 1 Week - Forms/Instructions Exam - Constitutional Vitals: Period Temp Pulse Resp BP Sys/Mccray Pulse Ox Last 24 Hr 97.4 F-98.6 F 78-99 18-20 112-147/64-76 92-96 General appearance: no acute distress - Head Head exam: Present: normocephalic, atraumatic - Eye Eye exam: Present: EOMI Pupils: Present: WERNER - ENT ENT exam: Present: normal exam - Neck Neck exam: Present: normal inspection - Respiratory Respiratory exam: Present: clear to auscultation bilaterally - Cardiovascular Cardiovascular exam: Present: regular rate and rhythm - GI/Abdominal GI/Abdominal exam: Present: normal bowel sounds, soft. Absent: mass, tenderness - Extremities Exam Extremities exam: Absent: calf tenderness, edema - Neurological Exam Neurological exam: Present: alert, oriented X3, CN II-XII intact. Absent: motor sensory deficit - Psychiatric Psychiatric exam: Present: normal affect, normal mood. Absent: agitated, anxious - Skin Skin exam: Present: warm, dry Discharge Results Procedures and tests throughout hospitalization: Pending Orders 02/20/17 Occult Blood, Stool Stat 02/25/17 13:14 Abscess Culture Routine Anaerobic Culture Routine 02/28/17 15:30 Vancomycin,Trough Routine Labs on day of discharge: Preliminary micro results at discharge 02/25/17 13:14 Abscess Culture - Preliminary Scrotum Gram Positive Cocci DS: Provider Date of admission: 02/16/17 21:13 Primary care physician: . No PCP Attending physician on admission: Breana Jones MD Consults: 02/16/17 21:13 Consult to Physician [CONS] Routine Comment: UTI, neurogenic bladder Consulting Provider: Storm Cleveland Person Notified: MD chan 02/17/17 00:04 Consult to Dietitian [CONS] Routine Reason for Dietitian: Other Consult Comment: wt loss 02/17/17 12:18 Consult to Physical Therapy [CONS] Routine Reason for Physical Therapy: Evaluate and Treat 02/17/17 12:21 Consult to Physician [CONS] Routine Comment: chronic lower back pain Consulting Provider: Alessandra Tena Consult to Specialist Group: Pain Management When should Consulting Provider be notified: Now Person Notified: KASIE Date Notified: 02/17/17 Time Notified: 10:24 02/18/17 16:30 Consult to Physician [CONS] Routine Comment: ? rectal bleeding Consulting Provider: Joce Salinas Person Notified: CAROLYN ROSS Date Notified: 02/19/17 Time Notified: 08:49 02/19/17 15:37 Consult to Physician [CONS] Routine Comment: Consulting Provider: Laine Nieto Person Notified: SARAH Date Notified: 02/20/17 Time Notified: 09:46 Consult Notification Comment: 02/25/17 13:37 Consult to Physician [CONS] Routine Comment: Rectal cancer Consulting Provider: Malcolm Akbar Consulting Provider Notified: No When should Consulting Provider be notified: In am 02/25/17 13:40 Consult to Physician [CONS] Routine Comment: rectal CA Consulting Provider: Sebastián Ramirez Consulting Provider Notified: No When should Consulting Provider be notified: In am 02/27/17 07:53 Consult to Case Mgmt/Social Srvs [CONS] Routine Reason for Case Mgmt/Social Srvs: Home Health Consult Comment: needs daily wound care 02/27/17 11:07 Consult to Pharmacy [CONS] Routine Reason for Pharmacy Consult: Dose/Manage Vancomycin Discharging clinician: Sai Sharp Expected date of discharge: 02/28/17
[2017-02-28] MEDS ORDERED: LEVOFLOXACIN 500 MG TABLET PO SCH (13:00)
[2017-02-28] MEDS ORDERED: LINEZOLID 600 MG TABLET PO SCH (13:00)
== END 2017-02-28 18:15 | disposition home health service (06) | DRG 699 ==
LOC: N.ED 19:15 → SUATTDRO 21:13 → N.EDINP 21:13 → N.5E 22:04
PROVIDERS: ADMIT Family Medicine; ATTEND Hospitalist
PROC: COLONBX (2017-02-24 12:35)

== ENCOUNTER 2017-05-11 09:04 | Inpatient (IN) ==
[2017-05-11] MEDS ORDERED: ACETAMINOPHEN 325 MG TABLET PO PRN (10:04)
[2017-05-11] MEDS ORDERED: PROMETHAZINE INJ 25 MG in SODIUM CHLORIDE 0.9% 50 ML IV PRN (10:04)
[2017-05-11] MEDS ORDERED: LACTULOSE 20 GM/30 ML UDCUP PO PRN (10:04)
[2017-05-11] MEDS ORDERED: ALUMINUM/MAGNES/SIMETH MAX STR 30 ML UDCUP PO PRN (10:04)
[2017-05-11] MEDS ORDERED: diphenhydrAMINE CAP 25 MG CAPSULE PO PRN (10:04)
[2017-05-11] MEDS ORDERED: traMADol 50 MG TABLET PO PRN (10:04)
[2017-05-11] MEDS ORDERED: LOPERAMIDE 2 MG CAPSULE PO PRN ×2 (10:04)
[2017-05-11] MEDS ORDERED: chlorproMAZINE INJ 50 MG in SODIUM CHLORIDE 0.9% 100 ML IV PRN (10:04)
[2017-05-11] MEDS ORDERED: MYLANTA/LIDO VISC 2:1 300 ML BOTTLE SWISH/SWAL PRN (10:04)
[2017-05-11] MEDS ORDERED: guaiFENesin 200 MG/10 ML UDCUP PO PRN (10:04)
[2017-05-11] MEDS ORDERED: ALPRAZolam 0.25 MG TABLET PO PRN (10:04)
[2017-05-11] MEDS ORDERED: chlorproMAZINE INJ 25 MG in SODIUM CHLORIDE 0.9% 100 ML IV PRN (10:04)
[2017-05-11] MEDS ORDERED: MAGNESIUM HYDROXIDE SUSP 30 ML UDCUP PO PRN (10:04)
[2017-05-11] MEDS ORDERED: BENZTROPINE 2 MG/2 ML AMP IV PRN (10:04)
[2017-05-11] MEDS ORDERED: MYLANTA/LIDO VISC 2:1 300 ML BOTTLE SWISH/SPIT PRN (10:04)
[2017-05-11] MEDS ORDERED: chlorproMAZINE 25 MG TABLET PO PRN (10:04)
[2017-05-11] MEDS ORDERED: MORPHINE 2 MG/1 ML SYRINGE IV PRN (10:56)
[2017-05-11] MEDS ORDERED: PNEUMOCOCCAL VACCINE (13 VALENT) 0.5 ML SYRINGE IM ONE (10:58)
[2017-05-11] MEDS: PIPERACILLIN/TAZOBACTAM 3,375 MG in SODIUM CHLORIDE 0.9% 100 ML IV SCH ×2 (11:20→19:54)
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
--- NOTE | 2017-05-11 15:00 | EKG Report ---
Stationary ECG Study [facility] Test Date: 05/11/2017 3:01 PM Pat Name: ALEJANDRO MENA Department: Room: 444 Gender: M [employer]: ELISA : 1960 Requested by: Amelia Tran Order Number: [id number] Reading MD: MAYA FRANKLIN Intervals [place] Rate: 110 P: 51 MN: 160 QRS: 37 QRSD: 95 T: 44 QT: 319 QTc: 384 Interpretive Statements SINUS TACHYCARDIA Electronically Signed On 05-11-17 19:29:24 CDT by MAYA FRANKLIN [email or web address]
[2017-05-11] MEDS: fentaNYL 25 MCG/HR PATCH TRANSDERM SCH (15:03)
[2017-05-11] MEDS: GABAPENTIN 600 MG TABLET PO SCH ×2 (15:03→21:15)
[2017-05-11] MEDS: METHOCARBAMOL 750 MG TABLET PO SCH ×2 (15:03→21:15)
[2017-05-11] MEDS: metroNIDAZOLE INJ 500 MG in PREMIX 1 EACH IV SCH (15:04)
[2017-05-11] MEDS: ONDANSETRON 4 MG/2 ML VIAL IV PRN (15:07)
[2017-05-11] MEDS: HYDROmorphone 2 MG/1 ML VIAL IV PRN ×2 (15:08→21:33)
[2017-05-11 15:41] LABS: Apearance,Urine CLOUDY (Clear); Bacteria,Urine Many /HPF (Few); Blood, Urine Small mg/dL (Negative); Glucose,Urine (UA) Negative (Negative); Ketones,Urine Negative (Negative); Mucus,Urine Moderate /LPF (Occasional); Nitrite,Urine Positive (Negative); Protein,Urine 30 MG/DL; RBC,Urine 7 /HPF (0-4); Urine Color Amber (Yellow); Urine Specific Gravity 1.029 (1.001-1.035); WBC,Urine 102 /HPF (0-6)
[2017-05-11 15:43] LABS: Bilirubin,Urine Small mg/dL (Negative)
[2017-05-11] MEDS: TAMSULOSIN 0.4 MG CAPSULE PO SCH (21:15)
[2017-05-12] MEDS: metroNIDAZOLE INJ 500 MG in PREMIX 1 EACH IV SCH ×5 (00:01→22:49)
[2017-05-12] MEDS: PIPERACILLIN/TAZOBACTAM 3,375 MG in SODIUM CHLORIDE 0.9% 100 ML IV SCH ×2 (04:01→17:46)
[2017-05-12] MEDS: GABAPENTIN 600 MG TABLET PO SCH ×3 (05:02→22:48)
[2017-05-12] MEDS: HYDROmorphone 2 MG/1 ML VIAL IV PRN ×8 (05:12→22:48)
--- NOTE | 2017-05-12 07:32 | Oncology Progress Note ---
Assessment and Plan (1) Rectal abscess Status: Acute Current Visit: Yes (2) Intractable pain Status: Acute Current Visit: Yes (3) Colorectal cancer Status: Acute Current Visit: No (4) Metastatic rectal cancer Status: Acute Current Visit: Yes Oncology Subjective PN Interval history: Mr. Gloria seems to be doing much better today. The fentanyl patch and Dilaudid provide good pain control. His fever curve has improved. He has not had any fevers in the last [address] Ramirez with general surgery plans to take him to the operating room today to do an examination under anesthesia. I am assuming that if an area of fluctuance is found he will do an I&D at that time as well. There is a possibility that he may need a diverting ostomy depending on the evaluation by Dr. Ramirez today. We are also scheduling him to have a CT scan today as well. I will keep him on IV Zosyn and Flagyl for now. We will follow-up blood cultures. I will recheck a CBC in the morning. Exam - Constitutional Vitals: Period Temp Pulse Resp BP Sys/Mccray Pulse Ox Last 24 Hr 96.7 F-103.6 F 82-117 20-24 103-128/55-65 92-93 General appearance: normal weight, no acute distress - Head Head Exam: Present: normocephalic, atraumatic - Eye Eye Exam: Present: EOMI Pupils: Present: PERRL - ENT ENT exam: Present: normal exam, normal oropharynx - Neck Neck exam: Absent: lymphadenopathy, thyromegaly - Respiratory Respiratory exam: Present: CTAB. Absent: wheezes - Cardiovascular Cardiovascular exam: Present: RRR. Absent: JVD - GI/Abdominal GI/Abdominal exam: Present: soft. Absent: ascites, distended, mass - Neurological Exam Neurological exam: Present: alert, oriented X3 - Psychiatric Psychiatric exam: Present: normal affect, normal mood - Skin Skin exam: Present: warm, dry Quality Measures - VTE Contraindication to Pharmacological VTE Prophylaxis: High Risk of Bleeding
--- NOTE | 2017-05-12 10:01 | Operative Note ---
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 Rectal exam under anesthesia 2. Incision and drainage of a rectal abscess 3. Placement of draining seton and Martinez drain and perirectal abscess and fistula Findings There was necrotic tumor cavity with malignant fistula between the rectal wall and the anterior portion of the perineum. Once incising the skin there was large amount of liquid stool diarrhea that leaked out of the cavity and a large cavity was encountered with necrotic tumor present with a fistula to the rectum. A [place] drain was placed with counterincisions and also a Martinez drain was placed of the draining seton through the fistula. This appeared to be something that would require diverting colostomy to manage the wound and continue treatment for his cancer Complications None apparent Specimen None Anesthesia General laryngeal mask anesthesia Blood loss Minimal Indications Rectal cancer with perirectal abscess Description of procedure The patient was taken to the operating room and transferred to the operating table in the supine position. Pressure points were padded and SCDs were placed lower extremities. General LMA anesthesia was administered. The buttocks was prepped with Betadine and draped sterilely. Timeout was called. Rectal exam under anesthesia revealed a large tumor cavity with possible fistula to the subcutaneous tissues. There is an area of induration and erythema that was incised and a large amount of liquid diarrhea stool port out of the left gluteal region after the incision was made. Digital examination then revealed a large necrotic fistula cavity with necrotic tumor present over the rectum. This communicated with the rectum anteriorly under the peritoneum. Two counterincisions were made and [place] drains were placed in a [place] drain was also placed through the rectal wall through the fistula that was malignant in an attempt to L adequately drain this area. There was no necrotizing infectious process just necrotic tumor appearance present in the rectum itself. This was irrigated and packed with Dakin's wet-to-dry dressing. This appeared to be slowing that would require diverting colostomy to heal the wound and prevent the patient from becoming septic while he is getting treated for his rectal cancer. The patient was awake from anesthesia and transferred to recovery. Postoperative plan Laparoscopic diverting colostomy tomorrow and wound dressing change tomorrow in the OR Implants: martinez drains x2 dakins soaked gauze packing Anesthesia: ALEXEYA Surgeon / Physician: Sebastián Ramirez Estimated blood loss: minimal Specimens: none sent Condition: stable Disposition: PACU Discharge Plan - Discharge Medications No Action Gabapentin Cap/Tab [Neurontin Cap/Tab] 600 mg PO Q8H tablet Tamsulosin [Flomax] 0.4 mg PO BID capsule Methocarbamol Tab [Robaxin Tab] 750 mg PO TID Finasteride [Proscar] 5 mg PO DAILY tablet HYDROcodone/ACETAMIN 10-325 [[place] 10-325] 1 tablet PO Q4H PRN #20 tablet PRN Reason: Pain Moderate (4-7) Ondansetron Tab [Zofran Tab] 8 mg PO Q6H PRN PRN Reason: Nausea - Follow Up or Referral - Forms/Instructions
--- NOTE | 2017-05-12 10:07 | Anesthesia Post-Op ---
Anesthesia Post OP - Post Ansesthetic Evaluation Patient seen in post op: Yes Resp: within normal limits CV: within normal limits Mental: within normal limits Temp: within normal limits Silw-Dh-Ajd[place]usxo: within normal limits Nausea and Vomiting: within normal limits Pain: within normal limits
[2017-05-12] MEDS ORDERED: MIDAZOLAM 2 MG/2 ML VIAL ONE (10:10)
[2017-05-12] MEDS ORDERED: SEVOFLURANE 1 UNIT/15 MINUTE INH ONE (10:10)
[2017-05-12] MEDS ORDERED: PROPOFOL 200 MG/20 ML VIAL IV ONE (10:10)
[2017-05-12] MEDS ORDERED: ONDANSETRON 4 MG/2 ML VIAL ONE (10:11)
[2017-05-12] MEDS ORDERED: LACTATED RINGERS 1,000 ML IV ONE (10:11)
[2017-05-12] MEDS ORDERED: fentaNYL 100 MCG/2 ML VIAL ONE (10:11)
[2017-05-12] MEDS ORDERED: ONDANSETRON 4 MG/2 ML VIAL IV PRN (10:17)
[2017-05-12] MEDS ORDERED: DEXTROSE 50% 25 GM/50 ML SYRINGE IV PRN (11:17)
[2017-05-12] MEDS ORDERED: GLUCAGON 1 MG VIAL IM PRN (11:17)
--- NOTE | 2017-05-12 14:43 | CT Report ---
CT abdomen pelvis w con Indication: Rectal cancer, concern for perirectal abscess Comparison: CT abdomen pelvis dated February 25, 2017 Technique: Multiple axial tomographic images of the abdomen and pelvis were obtained after the administration of 100 cc Omnipaque 350 intravenous contrast. Findings: Mild right basilar atelectasis. Interval development of 7 mm subpleural nodule along the inferolateral right lobe of the lung concerning for metastatic disease. Interval increased hepatic metastatic disease as evidenced by significantly increased number. Largest probable metastatic lesion is within the left lobe and measures up up to 4.7 cm in largest axial dimension. The gallbladder is grossly unremarkable. The pancreas is grossly unremarkable. The spleen is grossly unremarkable. The bilateral adrenal glands are grossly unremarkable. The bilateral kidneys are grossly unremarkable. The urinary bladder is incompletely distended. A drainage catheter is noted within the perineum. There is suspicion for perforation of the anterior aspect of the distal rectum and anus with associated air-fluid collection in this region measuring up to 6 cm in largest axial dimension. There is significant fat stranding as well as moderate amount of air demonstrated within the left perineum with extension to involve the left inguinal canal and left abdominal wall. 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 Perirectal soft tissue stranding noted suggestive of inflammation. There is no evidence of gastrointestinal obstruction or acute appendicitis. Grossly stable prominence of michael hepatis node. IVC filter demonstrated. Osseous structures appear grossly unchanged. Postsurgical change of the right acetabulum and lumbar spine with redemonstration of old deformity of the right pelvis. IMPRESSION: A drainage catheter is noted within the perineum. There is suspicion for perforation of the anterior aspect of the distal rectum and anus with associated air-fluid collection in this region measuring up to 6 cm in largest axial dimension. There is significant fat stranding as well as moderate amount of air demonstrated within the left perineum with extension to involve the left inguinal canal and left abdominal wall. 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 Perirectal soft tissue stranding noted suggestive of inflammation. Worsened hepatic metastatic disease. Interval development of 7 mm subpleural nodule along the inferolateral right lobe of the lung concerning for metastatic disease. Findings discussed with Dr. Akbar at time of dictation. The CT exam was performed using one or more of the following dose reduction techniques: Automated exposure control, adjustment of the mA and/or kV according to patient size, or use of iterative reconstruction technique. PROCEDURE INTERPRETED AT [facility] DEPARTMENT OF RADIOLOGY Final Report Signed by: Dr Drew Braun
--- NOTE | 2017-05-12 16:18 | Urology Consultation ---
History of Present Illness - Data of Consult Consult date: 05/12/17 - Consult Narrative History of present illness: Mr. Gloria is a 57 year old male The patient is known to me. He has a history of urinary retention and has been on medical management for BPH but is still been unable to void. He has been on intermittent self-catheterization and the nurses have recently had trouble getting the coud catheter in. On the recommended we stop intermittent catheterization and put a Caruso in for the present time and I was able to pass a 14 coud catheter without difficulty and I will leave this on gravity drainage. CC: Malcolm Akbar MD - Home Medications and Allergies Home Medications: Home Medications Medication Instructions Recorded Confirmed Type Methocarbamol Tab [Robaxin Tab] 750 mg PO TID 01/23/17 05/11/17 History Finasteride [Proscar] 5 mg PO DAILY tablet 01/29/17 05/11/17 Rx Gabapentin Cap/Tab [Neurontin 600 mg PO Q8H tablet 01/29/17 05/11/17 Rx Cap/Tab] Tamsulosin [Flomax] 0.4 mg PO BID capsule 01/29/17 05/11/17 Rx HYDROcodone/ACETAMIN 10-325 [[place] 1 tablet PO Q4H PRN #20 tablet 02/28/1705/11 Rx 10-325] Ondansetron Tab [Zofran Tab] 8 mg PO Q6H PRN 05/11/17 05/11/17 History Allergies/Adverse Reactions: Allergies Allergy/AdvReac Type Severity Reaction Status Date / Time No Known Allergies Allergy Verified 07/24/15 08:32 Exam - Constitutional Vitals: Period Temp Pulse Resp BP Sys/Mccray Pulse Ox Last 24 Hr 97.2 F-101.6 F 89-117 16-24 100-130/55-86 90-98
[2017-05-12] MEDS: METHOCARBAMOL 750 MG TABLET PO SCH ×3 (16:22→22:48)
[2017-05-12] MEDS: TAMSULOSIN 0.4 MG CAPSULE PO SCH ×2 (16:22→22:48)
[2017-05-12] MEDS: LACTATED RINGERS 1,000 ML IV SCH (16:42)
[2017-05-12] MEDS: TEMAZEPAM 7.5 MG CAPSULE PO PRN (22:48)
[2017-05-13] MEDS: LACTATED RINGERS 1,000 ML IV SCH ×5 (00:19→18:46)
[2017-05-13] MEDS: PIPERACILLIN/TAZOBACTAM 3,375 MG in SODIUM CHLORIDE 0.9% 100 ML IV SCH ×4 (01:29→22:56)
[2017-05-13 05:48] LABS: Basophils % 0.3 % (0.0-0.8); Eosinophils # 0.4 10*3/uL (0.0-0.87); Eosinophils % 6.1 % (0.00-10.9); Hematocrit 24.2 VOL% (42.0-52.0); Hemoglobin 7.3 GM/DL (14.0-18.0); Immature Granulocytes % 1.4 %; Lymphocytes # 0.2 10*3/uL (1.4-4.0); Lymphocytes % 2.2 % (21.2-54.2); Mean Corpuscular HGB Conc 30.2 GM/DL (32-36); Mean Corpuscular Hemoglobin 23 PG (27-34); Mean Corpuscular Volume 76.6 FL (87-102); Mean Platelet Volume 11.4 FL (9.6-12.0); Monocytes # 0.7 10*3/uL (0.11-0.8); Neutrophils # 5.6 10*3/uL (1.4-7.4); Platelet Count 285 T/CUMM (130-400); Red Blood Count 3.16 MC/CUMM (3.8-5.5); Red Cell Distribution Width 21.9 % (9.3-17.3); White Blood Count 6.9 T/CUMM (4-12)
[2017-05-13 06:09] LABS: Band Neutrophils 13 % (0-10); Eosinophils 6 % (0-10); Lymphocytes 1 % (20-55); Segmented Neutrophils 73 % (50-85); Total Cells Counted 100
[2017-05-13 06:10] LABS: Hypochromasia 1+; Microcytosis 1+
[2017-05-13 06:11] LABS: Burr Cells Slight; Elliptocytes 1+; Platelet Estimate Normal
[2017-05-13 06:15] LABS: Albumin 1.5 G/DL (3.4-5.0); Bilirubin,Total 0.4 MG/DL (0.2-1.0); Calcium 7.5 MG/DL (8.5-10.1); Osmolality,Calculated 262.5 MOS/KG (273-304); Potassium 4.1 MMOL/L (3.5-5.1); Total Protein 4.8 G/DL (6.4-8.3)
--- NOTE | 2017-05-13 06:20 | Event Note ---
This patient had an extensive infection related to malignant fistula from his rectum into the perineum and buttock region. CT scan was done after surgery which showed an additional area anterior to the rectum that was not drained with the procedure yesterday. There is also a lot of air in the subcutaneous tissues extending up onto the left abdominal wall above the fascia. The patient has no tenderness here or evidence of necrotizing soft tissue infection this is likely related to surgery and some infection that spread up and there but is being treated with antibiotics. I recommended a diverting colostomy to prevent sepsis in the future and over this area where the fecal stream is contaminating this tissue. I will also change the dressings and try to get this area anterior to the rectum drained adequately.
[2017-05-13] MEDS: HYDROmorphone 2 MG/1 ML VIAL IV PRN ×5 (06:26→20:13)
[2017-05-13] MEDS: GABAPENTIN 600 MG TABLET PO SCH ×3 (07:04→22:58)
[2017-05-13] MEDS: metroNIDAZOLE INJ 500 MG in PREMIX 1 EACH IV SCH ×2 (07:12→17:34)
--- NOTE | 2017-05-13 07:41 | Urology Progress Note ---
Urology - PN: Subj Interval history: I plan to leave the Caruso catheter in for the next few days until the patient is over surgery and then go back to intermittent catheterization Exam - Constitutional Vitals: Period Temp Pulse Resp BP Sys/Mccray Pulse Ox Last 24 Hr 96.6 F-100.1 F 89-110 16-20 100-130/55-86 90-98 Results - Labs CBC & BMP: 05/13/17 04:00 05/13/17 04:00
[2017-05-13] MEDS ORDERED: SODIUM CHLORIDE 0.9% 250 ML IV PRN (07:49)
--- NOTE | 2017-05-13 07:56 | Oncology Progress Note ---
Assessment and Plan (1) Rectal abscess Status: Acute Current Visit: Yes (2) Intractable pain Status: Acute Current Visit: Yes (3) Colorectal cancer Status: Acute Current Visit: No (4) Metastatic rectal cancer Status: Acute Current Visit: Yes (5) Iron deficiency anemia Status: Acute Current Visit: Yes (6) Anemia associated with chemotherapy Status: Acute Current Visit: Yes Oncology Subjective PN Interval history: Mr. Gloria seems to be doing somewhat better now after having incision and drainage of the perirectal abscess area that was created by a rectal fistula. He essentially was having stool or into the tumor cavity and was tracking through the soft tissues around the rectum. He now has drains in place and is scheduled to have a bypassing ileostomy done today by Dr. Ramirez. His CT scan yesterday showed air tracking up the anterior abdomen and the anterior inguinal region. This was predominately seen on the left. Dr. Ramirez will evaluate these areas during the operating room today. His CT scan also confirmed worsening liver metastases than previously known. We knew he had 2 separate liver metastases but the CT scan yesterday showed new lesions that were not identified previously. I do not think this points toward progression of disease while on chemotherapy but I do think this takes away are consideration for curative treatment and now puts this down the road of only palliative therapy. Depending on how he recovers from his current issues from his rectal fistula, we may be able to target these liver lesions with Y [address]. He is not a candidate for surgical resection as there are too numerous liver lesions and involve both lobes. For now they are focuses on his rectal fistula and management of this. I am unsure if radiation will want to resume therapy given the issues going on with the fistula. We may do only palliative chemotherapy from this point forward. It is worth noting that he had 1 dose of Avastin 2 weeks ago I do not think this will delay his healing with just 1 dose. I will give him 2 units of blood after his surgery today since his hemoglobin now is only 7.4. I also likely give him an iron infusion tomorrow. I anticipate he will remain in the hospital for a few more days. We will continue with Zosyn and Flagyl. Exam - Constitutional Vitals: Period Temp Pulse Resp BP Sys/Mccray Pulse Ox Last 24 Hr 96.6 F-100.1 F 89-110 16-20 100-130/55-86 90-98 General appearance: normal weight, no acute distress - Head Head Exam: Present: normal inspection, normocephalic, atraumatic - Eye Eye Exam: Present: EOMI Pupils: Present: PERRL - ENT ENT exam: Present: normal exam, normal oropharynx - Neck Neck exam: Absent: lymphadenopathy, thyromegaly - Respiratory Respiratory exam: Present: CTAB. Absent: wheezes - Cardiovascular Cardiovascular exam: Present: RRR. Absent: irregular rhythm, JVD - GI/Abdominal GI/Abdominal exam: Present: soft. Absent: ascites, distended, firm, mass - Neurological Exam Neurological exam: Present: alert, oriented X3 - Psychiatric Psychiatric exam: Present: normal affect, normal mood - Skin Skin exam: Present: warm, dry Results - Labs CBC & BMP: 05/13/17 04:00 05/13/17 04:00 Lab Results: I have reviewed the past 24 hour labs - Diagnostic Findings Procedure: CT Abdomen and Pelvis: image reviewed by me, report reviewed by me Quality Measures - VTE Contraindication to Pharmacological VTE Prophylaxis: High Risk of Bleeding
[2017-05-13] MEDS: TAMSULOSIN 0.4 MG CAPSULE PO SCH ×2 (09:44→20:14)
[2017-05-13] MEDS: METHOCARBAMOL 750 MG TABLET PO SCH ×3 (09:44→20:14)
[2017-05-13] MEDS ORDERED: SUCCINYLCHOLINE 200 MG/10 ML VIAL ONE (09:50)
[2017-05-13] MEDS ORDERED: NEOSTIGMINE 10 MG/10 ML VIAL ONE (09:50)
[2017-05-13] MEDS ORDERED: ROCURONIUM 100 MG/10 ML VIAL IV ONE (09:50)
[2017-05-13] MEDS ORDERED: METOPROLOL TARTRATE 5 MG/5 ML VIAL IV ONE (09:50)
[2017-05-13] MEDS ORDERED: ONDANSETRON 4 MG/2 ML VIAL ONE (09:50)
[2017-05-13] MEDS ORDERED: LIDOCAINE 1% 5 ML VIAL ONE (09:50)
[2017-05-13] MEDS ORDERED: GLYCOPYRROLATE 0.4 MG/2 ML VIAL ONE (09:50)
[2017-05-13] MEDS ORDERED: PROPOFOL 200 MG/20 ML VIAL IV ONE (09:50)
[2017-05-13] MEDS ORDERED: TISSUE ADHESIVE 1 EACH APPLICATOR TOP ONE (12:53)
--- NOTE | 2017-05-13 13:37 | Operative Note ---
Date of procedure: 05/13/17 Pre-op diagnosis: Malignant perirectal fistula with abscess Post-op diagnosis: same Procedure: Preoperative diagnosis Malignant rectal fistula with abscess Postoperative diagnosis Same Procedures performed 1. Laparoscopic diverting sigmoid colostomy 2. Dressing change under anesthesia 22 modifier Findings The patient's body habitus prohibited a loop colostomy so an end colostomy was performed in the sigmoid colon which required extensive mobilization and because of the patient's body habitus and some scarring in the sigmoid colon was took more than and Marcela drains were replaced. I explored an area over the left groin where the patient has significant subcu emphysema on CT scan and there is no necrotic twice usual length of time. The area in the scrotum and perineum was re-drained and the area on the left scrotum and inguinal region was explored the fascia due to concern for causing soft tissue infection on CT. This tissue appeared viable and there is no dishwater fluid or evidence of infection in this area. A Marcela drain connected this area as a counterincision to the perineal incisions. Complications None apparent Specimen None Anesthesia General endotracheal Blood loss Minimal Indications Malignant rectal fistula with significant abscess formation Description of procedure The patient was taken to the operating room and transferred to the operating table in the supine position. Pressure points were padded and SCDs placed lower extremities. General endotracheal anesthesia was administered. The patient was placed in lithotomy position will try not to have the in the abdomen and perineum were prepped and draped sterilely. Preoperative antibiotics were administered and a timeout was performed. Laparoscopy was performed with a supraumbilical incision. Incision was made with a 15 blade scalpel and a Diogo clamp was used to grasp the umbilical stalk. Veress needle was used into the peritoneal cavity confirmed by double click technique. Aspiration was negative. Saline drop test confirmed intraperitoneal location. The abdomen was insufflated on high flow insufflation to 15 mmHg with initial pressure of 4 mmHg. The Veress needle was removed and a 5 mm trocar was placed blindly. Laparoscope was inserted. Diagnostic laparoscopy revealed no evidence of Veress needle or trocar injury. The sigmoid colon was plastered to the sidewall of the abdomen and the pelvis and it looks like there have been some adhesive disease here. For this reason 2 additional 5 mm trochars were placed in the right abdomen and the sigmoid colon was mobilized. This took more than twice usual length of time because of the adhesions into the abdominal wall in this region and also difficulty finding the left ureter. Eventually left ureter was found and preserved. The sigmoid colon was medialized dissection was performed. By mobilizing the white line of T[place]t and lateral to medial dissection was performed. I tried to pull a loop colostomy up through an incision that was made by removing a circular piece of skin and subcutaneous fat down to the fascia. The fascial extension was continued until the bowel was completely able to be pulled through without any tension. Because of the significant amount of subcutaneous fat in this patient was unable to pull a loop colostomy up to the skin level without significant tension even after complete mobilization of the sigmoid colon. Additional length was achieved by dividing the bowel intracorporeally and dividing the mesentery vertically down to the peritoneal reflection of the mesentery and this allowed an end colostomy to able to reach to the abdominal wall skin without any tension. This was all done intracorporeally and a cruciate incision had been made in the fascia which allowed the sigmoid colon to reach through to the abdominal wall skin. This also added additional length of the procedure which also may take significantly longer than usual. The colostomy was able to be pulled appear without tension. The trochars were removed from the abdomen after the CO2 was released. The skin incisions were closed with 4- 0 Monocryl skin glue. The incisions were dressed sterilely and the ostomy was matured with 3-0 Vicryl sutures. An ostomy appliance was placed. I then went to the anal portion of the procedure where the perineal and scrotal abscesses were reexamined. An additional counterincision was made in the left groin where there was significant soft tissue emphysema on the CT scan done by oncology yesterday. There is no dishwater fluid here or necrotic tissue that needed to be removed. There is no stool contamination from the fistula in this area. Marcela drains were then replaced to connect these incisions to assist with postoperative drainage. The wounds were all irrigated and packed with a Dakin's wet-to-dry dressing. On today's reexamination the anterior and left side of the rectum had basically completely disintegrated on the patient's chemoradiation and there was stool pouring into the gluteal wound and the perineal wounds. This was all irrigated out and packed. Patient was awakened from anesthesia and transferred to recovery. Postoperative plan Diet as tolerated Wound care to the perineal region Implants: marcela drains Anesthesia: LADONNA Surgeon / Physician: Sebastián Ramirez Estimated blood loss: minimal Specimens: none sent Condition: stable Disposition: PACU Results - Labs CBC & BMP: 05/13/17 04:00 05/13/17 04:00 Discharge Plan - Discharge Medications No Action Gabapentin Cap/Tab [Neurontin Cap/Tab] 600 mg PO Q8H tablet Tamsulosin [Flomax] 0.4 mg PO BID capsule Methocarbamol Tab [Robaxin Tab] 750 mg PO TID Finasteride [Proscar] 5 mg PO DAILY tablet HYDROcodone/ACETAMIN 10-325 [[place] 10-325] 1 tablet PO Q4H PRN #20 tablet PRN Reason: Pain Moderate (4-7) Ondansetron Tab [Zofran Tab] 8 mg PO Q6H PRN PRN Reason: Nausea - Follow Up or Referral - Forms/Instructions
[2017-05-13] MEDS ORDERED: fentaNYL 100 MCG/2 ML VIAL ONE (14:05)
[2017-05-13] MEDS ORDERED: SEVOFLURANE 1 UNIT/15 MINUTE INH ONE (14:05)
[2017-05-13] MEDS ORDERED: MIDAZOLAM 2 MG/2 ML VIAL ONE (14:05)
[2017-05-13] MEDS ORDERED: LACTATED RINGERS 2,000 ML IV ONE (14:06)
--- NOTE | 2017-05-13 14:17 | Anesthesia Post-Op ---
Anesthesia Post OP - Post Ansesthetic Evaluation Patient seen in post op: Yes Resp: within normal limits CV: within normal limits Mental: within normal limits Temp: within normal limits Oexu-Dd-Lmacjkida: within normal limits Nausea and Vomiting: within normal limits Pain: within normal limits
[2017-05-13] MEDS ORDERED: GLUCAGON 1 MG VIAL IM PRN (14:58)
[2017-05-13] MEDS ORDERED: DEXTROSE 50% 25 GM/50 ML VIAL IV PRN (14:58)
[2017-05-13] MEDS: ONDANSETRON 4 MG/2 ML VIAL IV PRN (15:19)
--- NOTE | 2017-05-13 18:44 | Event Note ---
General Surgery Progress Note Chief complaint This patient is a 57-year-old man with metastatic rectal cancer who was admitted with a malignant rectal fistula following chemoradiation that was treated with incision and drainage of the multiple abscesses related to the fistula followed by laparoscopic sigmoid colostomy on 05/13/2017 Interval history The patient is resting comfortably. He has not had anything to eat since surgery yet. His pain is well controlled. The patient is receiving 2 units of packed red blood cell transfusion for chronic anemia per his oncologist. Physical exam The patient is afebrile with normal vital signs He has expected postoperative tenderness. His ostomy is pink but nonproductive yet. Labs None new Imaging None new Assessment and plan Repeat lab work tomorrow following blood transfusion Diet as tolerated We will continue wound care and antibiotics for the perianal and scrotal wounds which should dry up now that his ostomy has been done.
[2017-05-13] MEDS: TEMAZEPAM 7.5 MG CAPSULE PO PRN (21:01)
[2017-05-14] MEDS: metroNIDAZOLE INJ 500 MG in PREMIX 1 EACH IV SCH ×3 (01:08→18:13)
[2017-05-14] MEDS: HYDROmorphone 2 MG/1 ML VIAL IV PRN ×5 (01:13→20:35)
[2017-05-14 05:38] LABS: Basophils % 0.3 % (0.0-0.8); Eosinophils # 0.3 10*3/uL (0.0-0.87); Eosinophils % 3.3 % (0.00-10.9); Hematocrit 28.9 VOL% (42.0-52.0); Immature Granulocytes % 3.1 %; Immature Granulocytes Absolute 0.32 #; Lymphocytes # 0.3 10*3/uL (1.4-4.0); Lymphocytes % 2.4 % (21.2-54.2); Mean Corpuscular HGB Conc 30.4 GM/DL (32-36); Mean Corpuscular Hemoglobin 24 PG (27-34); Mean Corpuscular Volume 79.2 FL (87-102); Mean Platelet Volume 11.5 FL (9.6-12.0); Monocytes # 0.8 10*3/uL (0.11-0.8); Monocytes % 8.1 % (1.7-12.7); Neutrophils # 8.5 10*3/uL (1.4-7.4); Neutrophils % 82.8 % (38.7-73.9); Platelet Count 331 T/CUMM (130-400); Red Blood Count 3.65 MC/CUMM (3.8-5.5); Red Cell Distribution Width 21.3 % (9.3-17.3)
[2017-05-14 05:43] LABS: Hemoglobin 8.8 GM/DL (14.0-18.0); White Blood Count 10.2 T/CUMM (4-12)
[2017-05-14] MEDS: GABAPENTIN 600 MG TABLET PO SCH ×4 (05:45→22:58)
[2017-05-14 05:55] LABS: Calcium 7.1 MG/DL (8.5-10.1); Magnesium 2.1 MG/DL (1.8-2.4); Potassium 4.1 MMOL/L (3.5-5.1)
[2017-05-14 06:11] LABS: Band Neutrophils 12 % (0-10); Eosinophils 2 % (0-10); Lymphocytes 7 % (20-55); Myelocytes 1 %; Platelet Estimate Normal; Promyelocytes 1 %; Segmented Neutrophils 75 % (50-85); Total Cells Counted 100
[2017-05-14] MEDS ORDERED: IRON DEXTRAN 25 MG in SYRINGE 1 EACH IV ONE (07:33)
[2017-05-14] MEDS ORDERED: SODIUM CHLORIDE 0.9% IV ONE (07:33)
[2017-05-14] MEDS ORDERED: IRON DEXTRAN IV ONE (07:33)
--- NOTE | 2017-05-14 07:37 | Oncology Progress Note ---
Assessment and Plan (1) Rectal abscess Status: Acute Current Visit: Yes (2) Intractable pain Status: Acute Current Visit: Yes (3) Colorectal cancer Status: Acute Current Visit: No (4) Metastatic rectal cancer Status: Acute Current Visit: Yes (5) Iron deficiency anemia Status: Acute Current Visit: Yes (6) Anemia associated with chemotherapy Status: Acute Current Visit: Yes Oncology Subjective PN Interval history: Mr. Gloria seems to be doing well today. He now has a diverting colostomy. He received 2 units of blood yesterday and hemoglobin did rise somewhat. I will give him IV iron today due to his long-standing iron deficiency. We will continue his Zosyn and Flagyl. His urine culture is growing out pansensitive E. coli. His blood cultures are no growth. Surgery will likely repack his wounds later today. At this point his hospital course is being directed by surgery and and his wound care. We will keep him here as long as they need us to. He is still needing IV narcotics for pain control but hopefully this will improve now that his stool is being diverted away from his rectal area. Exam - Constitutional Vitals: Period Temp Pulse Resp BP Sys/Mccray Pulse Ox Last 24 Hr 97 F-99.7 F 88-107 18-30 105-133/56-93 90-100 General appearance: normal weight, no acute distress - Head Head Exam: Present: normocephalic, atraumatic - Eye Eye Exam: Present: EOMI Pupils: Present: PERRL - ENT ENT exam: Present: normal exam, normal oropharynx - Neck Neck exam: Absent: lymphadenopathy, thyromegaly - Respiratory Respiratory exam: Present: CTAB. Absent: wheezes - Cardiovascular Cardiovascular exam: Present: RRR. Absent: JVD - GI/Abdominal GI/Abdominal exam: Present: soft. Absent: ascites, distended, mass - Neurological Exam Neurological exam: Present: alert, oriented X3 - Psychiatric Psychiatric exam: Present: normal affect, normal mood - Skin Skin exam: Present: warm, dry Results - Labs CBC & BMP: 05/14/17 04:37 05/14/17 04:37 Lab Results: I have reviewed the past 24 hour labs Quality Measures - VTE Contraindication to Pharmacological VTE Prophylaxis: High Risk of Bleeding
[2017-05-14] MEDS ORDERED: IRON DEXTRAN 1,000 MG in SODIUM CHLORIDE 0.9% 500 ML IV ONE (07:39)
--- NOTE | 2017-05-14 09:50 | Physician Query Form ---
CLICK EDIT DOCUMENT TO SELECT QUERY ANSWER --> OK --> SIGN Josy Bah RN [employer] W) [phone] (f) [phone] [email or web address] PROVIDERS: Make your selection(s) from the choices in EACH section by typing an "x" and enter comments in the comment section. Please use your independent medical judgment in providing your response. This request does not imply that any particular answer is desired or expected. CLINICAL INDICATORS: (Providers should not edit this section) Based on documentation of "His urine culture is growing out pansensitive E. coli ". Pt. treated with IV antibiotics. Based on the above, could you clarify the appropriate diagnosis, if significant , that supports the above abnormalities and additional evaluation, monitoring, and/or treatment rendered: (x ) Pt. treated for UTI due to Ecoli ( ) Pt. not treated for UTI ( ) Other, please specify: ( ) Clinically unable to determine COMMENTS: PLEASE ALSO DOCUMENT RESPONSE IN PROGRESS NOTES AND/OR DISCHARGE SUMMARY Use of terms such as suspected, likely, or probable (associated with a specific diagnosis that is being evaluated, monitored, or treated as if it exists) are acceptable and can be restated in the discharge summary if not ruled out. [facility]
[2017-05-14] MEDS: LACTATED RINGERS 1,000 ML IV SCH ×3 (11:05→18:18)
[2017-05-14] MEDS: fentaNYL 25 MCG/HR PATCH TRANSDERM SCH (11:10)
[2017-05-14] MEDS: PIPERACILLIN/TAZOBACTAM 3,375 MG in SODIUM CHLORIDE 0.9% 100 ML IV SCH (11:11)
[2017-05-14] MEDS: METHOCARBAMOL 750 MG TABLET PO SCH ×3 (11:15→20:39)
[2017-05-14] MEDS: TAMSULOSIN 0.4 MG CAPSULE PO SCH ×2 (11:24→20:34)
[2017-05-14] MEDS: SODIUM HYPOCHLORITE 0.25% IRRIG 473 ML BOTTLE TOP SCH (14:17)
[2017-05-14] MEDS: CHLORHEXIDINE 4% SOLN 118 ML BOTTLE TOP SCH (14:35)
[2017-05-14 14:54] LABS: Basophils # 0.1 10*3/uL (0.0-0.2); Basophils % 0.4 % (0.0-0.8); Eosinophils # 0.4 10*3/uL (0.0-0.87); Eosinophils % 2.3 % (0.00-10.9); Hematocrit 30.4 VOL% (42.0-52.0); Hemoglobin 9.2 GM/DL (14.0-18.0); Immature Granulocytes % 6.9 %; Immature Granulocytes Absolute 1.09 #; Lymphocytes # 0.5 10*3/uL (1.4-4.0); Lymphocytes % 2.9 % (21.2-54.2); Mean Corpuscular HGB Conc 30.3 GM/DL (32-36); Mean Corpuscular Hemoglobin 25 PG (27-34); Mean Corpuscular Volume 81.3 FL (87-102); Mean Platelet Volume 11.1 FL (9.6-12.0); Monocytes % 6.1 % (1.7-12.7); Neutrophils # 12.8 10*3/uL (1.4-7.4); Neutrophils % 81.4 % (38.7-73.9); Platelet Count 370 T/CUMM (130-400); Red Blood Count 3.74 MC/CUMM (3.8-5.5); Red Cell Distribution Width 21.6 % (9.3-17.3); White Blood Count 15.7 T/CUMM (4-12)
--- NOTE | 2017-05-14 16:06 | Event Note ---
General Surgery Progress Note Chief complaint This patient is a 57-year-old man with metastatic rectal cancer who was admitted with a malignant rectal fistula following chemoradiation that was treated with incision and drainage of the multiple abscesses related to the fistula followed by laparoscopic sigmoid colostomy on 05/13/2017 Interval history The patient is doing well overall. He is afebrile. His pain is slightly better controlled. He had some ostomy output yesterday evening but none this morning. He is tolerating diet without any nausea or vomiting. Physical exam The patient is afebrile with normal vital signs He has expected postoperative tenderness. His ostomy is pink but nonproductive yet. The perineal wounds are healing but there is still some stool contamination in the wounds. We are treating this with wet-to-dry dressing changes once a day. Labs Hemoglobin responded to 8.8 and repeat at 2 PM today was 9.2. White blood cell count is up some to 15,700. Imaging None new Assessment and plan Continue wound care and antibiotics
[2017-05-14 18:19] LABS: Band Neutrophils 3 % (0-10); Eosinophils 1 % (0-10); Lymphocytes 7 % (20-55); Metamyelocytes 1 %; Segmented Neutrophils 83 % (50-85); Total Cells Counted 100
[2017-05-14 18:40] LABS: Elliptocytes Few; Platelet Estimate Normal
[2017-05-14 18:41] LABS: Polychromasia Few
[2017-05-15] MEDS: HYDROmorphone 2 MG/1 ML VIAL IV PRN ×5 (00:19→19:42)
[2017-05-15] MEDS: PIPERACILLIN/TAZOBACTAM 3,375 MG in SODIUM CHLORIDE 0.9% 100 ML IV SCH ×3 (00:20→16:56)
[2017-05-15] MEDS: metroNIDAZOLE INJ 500 MG in PREMIX 1 EACH IV SCH ×3 (01:54→16:57)
[2017-05-15] MEDS: GABAPENTIN 600 MG TABLET PO SCH ×3 (06:31→21:38)
[2017-05-15] MEDS: LACTATED RINGERS 1,000 ML IV SCH ×4 (07:52→23:22)
--- NOTE | 2017-05-15 08:30 | Oncology Progress Note ---
Assessment and Plan (1) Rectal abscess Status: Acute Current Visit: Yes (2) Intractable pain Status: Acute Current Visit: Yes (3) Colorectal cancer Status: Acute Current Visit: No (4) Metastatic rectal cancer Status: Acute Current Visit: Yes (5) Iron deficiency anemia Status: Acute Current Visit: Yes (6) Anemia associated with chemotherapy Status: Acute Current Visit: Yes Oncology Subjective PN Interval history: Mr. Gloria is a 57-year-old white male with metastatic rectal cancer that we have been doing definitive therapy to the rectal lesion with concurrent chemotherapy and radiation. He presented to clinic earlier this week with a perirectal abscess. Surgery took him to the operating room and found that he had a large necrotic tumor with a fistula leading to multiple perirectal abscesses due to fecal contamination. [place] drains were placed throughout this region. He underwent a diverting colostomy 2 days ago. His ostomy bag is yet without any stool but he is producing flatulence. He still having some stool production from his rectal area which is most likely the remaining contents within the sigmoid stump. He is on Flagyl and Zosyn for antimicrobial coverage. His pain is improved in the rectal region. Hopefully his ostomy bag will begin to put out stool and he will not develop a postsurgical ileus which would be a very complex situation given his fragile state. I anticipate he will likely remain in the hospital for a few more days on IV antibiotics. He will probably need repacking of his abscess area of the early part of next week. I am going to consult physical therapy to just began working with him in bed. I do not think he is ready to get out of bed at this time due to the pain caused by his perirectal abscess. From a cancer standpoint, we have now found that he has numerous liver metastases. This changes our initial plan of possible curative treatment but our plan is to resume chemotherapy once he heals from his current situation. I am uncertain if we will restart radiation to the rectal region or not given his advanced disease and his current issues in the rectal region. This will be decided at a later time. Exam - Constitutional Vitals: Period Temp Pulse Resp BP Sys/Mccray Pulse Ox Last 24 Hr 96.8 F-98.2 F 93-114 16-20 116-121/66-75 92-96 General appearance: normal weight, no acute distress - Head Head Exam: Present: normocephalic, atraumatic - Eye Eye Exam: Present: EOMI Pupils: Present: PERRL - ENT ENT exam: Present: normal exam, normal oropharynx - Neck Neck exam: Absent: lymphadenopathy, thyromegaly - Respiratory Respiratory exam: Present: CTAB. Absent: wheezes - Cardiovascular Cardiovascular exam: Present: RRR. Absent: JVD - GI/Abdominal GI/Abdominal exam: Present: soft. Absent: ascites, distended, mass - Neurological Exam Neurological exam: Present: alert, oriented X3 - Psychiatric Psychiatric exam: Present: normal affect, normal mood - Skin Skin exam: Present: warm, dry Results - Labs CBC & BMP: 05/14/17 14:14 05/14/17 04:37 Lab Results: I have reviewed the past 24 hour labs Quality Measures - VTE Contraindication to Pharmacological VTE Prophylaxis: High Risk of Bleeding
[2017-05-15] MEDS: CHLORHEXIDINE 4% SOLN 118 ML BOTTLE TOP SCH (08:52)
[2017-05-15] MEDS: METHOCARBAMOL 750 MG TABLET PO SCH ×3 (08:52→21:37)
[2017-05-15] MEDS: TAMSULOSIN 0.4 MG CAPSULE PO SCH ×2 (08:52→21:38)
[2017-05-15] MEDS: SODIUM HYPOCHLORITE 0.25% IRRIG 473 ML BOTTLE TOP SCH (09:56)
--- NOTE | 2017-05-15 13:52 | Event Note ---
General Surgery Progress Note Chief complaint This patient is a 57-year-old man with metastatic rectal cancer who was admitted with a malignant rectal fistula following chemoradiation that was treated with incision and drainage of the multiple abscesses related to the fistula followed by laparoscopic sigmoid colostomy on 05/13/2017 Interval history No events overnight. Patient's pain is stable. His ostomy is producing gas. He is tolerating his diet with no nausea or vomiting. Physical exam The patient is afebrile with normal vital signs He has expected postoperative tenderness. His ostomy is pink and it is productive of air but no stool yet. The perineal wounds are healing but there is still some stool contamination in the wounds. We are treating this with wet-to-dry dressing changes once a day. Labs Reviewed Imaging None new Assessment and plan Continue wound care and antibiotics Repeat CT scan on Thursday of next
[2017-05-15] MEDS: TEMAZEPAM 7.5 MG CAPSULE PO PRN (21:37)
[2017-05-16] MEDS: metroNIDAZOLE INJ 500 MG in PREMIX 1 EACH IV SCH ×3 (00:07→17:08)
[2017-05-16] MEDS: PIPERACILLIN/TAZOBACTAM 3,375 MG in SODIUM CHLORIDE 0.9% 100 ML IV SCH ×3 (01:10→18:28)
[2017-05-16] MEDS: HYDROmorphone 2 MG/1 ML VIAL IV PRN ×5 (03:57→14:57)
[2017-05-16 04:59] LABS: Basophils # 0.1 10*3/uL (0.0-0.2); Basophils % 0.5 % (0.0-0.8); Eosinophils # 0.4 10*3/uL (0.0-0.87); Eosinophils % 3.2 % (0.00-10.9); Hematocrit 28.9 VOL% (42.0-52.0); Hemoglobin 8.6 GM/DL (14.0-18.0); Immature Granulocytes % 12.4 %; Immature Granulocytes Absolute 1.64 #; Lymphocytes # 1.2 10*3/uL (1.4-4.0); Lymphocytes % 8.7 % (21.2-54.2); Mean Corpuscular HGB Conc 29.8 GM/DL (32-36); Mean Corpuscular Hemoglobin 24 PG (27-34); Mean Corpuscular Volume 81.9 FL (87-102); Mean Platelet Volume 11.2 FL (9.6-12.0); Monocytes % 7.3 % (1.7-12.7); NRBC # 0.02 10*3/uL; Neutrophils % 67.9 % (38.7-73.9); Platelet Count 323 T/CUMM (130-400); Red Blood Count 3.53 MC/CUMM (3.8-5.5); Red Cell Distribution Width 21.9 % (9.3-17.3); White Blood Count 13.3 T/CUMM (4-12)
[2017-05-16 05:24] LABS: Alanine Aminotransferase 13 U/L (16-61); Albumin 1.4 G/DL (3.4-5.0); Alkaline Phosphatase 92 U/L (45-117); Aspartate Amino Transferase 28 U/L (0-37); Bilirubin,Total < 0.39 MG/DL (0.2-1.0); Blood Urea Nitrogen 3 MG/DL (7-18); Calcium 7.3 MG/DL (8.5-10.1); Glucose 105 MG/DL (74-106); Magnesium 2.3 MG/DL (1.8-2.4); Osmolality,Calculated 271.7 MOS/KG (273-304); Potassium 3.5 MMOL/L (3.5-5.1); Sodium 138 MMOL/L (136-145); Total Protein 4.9 G/DL (6.4-8.3)
[2017-05-16] MEDS: LACTATED RINGERS 1,000 ML IV SCH ×3 (05:25→19:00)
[2017-05-16] MEDS: GABAPENTIN 600 MG TABLET PO SCH ×3 (05:50→21:52)
[2017-05-16 05:52] LABS: Band Neutrophils 9 % (0-10); Eosinophils 4 % (0-10); Lymphocytes 6 % (20-55); Metamyelocytes 2 %; Myelocytes 3 %; Platelet Estimate Adequate; Segmented Neutrophils 68 % (50-85); Total Cells Counted 100
[2017-05-16 05:53] LABS: Burr Cells Slight; Giant Platelets Few; Hypochromasia 1+; Ovalocytes Slight
[2017-05-16 05:54] LABS: Microcytosis Slight
[2017-05-16] MEDS: METHOCARBAMOL 750 MG TABLET PO SCH ×3 (08:43→21:52)
[2017-05-16] MEDS: TAMSULOSIN 0.4 MG CAPSULE PO SCH ×2 (08:43→21:52)
[2017-05-16] MEDS: SODIUM HYPOCHLORITE 0.25% IRRIG 473 ML BOTTLE TOP SCH (10:05)
[2017-05-16] MEDS: CHLORHEXIDINE 4% SOLN 118 ML BOTTLE TOP SCH (10:05)
--- NOTE | 2017-05-16 10:33 | Event Note ---
05/16/2017. Patient progressing fairly nicely at this point time. Tolerating his diet well. Now has stool in his colostomy. Wound care is progressing to the perianal area.
--- NOTE | 2017-05-16 17:38 | Oncology Progress Note ---
Assessment and Plan (1) Rectal abscess Status: Acute Assessment and plan: Now s/p I&D on 05/12 and diverting ostomy 05/13 - continue Zosyn and Flagyl - ostomy now with some stool output - improving Current Visit: Yes (2) Intractable pain Status: Acute Assessment and plan: due to rectal abscess and radiated rectal cancer - on Fentanyl patch 25 mcg Q72h with PRN [place] and Dilaudid Current Visit: Yes (3) Metastatic rectal cancer Status: Acute Assessment and plan: now with diverting ostomy. Will f/u with Dr. Akbar after discharge to resume treatment Current Visit: Yes (4) Anemia associated with chemotherapy Status: Acute Assessment and plan: Stable. Monitoring Current Visit: Yes Oncology Subjective PN Interval history: 57 yo with metastatic rectal cancer undergoing concurrent chemo/RT to the rectum , found to have perirectal abscess. Went to OR for I&D on 05/12 and then diverting ostomy on 05/13/17. Continues on IV antibiotics and analgesics for intractable pain. Interval History: - continues to have intense pain in the rectum, particularly when moving from position to position in bed. Pain is tolerable with Fentanyl patch and IV Dilaudid and [place]. Worsened by stool still coming from blind sigmoid stump. - denies chest pain, dyspnea. Does have some post-surgical abdominal pain. Ostomy has been collecting gas and now liquid stool. - denies fever, chills, palpitations, nausea. Exam - Constitutional Vitals: Period Temp Pulse Resp BP Sys/Mccray Pulse Ox Last 24 Hr 98.1 F-98.6 F 88-97 18-20 102-127/71-76 91-92 Exam: Middle aged, obese white male, lying back in bed; looks comfortable at present. - Eye Eye Exam: Absent: scleral icterus (pink palpebral conjunctiva) - ENT ENT exam: Present: normal exam, normal oropharynx (normal rate and effort on RA ; diminished aeration of bases but otherwise CTAB) - Cardiovascular Cardiovascular exam: Present: RRR. Absent: JVD - GI/Abdominal GI/Abdominal exam: Present: other (ostomy in LLQ with some liquid stool present. Ostomy is pink. Abdomen is distended with some mild tenderness to palpation around LLQ) - Extremities Exam Extremities exam: Absent: edema - Psychiatric Psychiatric exam: Present: normal affect, normal mood - Skin Skin exam: Present: warm, dry Results - Labs CBC & BMP: 05/16/17 04:00 05/16/17 04:00 Quality Measures - VTE Contraindication to Pharmacological VTE Prophylaxis: High Risk of Bleeding
[2017-05-16] MEDS: TEMAZEPAM 7.5 MG CAPSULE PO PRN (21:52)
[2017-05-17] MEDS: metroNIDAZOLE INJ 500 MG in PREMIX 1 EACH IV SCH ×3 (00:05→15:47)
[2017-05-17] MEDS: HYDROmorphone 2 MG/1 ML VIAL IV PRN ×5 (00:07→17:41)
[2017-05-17] MEDS: PIPERACILLIN/TAZOBACTAM 3,375 MG in SODIUM CHLORIDE 0.9% 100 ML IV SCH ×3 (01:54→17:43)
[2017-05-17] MEDS: LACTATED RINGERS 1,000 ML IV SCH ×2 (03:14→13:37)
[2017-05-17] MEDS: GABAPENTIN 600 MG TABLET PO SCH ×3 (06:12→21:28)
[2017-05-17 06:40] LABS: Basophils # 0.1 10*3/uL (0.0-0.2); Basophils % 0.5 % (0.0-0.8); Eosinophils # 0.3 10*3/uL (0.0-0.87); Hematocrit 28.1 VOL% (42.0-52.0); Hemoglobin 8.3 GM/DL (14.0-18.0); Immature Granulocytes % 11.5 %; Immature Granulocytes Absolute 1.19 #; Lymphocytes # 0.8 10*3/uL (1.4-4.0); Lymphocytes % 7.4 % (21.2-54.2); Mean Corpuscular HGB Conc 29.5 GM/DL (32-36); Mean Corpuscular Hemoglobin 25 PG (27-34); Mean Corpuscular Volume 83.4 FL (87-102); Mean Platelet Volume 11.6 FL (9.6-12.0); Neutrophils % 67.6 % (38.7-73.9); Platelet Count 329 T/CUMM (130-400); Red Blood Count 3.37 MC/CUMM (3.8-5.5); Red Cell Distribution Width 22.4 % (9.3-17.3); White Blood Count 10.4 T/CUMM (4-12)
[2017-05-17 07:13] LABS: Alanine Aminotransferase 13 U/L (16-61); Albumin 1.4 G/DL (3.4-5.0); Alkaline Phosphatase 91 U/L (45-117); Aspartate Amino Transferase 27 U/L (0-37); Bilirubin,Total < 0.39 MG/DL (0.2-1.0); Blood Urea Nitrogen 3 MG/DL (7-18); Calcium 7.3 MG/DL (8.5-10.1); Glucose 102 MG/DL (74-106); Osmolality,Calculated 275.4 MOS/KG (273-304); Potassium 3.7 MMOL/L (3.5-5.1); Sodium 140 MMOL/L (136-145); Total Protein 4.9 G/DL (6.4-8.3)
[2017-05-17 07:26] LABS: Band Neutrophils 8 % (0-10); Elliptocytes Few; Eosinophils 4 % (0-10); Giant Platelets Few; Hypochromasia 1+; Lymphocytes 3 % (20-55); Myelocytes 2 %; Platelet Estimate Adequate; Segmented Neutrophils 74 % (50-85); Total Cells Counted 100
[2017-05-17 07:27] LABS: Microcytosis Slight
[2017-05-17] MEDS: TAMSULOSIN 0.4 MG CAPSULE PO SCH ×2 (09:27→21:28)
[2017-05-17] MEDS: METHOCARBAMOL 750 MG TABLET PO SCH ×3 (09:27→21:28)
[2017-05-17] MEDS: SODIUM HYPOCHLORITE 0.25% IRRIG 473 ML BOTTLE TOP SCH (09:28)
[2017-05-17] MEDS: CHLORHEXIDINE 4% SOLN 118 ML BOTTLE TOP SCH (09:28)
[2017-05-17] MEDS: fentaNYL 25 MCG/HR PATCH TRANSDERM SCH (09:29)
--- NOTE | 2017-05-17 11:09 | Event Note ---
05/17/2017. Patient is having good function through his colostomy at this time. Abdomen mildly distended with hypoactive bowel sounds present. Perineal area has [address] and he is having a moderate amount of stool looking type drainage from these wounds at this time. Maintain present wound care.
--- NOTE | 2017-05-17 13:27 | Oncology Progress Note ---
Assessment and Plan (1) Rectal abscess Status: Acute Assessment and plan: Now s/p I&D on 05/12 and diverting ostomy 05/13 - continue Zosyn and Flagyl. WBC back to normal range - ostomy now with solid stool output - improving. Continue pain control and wound care. Surgery planning for repeat CT next week Current Visit: Yes (2) Intractable pain Status: Acute Assessment and plan: due to rectal abscess and radiated rectal cancer - on Fentanyl patch 25 mcg Q72h with PRN [place] and Dilaudid Current Visit: Yes (3) Metastatic rectal cancer Status: Acute Assessment and plan: now with diverting ostomy created 05/13/17. Will f/u with Dr. Akbar after discharge to resume treatment Current Visit: Yes (4) Anemia associated with chemotherapy Status: Acute Assessment and plan: Stable. Monitoring Current Visit: Yes Oncology Subjective PN Interval history: 57 yo with metastatic rectal cancer undergoing chem with RT to the primary lesion, admitted with rectal abscesses. S/p I&D 05/12 and diverting ostomy . Interval History - still experiencing intense pain, though fewer spikes with the fentanyl patch and the PRN dilaudid and norco. - once in a comfortable position he does not want to move at all - denies dyspnea, chest pain, palpitations. Appetite has been ok. Ostomy now with solid stool output Exam - Constitutional Vitals: Period Temp Pulse Resp BP Sys/Mccray Pulse Ox Last 24 Hr 97.3 F-98.6 F 82-91 17-20 125-164/73-81 93-96 Exam: Middle aged, obese white male, lying back in bed; looks comfortable at present. - Head Head Exam: Present: normocephalic, atraumatic - Eye Eye Exam: Present: other (anicteric sclera, pink palpebral conjunctiva) - ENT ENT exam: Present: normal oropharynx - Respiratory Respiratory exam: Present: CTAB - Cardiovascular Cardiovascular exam: Present: RRR. Absent: JVD - GI/Abdominal GI/Abdominal exam: Present: other (Ostomy in LLQ with pink stoma and solid brown stool output) - Extremities Exam Extremities exam: Absent: calf tenderness, edema - Psychiatric Psychiatric exam: Present: normal affect, normal mood Results - Labs CBC & BMP: 05/17/17 04:00 05/17/17 04:00 Quality Measures - VTE Contraindication to Pharmacological VTE Prophylaxis: High Risk of Bleeding
[2017-05-17] MEDS: TEMAZEPAM 7.5 MG CAPSULE PO PRN (21:28)
[2017-05-18] MEDS: metroNIDAZOLE INJ 500 MG in PREMIX 1 EACH IV SCH ×3 (00:47→16:48)
[2017-05-18] MEDS: PIPERACILLIN/TAZOBACTAM 3,375 MG in SODIUM CHLORIDE 0.9% 100 ML IV SCH ×3 (01:46→16:57)
[2017-05-18] MEDS: HYDROmorphone 2 MG/1 ML VIAL IV PRN ×4 (04:12→21:13)
[2017-05-18 04:47] LABS: Basophils # 0.1 10*3/uL (0.0-0.2); Basophils % 0.9 % (0.0-0.8); Eosinophils # 0.2 10*3/uL (0.0-0.87); Eosinophils % 2.8 % (0.00-10.9); Hematocrit 33.4 VOL% (42.0-52.0); Immature Granulocytes % 10.4 %; Immature Granulocytes Absolute 0.91 #; Lymphocytes # 0.5 10*3/uL (1.4-4.0); Lymphocytes % 5.9 % (21.2-54.2); Mean Corpuscular HGB Conc 29.9 GM/DL (32-36); Mean Corpuscular Hemoglobin 25 PG (27-34); Mean Corpuscular Volume 82.5 FL (87-102); Mean Platelet Volume 10.7 FL (9.6-12.0); Monocytes # 0.9 10*3/uL (0.11-0.8); Monocytes % 10.1 % (1.7-12.7); Neutrophils # 6.1 10*3/uL (1.4-7.4); Neutrophils % 69.9 % (38.7-73.9); Platelet Count 328 T/CUMM (130-400); Red Blood Count 4.05 MC/CUMM (3.8-5.5); Red Cell Distribution Width 23.3 % (9.3-17.3); White Blood Count 8.7 T/CUMM (4-12)
[2017-05-18 05:24] LABS: Calcium 7.4 MG/DL (8.5-10.1); Osmolality,Calculated 271.7 MOS/KG (273-304); Potassium 3.8 MMOL/L (3.5-5.1)
[2017-05-18 05:34] LABS: Anisocytosis 2+; Band Neutrophils 2 % (0-10); Eosinophils 2 % (0-10); Lymphocytes 6 % (20-55); Macrocytosis 2+; Metamyelocytes 1 %; Platelet Estimate Normal; Polychromasia 1+; Segmented Neutrophils 78 % (50-85); Total Cells Counted 100
[2017-05-18] MEDS: GABAPENTIN 600 MG TABLET PO SCH ×3 (06:46→21:13)
--- NOTE | 2017-05-18 07:30 | Oncology Progress Note ---
Assessment and Plan (1) Rectal abscess Status: Acute Current Visit: Yes (2) Intractable pain Status: Acute Current Visit: Yes (3) Colorectal cancer Status: Acute Current Visit: No (4) Metastatic rectal cancer Status: Acute Current Visit: Yes (5) Iron deficiency anemia Status: Acute Current Visit: Yes (6) Anemia associated with chemotherapy Status: Acute Current Visit: Yes Oncology Subjective PN Interval history: Mr. Gloria appears to have had a good weekend. He states his pain is improving but he does still need parenteral Dilaudid for breakthrough pain. His lab work has improved and his hemoglobin today is greater than 10. We will set him up for a CT scan of his abdomen and pelvis tomorrow. I am unsure if surgery plans to change his dressings today. We will discuss his case with them later today to make a discharge disposition plan. He may need LTAC placement for dressing changes. I know he really wants to go home but I do not know if the amount of wound care he needs is attainable at home by his and home health. He has been afebrile now for the last 5-6 days. Her surgery notes this weekend, there is still some fecal contamination of his wound site. His ostomy is now putting out stool so our concern for any post op ileus is low. Physical therapy will continue working with him in bed. I still do not think he is at a place where he can get out of bed due to pain issues. We are most likely going to have a very delayed, slow healing process due to his extensive radiation in the perennial/rectal region. Exam - Constitutional Vitals: Period Temp Pulse Resp BP Sys/Mccray Pulse Ox Last 24 Hr 97.3 F-98.8 F 82-91 18-21 131-164/74-83 93-96 General appearance: normal weight, no acute distress - Head Head Exam: Present: normocephalic, atraumatic - Eye Eye Exam: Present: EOMI Pupils: Present: PERRL - ENT ENT exam: Present: normal exam, normal oropharynx - Neck Neck exam: Absent: lymphadenopathy, thyromegaly - Respiratory Respiratory exam: Present: CTAB. Absent: wheezes - Cardiovascular Cardiovascular exam: Present: RRR. Absent: JVD - GI/Abdominal GI/Abdominal exam: Present: soft. Absent: ascites, distended, mass - Neurological Exam Neurological exam: Present: alert, oriented X3 - Psychiatric Psychiatric exam: Present: normal affect, normal mood - Skin Skin exam: Present: warm, dry Results - Labs CBC & BMP: 05/18/17 04:12 05/18/17 04:12 Lab Results: I have reviewed the past 24 hour labs Quality Measures - VTE Contraindication to Pharmacological VTE Prophylaxis: High Risk of Bleeding
--- NOTE | 2017-05-18 07:37 | Urology Progress Note ---
Urology - PN: Subj Interval history: Discussed with Dr. Ramirez today. We will leave the catheter in another 2-3 days to be determined if a percutaneous drainage procedure will be needed Exam - Constitutional Vitals: Period Temp Pulse Resp BP Sys/Mccray Pulse Ox Last 24 Hr 97.3 F-98.8 F 82-91 18-21 131-164/74-83 93-96 Results - Labs CBC & BMP: 05/18/17 04:12 05/18/17 04:12
[2017-05-18] MEDS: TAMSULOSIN 0.4 MG CAPSULE PO SCH ×2 (09:33→21:13)
[2017-05-18] MEDS: METHOCARBAMOL 750 MG TABLET PO SCH ×3 (09:33→21:13)
[2017-05-18] MEDS: SODIUM HYPOCHLORITE 0.25% IRRIG 473 ML BOTTLE TOP SCH (09:39)
[2017-05-18] MEDS: CHLORHEXIDINE 4% SOLN 118 ML BOTTLE TOP SCH (09:39)
--- NOTE | 2017-05-18 11:50 | Event Note ---
General Surgery Progress Note Chief complaint This patient is a 57-year-old man with metastatic rectal cancer who was admitted with a malignant rectal fistula following chemoradiation that was treated with incision and drainage of the multiple abscesses related to the fistula followed by laparoscopic sigmoid colostomy on 05/13/2017 Interval history No events over the weekend. Physical exam The patient is afebrile with normal vital signs He has expected postoperative tenderness. His ostomy is pink and it is productive of air and stool The perineal wounds are healing well with decreased contamination of the wounds. Patient's pain is improving. Labs Reviewed Imaging None new Assessment and plan Continue wound care and antibiotics Repeat CT scan tomorrow
[2017-05-18] MEDS: TEMAZEPAM 7.5 MG CAPSULE PO PRN (21:13)
[2017-05-19] MEDS: metroNIDAZOLE INJ 500 MG in PREMIX 1 EACH IV SCH ×2 (00:02→08:00)
[2017-05-19] MEDS: PIPERACILLIN/TAZOBACTAM 3,375 MG in SODIUM CHLORIDE 0.9% 100 ML IV SCH ×3 (01:08→16:47)
[2017-05-19] MEDS: ONDANSETRON 4 MG/2 ML VIAL IV PRN (03:39)
[2017-05-19] MEDS: HYDROmorphone 2 MG/1 ML VIAL IV PRN ×3 (04:29→14:55)
[2017-05-19] MEDS: GABAPENTIN 600 MG TABLET PO SCH ×3 (05:50→21:24)
--- NOTE | 2017-05-19 07:31 | Oncology Progress Note ---
Assessment and Plan (1) Rectal abscess Status: Acute Current Visit: Yes (2) Intractable pain Status: Acute Current Visit: Yes (3) Colorectal cancer Status: Acute Current Visit: No (4) Metastatic rectal cancer Status: Acute Current Visit: Yes (5) Iron deficiency anemia Status: Acute Current Visit: Yes (6) Anemia associated with chemotherapy Status: Acute Current Visit: Yes Oncology Subjective PN Interval history: Mr. Gloria seems to be doing well this morning. He had a CT scan early this morning but I do not have the results back yet. We did this to make sure there was still no underlying abscess. If there does not appear to be an abscess we can likely discontinue his IV antibiotics after today. We will ask case management to see him to began working on getting a swing bed arranged with wound care. He will need dressing changes per surgery/wound care's instructions. Once he has completed swing bed rehab, we could then consider restarting chemotherapy. I do not anticipate us restarting him back on radiation therapy. Given the extent of his liver metastases, we will most likely just continue on with palliative chemotherapy only. Exam - Constitutional Vitals: Period Temp Pulse Resp BP Sys/Mccray Pulse Ox Last 24 Hr 96.7 F-98.3 F 75-95 20-21 129-153/72-84 90-97 General appearance: normal weight, no acute distress - Head Head Exam: Present: normocephalic, atraumatic - Eye Eye Exam: Present: EOMI Pupils: Present: PERRL - ENT ENT exam: Present: normal exam, normal oropharynx - Neck Neck exam: Absent: lymphadenopathy, thyromegaly - Respiratory Respiratory exam: Present: CTAB. Absent: wheezes - Cardiovascular Cardiovascular exam: Present: RRR. Absent: JVD, systolic murmur - GI/Abdominal GI/Abdominal exam: Present: soft. Absent: ascites, distended, firm, mass - Neurological Exam Neurological exam: Present: alert, oriented X3 - Psychiatric Psychiatric exam: Present: normal affect, normal mood - Skin Skin exam: Present: warm, dry Results - Labs CBC & BMP: 05/18/17 04:12 05/18/17 04:12 Lab Results: I have reviewed the past 24 hour labs - Diagnostic Findings Procedure: CT Abdomen and Pelvis: image reviewed by me Quality Measures - VTE Contraindication to Pharmacological VTE Prophylaxis: High Risk of Bleeding
--- NOTE | 2017-05-19 07:33 | CT Report ---
CT abdomen pelvis w con Indication: Perirectal abscess. CT ABDOMEN AND PELVIS WITH CONTRAST DLP: 3808 mGy*cm. One or more of the following dose reduction techniques was used: Automated exposure control, adjustment of the mA and/or kV according the patient size, or use of iterative reconstruction techniques. Comparison: 05/12/2017 Technique: Axial CT images of the abdomen and pelvis were obtained with IV contrast; Omnipaque 350, 100 cc. Oral contrast was administered. Abdomen: Heart size remains normal. There is a band of parenchymal scarring right lung base. A 7 mm right lower lobe pulmonary nodule is unchanged. Subcutaneous emphysema is now present left anterior chest wall tracking all the way the left groin. This appears associated with a drain located in the left groin region. IVC filter again shown. Multiple metastatic lesions throughout the liver are stable since 7 days ago. Spleen, pancreas, gallbladder, adrenal glands and kidneys are unchanged. No bowel obstruction. Left lower quadrant colostomy is stable. Pelvis: [place] catheter again noted. A complex fluid and air pocket in the perineum measures 47 x 41 mm in size and does not appear to be in continuity with the silicone drain in the perirectal space. Previously, this collection measured 55 x 51 mm in size. This appears to be anterior of the rectum and anus. Morris's pouch still contains stool and gas. Right acetabular orthopedic hardware noted. 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 Impression: 1. Slight decrease in size of perirectal abscess. On CT, it appears this abscess does not communicate with the perineal surgical drain that is present. 2. 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 Overall degree of inflammation and subcutaneous gas has decreased significantly from one week ago. 3. Metastatic disease to the liver. Right lower lobe pulmonary nodule. PROCEDURE INTERPRETED AT [facility] DEPARTMENT OF RADIOLOGY Final Report Signed by: Erick Joseph M.D.
--- NOTE | 2017-05-19 07:53 | Urology Progress Note ---
Urology - PN: Subj Interval history: We will possibly go back to intermittent catheterization tomorrow Exam - Constitutional Vitals: Period Temp Pulse Resp BP Sys/Mccray Pulse Ox Last 24 Hr 96.7 F-98.3 F 75-95 20-21 129-153/72-84 90-97 Results - Labs CBC & BMP: 05/18/17 04:12 05/18/17 04:12
[2017-05-19] MEDS: METHOCARBAMOL 750 MG TABLET PO SCH ×3 (08:00→20:46)
--- NOTE | 2017-05-19 08:05 | Event Note ---
General Surgery Progress Note Chief complaint This patient is a 57-year-old man with metastatic rectal cancer who was admitted with a malignant rectal fistula following chemoradiation that was treated with incision and drainage of the multiple abscesses related to the fistula followed by laparoscopic sigmoid colostomy on 05/13/2017 Interval history No events overnight. Physical exam The patient is afebrile with normal vital signs He has expected postoperative tenderness. His ostomy is pink and it is productive of air but there is no stool in the bag today Labs Reviewed Imaging His repeat CT scan shows decreased size of the fluid collection anterior to the rectum but it is unclear to me if this represents a true abscess or just a open area of the rectum related to radiation induced tumor necrosis. Regardless it is decreased in size. Assessment and plan Continue wound care and antibiotics Transfer to LTAC or swing bed and continue current care
[2017-05-19] MEDS: TAMSULOSIN 0.4 MG CAPSULE PO SCH ×2 (10:05→20:46)
[2017-05-19] MEDS: SODIUM HYPOCHLORITE 0.25% IRRIG 473 ML BOTTLE TOP SCH (10:06)
[2017-05-19] MEDS: CHLORHEXIDINE 4% SOLN 118 ML BOTTLE TOP SCH (10:07)
[2017-05-19] MEDS ORDERED: HEPARIN LOCK FLUSH 500 UNIT/5 ML SYRINGE IV ONE (15:29)
[2017-05-19] MEDS: metroNIDAZOLE 500 MG TABLET PO SCH (16:47)
[2017-05-20] MEDS: metroNIDAZOLE 500 MG TABLET PO SCH ×4 (00:41→23:35)
[2017-05-20] MEDS: PIPERACILLIN/TAZOBACTAM 3,375 MG in SODIUM CHLORIDE 0.9% 100 ML IV SCH ×3 (00:41→17:47)
[2017-05-20] MEDS: GABAPENTIN 600 MG TABLET PO SCH ×3 (06:05→21:25)
--- NOTE | 2017-05-20 07:39 | Discharge Summary ---
Hospital Course - Hospital Course Hospital Course: Mr. Gloria is a 57-year-old white male with newly diagnosed metastatic rectal cancer that we have been treating with concurrent chemotherapy and radiation to his primary lesion but he was admitted approximately 1 week ago with a perirectal abscess. This area was evaluated by general surgery by Dr. 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 The area was surgically drained and debrided. Drains were left in place for adequate healing. He is currently receiving wet-to-dry dressing changes while the wound heals. He underwent a diverting colostomy to prevent fecal contamination which was fairly significant at the time of initial evaluation. We have been treating him with IV antibiotics with a regimen of Zosyn and Flagyl. I would recommend that he does 7 more days of Zosyn IV and 7 more days of p.o. Flagyl. He has a history of BPH and requires self catheterizations at home. He currently has a Caruso catheter in place and urology is recommended to leave this in during his hospital stay and then have him resume intermittent self catheterizations once he goes home. CT scan done during this hospital stay showed that he had more numerous liver metastases and initially realized. This of course affects his prognosis and alters our treatment plan. I am uncertain if we will resume radiotherapy to the rectal region now that his treatment is truly palliative and given his current perirectal abscess. He is being discharged to an LTAC for continued wound care and IV antibiotics. Once he is discharged from the LTAC, I will see him back in clinic to discuss restarting chemotherapy. Diagnosis - Discharge Diagnosis (1) Rectal abscess Status: Acute (2) Intractable pain Status: Acute (3) Colorectal cancer Status: Acute (4) Metastatic rectal cancer Status: Acute (5) Iron deficiency anemia Status: Acute (6) Anemia associated with chemotherapy Status: Acute Discharge Plan - Discharge Data Disposition: Disch/Xfer-Ipshort Term Hos Condition at Discharge: Stable Discharge Diet: advance to your usual diet Activity: as per physical therapy - Discharge Medications New HYDROmorphone INJ [Dilaudid Inj] 4 mg IV Q2H PRN vial PRN Reason: Pain Severe (8-10) HYDROmorphone INJ [Dilaudid Inj] 2 mg IV Q2H PRN vial PRN Reason: Pain Severe (8-10) Piperacillin/Tazobactam [Zosyn] 3,375 mg IV Q8H 7 Days fentaNYL 25 MCG/HR PATCH [Duragesic 25 Patch] 1 patch TRANSDERM Q3DAY #10 patch metroNIDAZOLE TAB [Flagyl Cap/Tab] 500 mg PO Q8H 7 Days Continue Gabapentin Cap/Tab [Neurontin Cap/Tab] 600 mg PO Q8H tablet Tamsulosin [Flomax] 0.4 mg PO BID capsule Methocarbamol Tab [Robaxin Tab] 750 mg PO TID Finasteride [Proscar] 5 mg PO DAILY tablet HYDROcodone/ACETAMIN 10-325 [[place] 10-325] 1 tablet PO Q4H PRN #20 tablet PRN Reason: Pain Moderate (4-7) Ondansetron Tab [Zofran Tab] 8 mg PO Q6H PRN PRN Reason: Nausea - Follow Up or Referral - Forms/Instructions Exam - Constitutional Vitals: Period Temp Pulse Resp BP Sys/Mccray Pulse Ox Last 24 Hr 96.6 F-98.4 F 79-84 16-20 123-132/77-81 93-96 DS: Provider Date of admission: 05/11/17 09:24 Primary care physician: . No PCP Attending physician on admission: Malcolm Akbar MD Consults: 05/11/17 10:39 Consult to Dietitian [CONS] Routine Reason for Dietitian: Diet Instruction 05/11/17 10:57 Consult to Physician [CONS] Routine Comment: Possible perirectal abcess Consulting Provider: Sebastián Ramirez Consulting Provider Notified: Yes When should Consulting Provider be notified: Now Consult to Specialist Group: Surgery When should Consulting Provider be notified: Now Person Notified: Juliana Buitrago RN Date Notified: 05/11/17 Time Notified: 11:39 05/11/17 14:25 Consult to Anesthesiology [CONS] Routine Consulting Provider: Reason for Anesthesiology: Pre-op Clearance 05/12/17 11:17 Consult to Anesthesiology [CONS] Routine Consulting Provider: Reason for Anesthesiology: Pre-op Clearance 05/12/17 15:21 Consult to Physician [CONS] Routine Comment: Consulting Provider: Storm Cleveland Consulting Provider Notified: Yes When should Consulting Provider be notified: Now Consult to Specialist Group: Urology When should Consulting Provider be notified: Now Person Notified: christen Date Notified: 05/12/17 Time Notified: 15:24 Consult Notification Comment: 05/13/17 15:00 Consult to Wound Care - [place] [CONS] Routine Reason for Wound Care: Other Consult Comment: New colostomy placed, educate pt and family 05/15/17 08:35 Consult to Physical Therapy [CONS] Routine Reason for Physical Therapy: Evaluate and Treat Consult Comment: In bed PT only for now 05/19/17 07:27 Consult to Case Mgmt/Social Srvs [CONS] Routine Reason for Case Mgmt/Social Srvs: Swingbed/SNF/Jail Consult Comment: Pt needs swingbed with wound care. 05/19/17 14:46 Consult to Case Mgmt/Social Srvs [CONS] Routine Reason for Case Mgmt/Social Srvs: LTAC Consult Comment: daniella Discharging clinician: Malcolm Akbar MD
--- NOTE | 2017-05-20 07:40 | Urology Progress Note ---
Urology - PN: Subj Interval history: The patient wants to continue the Caruso catheter until he is transferred to swing bed Exam - Constitutional Vitals: Period Temp Pulse Resp BP Sys/Mccray Pulse Ox Last 24 Hr 96.6 F-98.4 F 79-84 16-20 123-132/77-81 93-96 Results - Labs CBC & BMP: 05/18/17 04:12 05/18/17 04:12
[2017-05-20] MEDS: HYDROmorphone 2 MG/1 ML VIAL IV PRN ×2 (08:13→16:10)
--- NOTE | 2017-05-20 08:34 | Event Note ---
General Surgery Progress Note Chief complaint This patient is a 57-year-old man with metastatic rectal cancer who was admitted with a malignant rectal fistula following chemoradiation that was treated with incision and drainage of the multiple abscesses related to the fistula followed by laparoscopic sigmoid colostomy on 05/13/2017 Interval history No events overnight. Physical exam The patient is afebrile with normal vital signs He has expected postoperative tenderness. His ostomy is pink and it is productive of air and stool. Labs Reviewed Imaging None new Assessment and plan Continue wound care and antibiotics. Plan for repeat CT of the abdomen and pelvis in 1 month and I would continue antibiotics until then with hopes that this remaining abscess will resolve with wound care and antibiotics.
[2017-05-20] MEDS: TAMSULOSIN 0.4 MG CAPSULE PO SCH ×2 (10:09→21:25)
[2017-05-20] MEDS: METHOCARBAMOL 750 MG TABLET PO SCH ×3 (10:09→21:25)
[2017-05-20] MEDS: fentaNYL 25 MCG/HR PATCH TRANSDERM SCH (10:09)
[2017-05-20] MEDS: CHLORHEXIDINE 4% SOLN 118 ML BOTTLE TOP SCH (10:12)
[2017-05-20] MEDS: SODIUM HYPOCHLORITE 0.25% IRRIG 473 ML BOTTLE TOP SCH (10:13)
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
[2017-05-20] MEDS ORDERED: DIAZEPAM 5 MG TABLET PO ONE (13:47)
[2017-05-20] MEDS ORDERED: MIDAZOLAM 2 MG/2 ML VIAL ONE (14:32)
[2017-05-20] MEDS ORDERED: fentaNYL 100 MCG/2 ML VIAL ONE (14:32)
[2017-05-20] MEDS ORDERED: MIDAZOLAM 2 MG/2 ML VIAL IV ONE (14:59)
[2017-05-20] MEDS ORDERED: fentaNYL 100 MCG/2 ML VIAL IV ONE (14:59)
[2017-05-20] MEDS ORDERED: HEPARIN LOCK FLUSH 500 UNIT/5 ML SYRINGE IV ONE ×2 (15:37→15:41)
--- NOTE | 2017-05-20 17:27 | Post Interventional Procedure ---
Pre-op diagnosis: perirectal abscess Post-op diagnosis: same Procedure: CT guided abscess drainage catheter placement Contrast: none Flouroscopy: none Radiologist: César Leblanc Anesthesia: local, conscious sedation Medications: 100 mcg IV Fentanyl Total Sedation Time: 30 min Specimens: other (abscess sample sent for micro analysis) Estimated blood loss: none Complications: none Condition: stable Description/Findings: perirectal/pelvic abscess again seen on CT and targeted for drainage with 10 Fr pigtail drain. purulent material aspirated and sent for micro analysis patient tolerated well see formal dictation for details Assessment and Plan - Time spent with patient Time spent with patient: Greater than 30 minutes (1) Rectal abscess Problem details: not clearing with IV abx Status: Acute Assessment and plan: plan for image guided abscess drainage today or tomorrow Current Visit: Yes
--- NOTE | 2017-05-20 17:32 | CT Report ---
CT abscess drainage Abscess drainage using CT guidance Clinical Information: Interstitial mild rectal carcinoma status post colectomy/diversion with residual perirectal abscess not improving with intravenous antibiotic. Percutaneous drainage is requested. Physician[s]: Dr. Leblanc Procedure: The patient was advised of the benefits, risks, and alternatives of the procedure and informed consent was obtained. A time out was performed with verification of the patient's name, MRN, site of procedure, and type of procedure to be performed. Moderate sedation was performed by the physician including the presence of an independent trained observer that assisted in monitoring the patient's level of consciousness and physiological status. Following the administration of 100 mcg intravenous fentanyl and the physician spent 30 minutes of continuous [id number] time with the patient. The patient was placed in the prone on the CT gantry and a scan was performed through the region of interest. This demonstrates the collection in the perirectal soft tissues containing focal air, as seen on prior cross-sectional. After marking the overlying skin, the patient was prepped and draped in the usual sterile fashion. The soft tissues overlying the anticipated puncture site were anesthetized with lidocaine. Through this anesthetized diagnostic imaging region, a 20-gauge Chiba needle was passed into the fluid collection with intermittent CT fluoroscopic guidance. Purulent material was aspirated. An Amplatz wire was advanced into the fluid collection, over which a 10 [place] Cook all-purpose drain was passed. A fluid specimen was aspirated. Subsequent localized CT-scanning was performed to confirm the catheter location. The catheter was then locked, sutured in position with Percu-Stay device and placed to gravity drainage. The fluid specimen was labeled with the patient's name and medical record number and sent to the laboratory for further analysis. The patient tolerated the procedure well and was returned to the PRU in stable condition. EBL: < 5 mL. Complications: None. Total number of images for the procedure: 168 Conclusion: 1. Successful placement of a10 [place] pigtail drain in a perirectal/pelvic fluid collection. 2. The catheter should be flushed with 10 ml of normal saline every 24 hours. Record output minus flush daily. 3. The primary team should contact Interventional Radiology when output is less than 15 ml per day for two consecutive days. PROCEDURE INTERPRETED AT [facility] [place] DEPARTMENT OF RADIOLOGY Final Report Signed by: César Leblanc
[2017-05-20] MEDS: TEMAZEPAM 7.5 MG CAPSULE PO PRN (21:24)
[2017-05-21] MEDS: PIPERACILLIN/TAZOBACTAM 3,375 MG in SODIUM CHLORIDE 0.9% 100 ML IV SCH ×2 (01:38→09:36)
[2017-05-21] MEDS: GABAPENTIN 600 MG TABLET PO SCH (05:47)
[2017-05-21] MEDS: HYDROmorphone 2 MG/1 ML VIAL IV PRN (06:10)
--- NOTE | 2017-05-21 07:35 | Oncology Progress Note ---
Assessment and Plan (1) Rectal abscess Problem details: not clearing with IV abx Status: Acute Current Visit: Yes (2) Intractable pain Status: Acute Current Visit: Yes (3) Colorectal cancer Status: Acute Current Visit: No (4) Metastatic rectal cancer Status: Acute Current Visit: Yes (5) Iron deficiency anemia Status: Acute Current Visit: Yes (6) Anemia associated with chemotherapy Status: Acute Current Visit: Yes Oncology Subjective PN Interval history: Mr. Gloria seems to be doing well today. He underwent IR drainage of the perirectal abscess. A drain was left in place. This will need to be flushed per interventional radiology's instructions. We are awaiting approval from [facility] for further LTAC care. I will increase the dose of his fentanyl patch since he is still needing frequent Dilaudid injections. This can hopefully be tapered down as his wounds heal. He seems to be in good spirits and is motivated to get better. Exam - Constitutional Vitals: Period Temp Pulse Resp BP Sys/Mccray Pulse Ox Last 24 Hr 96.1 F-97.7 F 76-94 18-22 122-172/75-103 92-96 General appearance: normal weight, no acute distress - Head Head Exam: Present: normocephalic, atraumatic - Eye Eye Exam: Present: EOMI Pupils: Present: PERRL - ENT ENT exam: Present: normal exam, normal oropharynx - Neck Neck exam: Absent: lymphadenopathy, thyromegaly - Respiratory Respiratory exam: Present: CTAB. Absent: wheezes - Cardiovascular Cardiovascular exam: Present: RRR. Absent: JVD, systolic murmur - GI/Abdominal GI/Abdominal exam: Present: soft. Absent: ascites, distended, firm, mass - Neurological Exam Neurological exam: Present: alert, oriented X3 - Psychiatric Psychiatric exam: Present: normal affect, normal mood - Skin Skin exam: Present: warm, dry Results - Labs CBC & BMP: 05/18/17 04:12 05/18/17 04:12 Lab Results: I have reviewed the past 24 hour labs Quality Measures - VTE Contraindication to Pharmacological VTE Prophylaxis: High Risk of Bleeding
[2017-05-21 09:03] VITALS: BP 135/74
[2017-05-21] MEDS: METHOCARBAMOL 750 MG TABLET PO SCH (09:36)
[2017-05-21] MEDS: metroNIDAZOLE 500 MG TABLET PO SCH (09:36)
[2017-05-21] MEDS: TAMSULOSIN 0.4 MG CAPSULE PO SCH (09:36)
[2017-05-21] MEDS: CHLORHEXIDINE 4% SOLN 118 ML BOTTLE TOP SCH (09:42)
[2017-05-21] MEDS: SODIUM HYPOCHLORITE 0.25% IRRIG 473 ML BOTTLE TOP SCH (09:42)
[2017-05-21] MEDS ORDERED: HEPARIN LOCK FLUSH 500 UNIT/5 ML SYRINGE IV ONE (11:35)
== END 2017-05-21 12:21 | DRG 330 ==
LOC: N.4E 09:24
PROVIDERS: ADMIT Specialist; ATTEND Specialist